=== PATIENT | male | born 1960 | race Caucasian/White ===

== ENCOUNTER 2017-10-22 09:22 | Day surgery (SDC) | payer OTHER ==
[2017-10-19 16:17] VITALS: BMI 24.4
[~2017-10-22 09:22] MED LIST: LACTATED RINGERS 1,000 ML IV SCH; LIDOCAINE 1% 20 ML VIAL (10MG/ML) FOR IV START INTRADERMA PRN; MIDAZOLAM 2 MG/2 ML VIAL IV PRN
[2017-10-22 09:42] VITALS: TEMP 98.3
[2017-10-22] MEDS ORDERED: PROPOFOL 10 MG/ML 20 ML VIAL IV ONE (10:30)
[2017-10-22] MEDS ORDERED: LIDOCAINE 1% INJ 10MG/ML (20 ML MDV) ONE (10:30)
--- NOTE | 2017-10-22 10:45 | P.GSHP ---
History of Present Illness H&P Date: 10/22/17 Chief Complaint: History of colon polyps 's is a 56-year-old male with extensive colonoscopy. Patient has had. Colonoscopy is found have colon polyps. He presents today for colonoscopy. Past Medical History Additional Past Medical History / Comment(s): colon polyps History of Any Multi-Drug Resistant Organisms: MRSA Date of last positivie culture/infection: 2015 MDRO Source:: rt leg Past Surgical History: Tonsillectomy Additional Past Surgical History / Comment(s): surgery to finger Past Anesthesia/Blood Transfusion Reactions: Motion Sickness Smoking Status: Never smoker - Past Family History Brother(s) Family Medical History: Cancer Additional Family Medical History / Comment(s): melanoma on face Medications and Allergies Home Medications Medication Instructions Recorded Confirmed Type Calcium Carb/Magnesium Ox,Carb 1 tab PO DAILY 10/19/17 10/22/17 History [Yohan-Mag 500-250 MG Chewable] Calcium Chew 1 tab PO DAILY 10/19/17 10/22/17 History Allergies Allergy/AdvReac Type Severity Reaction Status Date / Time Penicillins Allergy Rash/Hives Verified 10/22/17 09:39 Surgical - Exam Vital Signs Temp Pulse Resp BP Pulse Ox 98.3 F 87 16 148/87 96 10/22/17 09:39 10/22/17 09:39 10/22/17 09:39 10/22/17 09:39 10/22/17 09:39 - General well developed, no distress - Eyes PERRL - ENT normal pinna - Neck no masses - Respiratory normal expansion - Cardiovascular Rhythm: regular - Abdomen Abdomen: soft, non tender Assessment and Plan Assessment: History: Polyps. We'll perform colonoscopy.
--- NOTE | 2017-10-22 10:53 | P.OP ---
Date of Procedure: 10/22/17 Preoperative Diagnosis: History colonic Polyps Postoperative Diagnosis: Rectal polyp Procedure(s) Performed: Colonoscopy Anesthesia: MAC Surgeon: Ebenezer Singer Pathology: other (Rectal polyp) Condition: stable Disposition: PACU Description of Procedure: The patient's placed on the endoscopy table in the lateral position. He received IV sedation. Digital rectal exam was performed which revealed no abnormalities. The flexible colonoscope was then placed patient anus and passed throughout the entire colon. The ileocecal valve was visualized. The cecum appeared normal. The ascending and transverse colon appeared normal. The descending and sigmoid colon appeared normal. The scope was then brought back the rectum and there was a small polyp seen this removed the forcep. Scope was withdrawn for patient.
[2017-10-22 11:22] VITALS: BP 117/76; PULSE 69; RESP 18
--- NOTE | 2017-10-26 14:40 | CDI ---
OP PHYSICIAN DOCUMENTATION CLARIFICATION REQUEST Date: 10/26/17 CDS/Car Icer Name: Judith Rodriguez Phone: If any questions, call Dimple Tony Client Resolution Specialist at [phone] Patient Name: Aly Olivera Admit Date: 10/22/17 Discharge Date: 10/22/17 ATTENTION: [facility] Coding Staff appreciate your assistance in clarifying documentation. Please respond to the clarification below the line at the bottom and electronically sign. [facility] Coding staff will review the response and follow-up if needed. Please note: Queries are made part of the Legal Health Record. If you have any questions, please contact the Client Resolution Specialist. Dear Dr. Singer, Please provide clarification as to the method that the rectal polyp was removed. Please clarify if it was hot or cold biopsy. The polyp was removed with the cold forcep MTDD
== END 2017-10-22 11:45 | disposition home or self-care (01) ==
LOC: ORWHC2ENDO 09:22
PROVIDERS: ATTEND Surgery
DX: Z12.11 Encounter for screening for malignant neoplasm of colon (principal); Z86.010 Personal history of colon polyps; D12.8 Benign neoplasm of rectum; Z86.14 Personal history of Methicillin resistant Staphylococcus aureus infection; Z88.0 Allergy status to penicillin
CPT/HCPCS: 88305; 45380; J2001; J2704

== ENCOUNTER 2021-01-23 09:20 | Day surgery (SDC) | payer OTHER ==
[2021-01-21 16:24] VITALS: BMI 25.7
[~2021-01-23 09:20] MED LIST changes: +LIDOCAINE 1% (10MG/ML) FOR IV START INTRADERMA PRN; -LIDOCAINE 1% 20 ML VIAL (10MG/ML) FOR IV START INTRADERMA PRN; -MIDAZOLAM 2 MG/2 ML VIAL IV PRN
[2021-01-23 09:54] VITALS: TEMP 97.3
[2021-01-23] MEDS ORDERED: LACTATED RINGERS 1,000 ML IV ONE (09:54)
[2021-01-23] MEDS ORDERED: PROPOFOL 10 MG/ML 20 ML VIAL IV ONE (10:24)
--- NOTE | 2021-01-23 10:31 | P.GSHP ---
History of Present Illness H&P Date: 01/23/21 Chief Complaint: History of colon polyps This a 6-year-old male with previous history of colon polyps. Patient rents today for colonoscopy Past Medical History Past Medical History: GERD/Reflux Additional Past Medical History / Comment(s): colon polyps History of Any Multi-Drug Resistant Organisms: MRSA Date of last positivie culture/infection: 2015 MDRO Source:: rt leg Past Surgical History: Tonsillectomy Additional Past Surgical History / Comment(s): surgery to finger, COLONOSCOPY X2 Past Anesthesia/Blood Transfusion Reactions: Motion Sickness Smoking Status: Never smoker - Past Family History Brother(s) Family Medical History: Cancer Additional Family Medical History / Comment(s): melanoma on face Medications and Allergies Home Medications Medication Instructions Recorded Confirmed Type Omeprazole [PriLOSEC] 20 mg PO AC-BRKFST 01/21/21 01/21/21 History Allergies Allergy/AdvReac Type Severity Reaction Status Date / Time Penicillins Allergy Rash/Hives Verified 01/21/21 15:54 Surgical - Exam Vital Signs Temp Pulse Resp BP Pulse Ox 97.3 F L 94 18 140/88 99 01/23/21 09:52 01/23/21 09:52 01/23/21 09:52 01/23/21 09:52 01/23/21 09:52 - General well developed, well nourished, no distress - Eyes PERRL - ENT normal pinna - Neck no masses - Respiratory normal expansion - Cardiovascular Rhythm: regular - Abdomen Abdomen: soft, non tender Assessment and Plan Assessment: We'll perform colonoscopy.
--- NOTE | 2021-01-23 10:46 | P.OP ---
Date of Procedure: 01/23/21 Preoperative Diagnosis: History of colon polyps Postoperative Diagnosis: Transverse colon polyp Procedure(s) Performed: Colonoscopy Anesthesia: MAC Surgeon: Ebenezer Singer Pathology: other (Transverse colon polyp) Condition: stable Disposition: PACU Description of Procedure: The patient's placed on the endoscopy table in the lateral position. He received IV sedation. Digital rectal exam was performed which revealed a few external hemorrhoids. The possible colonoscope was then placed patient anus p assed throughout the entire colon. The ileocecal valve was visualized. Cecum, ascending colon appeared normal. In the transverse colon there was a small polyp seen was removed with the cold forcep. The remainder of the transverse colon appeared normal. The descending and sigmoid colon. Scope was brought back the rectum this appeared normal. Scope withdrawn for patient.
[2021-01-23 11:00] VITALS: RESP 16
[2021-01-23 11:07] VITALS: BP 121/71; PULSE 89
== END 2021-01-23 11:38 | disposition home or self-care (01) ==
LOC: ORWHC2ENDO 09:20
PROVIDERS: ATTEND Surgery
DX: Z12.11 Encounter for screening for malignant neoplasm of colon (principal); D12.3 Benign neoplasm of transverse colon; K21.9 Gastro-esophageal reflux disease without esophagitis; K64.4 Residual hemorrhoidal skin tags; Z86.010 Personal history of colon polyps; Z86.14 Personal history of Methicillin resistant Staphylococcus aureus infection; Z90.89 Acquired absence of other organs; Z98.890 Other specified postprocedural states; Z80.8 Family history of malignant neoplasm of other organs or systems; Z79.899 Other long term (current) drug therapy; Z88.0 Allergy status to penicillin
CPT/HCPCS: 88305; 45380; J2704

== ENCOUNTER 2022-11-02 10:11 | Emergency (ER) | payer OTHER ==
[2022-11-02 11:05] VITALS: RESP 18
--- NOTE | 2022-11-02 11:05 | ED ---
GI Bleed HPI - General Chief complaint: GI Bleed Stated complaint: blood in stool Time Seen by Provider: 11/02/22 10:35 Source: patient, RN notes reviewed Mode of arrival: ambulatory Limitations: no limitations - History of Present Illness Initial comments: Patient is a pleasant 61-year-old male presenting to the emergency room with complaints of gastrointestinal bleeding. He reports that he noticed some darker stool approximately 3 days ago and then yesterday his stool changed to a dark tarry sticky-like consistency which it continues to be. He also reports some blood coloring/tinging to the dark black stool. He had some indigestion previously when symptoms first began but his heartburn symptoms resolved with the use of his as needed prescription of Prevacid. He does have a history of bleeding gastric ulcer when he was a teenager but had did not have any bloody stools from this event. He also has a history of colonoscopies with multiple polyps removed and she is due for repeat colonoscopy at this time. He states that he is not on any blood thinners. He reports that his heartburn symptoms are rare and he is not having any at this time. He denies any other complaints or concerns including any chest pain, abdominal pain, shortness of breath, nausea, vomiting, headache, dizziness, fevers or chills. He has no other significant medical history except as stated above. - Related Data Home Medications Medication Instructions Recorded Confirmed Omeprazole [PriLOSEC] 20 mg PO DAILY PRN 01/21/21 11/02/22 Allergies Allergy/AdvReac Type Severity Reaction Status Date / Time Penicillins Allergy Rash/Hives Verified 11/02/22 11:39 Review of Systems ROS Statement: Those systems with pertinent positive or pertinent negative responses have been documented in the HPI. ROS Other: All systems not noted in ROS Statement are negative. Past Medical History Past Medical History: GERD/Reflux Additional Past Medical History / Comment(s): colon polyps History of Any Multi-Drug Resistant Organisms: MRSA Date of last positivie culture/infection: 2015 MDRO Source:: rt leg Past Surgical History: Tonsillectomy Additional Past Surgical History / Comment(s): surgery to finger, COLONOSCOPY X2 Past Anesthesia/Blood Transfusion Reactions: Motion Sickness Past Psychological History: No Psychological Hx Reported Smoking Status: Never smoker Past Alcohol Use History: Occasional Past Drug Use History: None Reported - Past Family History Brother(s) Family Medical History: Cancer Additional Family Medical History / Comment(s): melanoma on face General Exam Limitations: no limitations General appearance: alert, in no apparent distress Head exam: Present: atraumatic, normocephalic, normal inspection Eye exam: Present: normal appearance, PERRL, EOMI. Absent: scleral icterus, conjunctival injection, periorbital swelling ENT exam: Present: normal exam, mucous membranes moist Neck exam: Present: normal inspection, full ROM Respiratory exam: Present: normal lung sounds bilaterally. Absent: respiratory distress, wheezes, rales, rhonchi, stridor Cardiovascular Exam: Present: regular rate, normal rhythm, normal heart sounds. Absent: systolic murmur, diastolic murmur, rubs, gallop, clicks GI/Abdominal exam: Present: soft, normal bowel sounds. Absent: distended, tenderness, guarding, rebound, rigid, mass Rectal exam: Present: normal rectal tone, heme (+) stool. Absent: fecal impaction, hemorrhoids, mass, tenderness Extremities exam: Present: normal inspection. Absent: pedal edema, joint swelling Back exam: Present: normal inspection Neurological exam: Present: alert, oriented X3, CN II-XII intact Psychiatric exam: Present: normal affect, normal mood Skin exam: Present: warm, dry, intact, normal color. Absent: rash Course Vital Signs 11/02/22 11/02/22 11/02/22 10:23 11:05 12:41 Temperature 98.2 F 97.7 F Pulse Rate 100 89 80 Respiratory 20 18 18 Rate Blood Pressure 132/84 126/90 131/86 O2 Sat by Pulse 99 98 95 Oximetry Medical Decision Making - Medical Decision Making Was pt. sent in by a medical professional or institution (, PA, [employer], urgent care, hospital, or intermediate...) When possible be specific @ -No Did you speak to anyone other than the patient for history (EMS, parent, family, police, friend...)? What history was obtained from this source @ -No Did you review nursing and triage notes (agree or disagree)? Why? @ -I reviewed and agree with nursing and triage notes Were old charts reviewed (outside hosp., previous admission, EMS record, old EKG, old radiological studies, urgent care reports/EKG's, intermediate records)? Report findings @ -No old charts were reviewed Differential Diagnosis (chest pain, altered mental status, abdominal pain women, abdominal pain men, vaginal bleeding, weakness, fever, dyspnea, syncope, headache, dizziness, GI bleed, back pain, seizure, CVA, palpatations, mental health, musculoskeletal)? @ -Differential GI Bleed: Esophageal varices, aortoenteric fistula, Fadia-Chavez, gastritis, peptic ulcer disease, diverticulosis, inflammatory bowel disease, hemorrhoids, fissure, colitis, malignancy, Meckels diverticulum, this is not meant to be an all- inclusive list. EKG interpreted by me (3pts min.). @ -Sinus rhythm, ventricular rate 79 bpm, WA interval 146 ms, QRS duration 90 ms, QT/QTC 333/365 ms, PRT axes 52, 40, 47. X-rays interpreted by me (1pt min.). @ -None done CT interpreted by me (1pt min.). @ -CT of the abdomen and pelvis with contrast no evidence of underlying etiology of gastrointestinal bleeding. No obstruction or free fluid or free air. Per radiologist report intraluminal lipoma within the distal loop of the ileum quadrant small bowel appears to be surrounding mesentery just proximal to the intraluminal lipoma without intussusception. U/S interpreted by me (1pt. min.). @ -None done What testing was considered but not performed or refused? (CT, X-rays, U/S, labs)? Why? @ -None What meds were considered but not given or refused? Why? @ -Analgesics and antiemetics offered and declined. Did you discuss the management of the patient with other professionals (prof haddad i.e. , PA, [employer], lab, RT, psych nurse, oncology social work, reducing machine operator, teacher, staff mine warfare officer, case management rn)? Give summary @ -Yes, spoke with GI specialist on-call x[facility]ray [place] who is accepting of patient to their service but for patient to be presented to the emergency room under Dr. Rhonda easton for ERT ER transfer for further evaluation of GI bleed due to GI services not being available at our facility and requesting transfer to [facility]. Was smoking cessation discussed for >3mins.? @ -No Was critical care preformed (if so, how long)? @ -No Were there social determinants of health that impacted care today? How? (Homelessness, low income, unemployed, alcoholism, drug addiction, transportation, low edu. Level, literacy, decrease access to med. care, fdc, rehab)? @ -No Was there de-escalation of care discussed even if they declined (Discuss DNR or withdrawal of care, Hospice)? DNR status @ -No What co-morbidities impacted this encounter? (DM, HTN, Smoking, COPD, CAD, Cancer, CVA, ARF, Chemo, Hep., AIDS, mental health diagnosis, sleep apnea, morbid obesity)? @ -None Was patient admitted / discharged? Hospital course, mention meds given and route, prescriptions, significant lab abnormalities, going to OR and other pertinent info. @ -61-year-old male presenting to the emergency room with complaints of bloody tarry stool ongoing for 2-3 days with worsening of stool presentation in the last 24 hours. We've episode of heartburn now resolved after home Pepcid dosing. Digital rectal exam completed showing no anal fissures no significant rectal tenderness normal rectal tone and stool occult blood obtained. Will start workup for GI bleed with further laboratory studies of CBC, CMP, lactic acid, magnesium, troponin, coags, CBC and type and screen. Will obtain CT of the abdomen and pelvis with contrast along with EKG. Analgesics and antiemetics offered and declined. Asymptomatic of anemia will hold IV fluids at this time as well. CBC normal, coags normal, CMP shows low sodium at 136 otherwise no abnormalities normal renal function, normal liver function, normal alkaline phosphate, normal remaining electrolytes including magnesium. Lactic acid 0.9. Stool focal blood positive. Advised patient to to know GI coverage availability patient will need transfer to another facility. Patient is requesting to be transferred to [facility]. After computed tomography scan is completed will begin transfer arrangements. Computed tomography scan with incidental finding of lipoma not likely affecting current GI bleed. No intussusception secondary to lipoma. No underlying etiology of GI bleed identified on computed tomography scan. Spoke with Dr. Helm at [facility] where patient wishes to be transferred for GI services along with GI specialist on-call who accepted the patient to be transferred from our ER to their ER. Will transfer patient in stable condition to [facility] emergency room for further evaluation and treatment of GI bleed. Undiagnosed new problem with uncertain prognosis? @ -No Drug Therapy requiring intensive monitoring for toxicity (Heparin, Nitro, Insulin, Cardizem)? @ -No Were any procedures done? @ -No Diagnosis/symptom? @ -GI bleed Acute, or Chronic, or Acute on Chronic? @ -Acute Uncomplicated (without systemic symptoms) or Complicated (systemic symptoms)? @ -Complicated Side effects of treatment? @ -No Exacerbation, Progression, or Severe Exacerbation? @ -No Poses a threat to life or bodily function? How? (Chest pain, USA, AL, pneumonia, PE, COPD, DKA, ARF, appy, cholecystitis, CVA, Diverticulitis, Homicidal, Suicidal, threat to staff... and all critical care pts) @ -Yes, GI bleed at risk for anemia and associated symptoms related to anemia. Case discussed with Dr. Meyer - Lab Data Result diagrams: 11/02/22 10:55 11/02/22 10:55 Lab Results 11/02/22 11/02/22 11/02/22 Range/Units 10:55 10:55 10:55 WBC 7.0 (3.8-10.6) k/uL RBC 4.92 (4.30-5.90) m/uL Hgb 14.5 (13.0-17.5) gm/dL Hct 43.6 (39.0-53.0) % MCV 88.6 (80.0-100.0) fL MCH 29.5 (25.0-35.0) pg MCHC 33.3 (31.0-37.0) g/dL RDW 12.9 (11.5-15.5) % Plt Count 262 (150-450) k/uL MPV 7.2 Neutrophils % 56 % Lymphocytes % 33 % Monocytes % 5 % Eosinophils % 3 % Basophils % 1 % Neutrophils # 3.9 (1.3-7.7) k/uL Lymphocytes # 2.3 (1.0-4.8) k/uL Monocytes # 0.3 (0-1.0) k/uL Eosinophils # 0.2 (0-0.7) k/uL Basophils # 0.1 (0-0.2) k/uL PT 9.7 (9.0-12.0) sec INR 0.9 (<1.2) APTT 23.4 (22.0-30.0) sec Sodium (137-145) mmol/L Potassium (3.5-5.1) mmol/L Chloride (98-107) mmol/L Carbon Dioxide (22-30) mmol/L Anion Gap mmol/L BUN (9-20) mg/dL Creatinine (0.66-1.25) mg/dL Est GFR (CKD-EPI)AfAm (>60 ml/min/1.73 sqM) Est GFR (CKD-EPI)NonAf (>60 ml/min/1.73 sqM) Glucose (74-99) mg/dL Plasma Lactic Acid Tad (0.7-2.0) mmol/L Calcium (8.4-10.2) mg/dL Magnesium (1.6-2.3) mg/dL Total Bilirubin (0.2-1.3) mg/dL AST (17-59) U/L ALT (4-49) U/L Alkaline Phosphatase (38-126) U/L Troponin I (0.000-0.034) ng/mL Total Protein (6.3-8.2) g/dL Albumin (3.5-5.0) g/dL Stool Occult Blood Positive (Negative) Blood Type Blood Type Confirm Blood Type Recheck Bld Type Recheck Status Antibody Screen Spec Expiration Date 11/02/22 11/02/22 11/02/22 Range/Units 10:55 10:55 10:55 WBC (3.8-10.6) k/uL RBC (4.30-5.90) m/uL Hgb (13.0-17.5) gm/dL Hct (39.0-53.0) % MCV (80.0-100.0) fL MCH (25.0-35.0) pg MCHC (31.0-37.0) g/dL RDW (11.5-15.5) % Plt Count (150-450) k/uL MPV Neutrophils % % Lymphocytes % % Monocytes % % Eosinophils % % Basophils % % Neutrophils # (1.3-7.7) k/uL Lymphocytes # (1.0-4.8) k/uL Monocytes # (0-1.0) k/uL Eosinophils # (0-0.7) k/uL Basophils # (0-0.2) k/uL PT (9.0-12.0) sec INR (<1.2) APTT (22.0-30.0) sec Sodium 136 L (137-145) mmol/L Potassium 4.4 (3.5-5.1) mmol/L Chloride 103 (98-107) mmol/L Carbon Dioxide 26 (22-30) mmol/L Anion Gap 7 mmol/L BUN 18 (9-20) mg/dL Creatinine 1.05 (0.66-1.25) mg/dL Est GFR (CKD-EPI)AfAm 89 (>60 ml/min/1.73 sqM) Est GFR (CKD-EPI)NonAf 77 (>60 ml/min/1.73 sqM) Glucose 95 (74-99) mg/dL Plasma Lactic Acid Tad 0.9 (0.7-2.0) mmol/L Calcium 9.0 (8.4-10.2) mg/dL Magnesium 2.0 (1.6-2.3) mg/dL Total Bilirubin 0.6 (0.2-1.3) mg/dL AST 20 (17-59) U/L ALT 22 (4-49) U/L Alkaline Phosphatase 57 (38-126) U/L Troponin I <0.012 (0.000-0.034) ng/mL Total Protein 6.9 (6.3-8.2) g/dL Albumin 4.0 (3.5-5.0) g/dL Stool Occult Blood (Negative) Blood Type Blood Type Confirm Blood Type Recheck Bld Type Recheck Status Antibody Screen Spec Expiration Date 11/02/22 11/02/22 Range/Units 10:55 11:00 WBC (3.8-10.6) k/uL RBC (4.30-5.90) m/uL Hgb (13.0-17.5) gm/dL Hct (39.0-53.0) % MCV (80.0-100.0) fL MCH (25.0-35.0) pg MCHC (31.0-37.0) g/dL RDW (11.5-15.5) % Plt Count (150-450) k/uL MPV Neutrophils % % Lymphocytes % % Monocytes % % Eosinophils % % Basophils % % Neutrophils # (1.3-7.7) k/uL Lymphocytes # (1.0-4.8) k/uL Monocytes # (0-1.0) k/uL Eosinophils # (0-0.7) k/uL Basophils # (0-0.2) k/uL PT (9.0-12.0) sec INR (<1.2) APTT (22.0-30.0) sec Sodium (137-145) mmol/L Potassium (3.5-5.1) mmol/L Chloride (98-107) mmol/L Carbon Dioxide (22-30) mmol/L Anion Gap mmol/L BUN (9-20) mg/dL Creatinine (0.66-1.25) mg/dL Est GFR (CKD-EPI)AfAm (>60 ml/min/1.73 sqM) Est GFR (CKD-EPI)NonAf (>60 ml/min/1.73 sqM) Glucose (74-99) mg/dL Plasma Lactic Acid Tad (0.7-2.0) mmol/L Calcium (8.4-10.2) mg/dL Magnesium (1.6-2.3) mg/dL Total Bilirubin (0.2-1.3) mg/dL AST (17-59) U/L ALT (4-49) U/L Alkaline Phosphatase (38-126) U/L Troponin I (0.000-0.034) ng/mL Total Protein (6.3-8.2) g/dL Albumin (3.5-5.0) g/dL Stool Occult Blood (Negative) Blood Type O Positive Blood Type Confirm O Positive Blood Type Recheck No Previous Record Bld Type Recheck Status CABO Indicated Antibody Screen NEGATIVE Spec Expiration Date 11/05/2022 4432 - Radiology Data Radiology results: report reviewed, image reviewed Disposition Clinical Impression: GI (gastrointestinal bleed) Disposition: OTHER INSTITUTION NOT DEFINED Condition: Stable Referrals: Arvind Santamaria DO [Primary Care Provider] - 1-2 days Time of Disposition: 13:19 - Out of Hospital Transfer - Req. Specs Out of Hospital Transfer - Requested Specifics: Other Emergency Center (ER to [facility] accepting provider Dr. Helm)
[2022-11-02 11:13] LABS: Basophils # (A) 0.1 k/uL (0-0.2); Basophils % (A) 1 %; Eosinophils # (A) 0.2 k/uL (0-0.7); Eosinophils % (A) 3 %; HCT 43.6 % (39.0-53.0); HGB 14.5 gm/dL (13.0-17.5); Lymphocytes # (A) 2.3 k/uL (1.0-4.8); Lymphocytes % (A) 33 %; MCH 29.5 pg (25.0-35.0); MCHC 33.3 g/dL (31.0-37.0); MCV 88.6 fL (80.0-100.0); Mean Platelet Volume 7.2; Monocytes # (A) 0.3 k/uL (0-1.0); Monocytes % (A) 5 %; Neutrophils # (A) 3.9 k/uL (1.3-7.7); Neutrophils % (A) 56 %; Platelet Count 262 k/uL (150-450); RBC 4.92 m/uL (4.30-5.90); RDW 12.9 % (11.5-15.5)
[2022-11-02 11:21] LABS: INR 0.9 (<1.2); Partial Thromboplastin Time 23.4 sec (22.0-30.0); Prothrombin Time 9.7 sec (9.0-12.0)
[2022-11-02 11:32] LABS: ALT 22 U/L (4-49); AST 20 U/L (17-59); African American GFR (CKD) 89 (>60 ml/min/1.73 sqM); Alkaline Phosphatase 57 U/L (38-126); Anion Gap 7 mmol/L; Blood Urea Nitrogen 18 mg/dL (9-20); Carbon Dioxide 26 mmol/L (22-30); Chloride 103 mmol/L (98-107); Glucose 95 mg/dL (74-99); Non-African American GFR(CKD) 77 (>60 ml/min/1.73 sqM); Potassium 4.4 mmol/L (3.5-5.1); Sodium 136 mmol/L (137-145); Total Bilirubin 0.6 mg/dL (0.2-1.3); Total Protein 6.9 g/dL (6.3-8.2)
[2022-11-02 12:43] VITALS: TEMP 97.7
--- NOTE | 2022-11-02 13:00 | CT ---
EXAMINATION TYPE: CT abdomen pelvis w con DATE OF EXAM: 11/02/2022 COMPARISON: None INDICATION: Dark stool DLP: 976.6 mGycm, Automated exposure control for dose reduction was used. CONTRAST: 100 mL of Isovue 300. Study performed without Oral Contrast TECHNIQUE: Axial images were obtained from above the diaphragm to the pubic rami in the axial plane a t 5 mm thick sections. Reconstructed images are reviewed on the computer in the coronal plane. FINDINGS: Limited CT sections are obtained the lung bases. The lung bases are clear. CT ABDOMEN: Liver: Normal Spleen: Normal Pancreas: Normal Adrenal glands: The adrenal glands are normal. Gallbladder: Normal Kidneys: No masses are evident. No hydronephrosis is present. No cysts are present. Delayed images were obtained through the kidneys, which remain unremarkable. Aorta: Vascular calcification is within the aorta. Inferior vena cava: Normal. CT PELVIS: Study is without oral contrast which limits bowel evaluation. There is a loop of bowel surrounding a fatty area within the right lower quadrant. This appears to be small bowel loop and mesenteric fat. N o obvious volvulus is evident. Additionally, within the proximal distal ileum there is a 2.5 cm low d ensity structure compatible with the intraluminal fat lipoma measuring -79 Hounsfield units. No intus susception is evident this time. Appendix: Normal as visualized. Not identified. No dilated tubular structure or inflammatory changes are evident. Urinary bladder: Normal. Genitourinary structures: Osseous structures: No suspicious lytic or sclerotic lesions. IMPRESSIONS: 1. Appears to be an intraluminal lipoma within the distal loop of ileum quadrant. 2. Small bowel appears to be surrounding mesentery just proximal to the intraluminal lipoma. 3. No intussusception at this time.
[2022-11-02 14:16] VITALS: BP 110/58; PULSE 79
== END 2022-11-02 14:16 | disposition other institution (70) ==
LOC: EC 10:11
DX: K92.2 Gastrointestinal hemorrhage, unspecified (principal); K21.9 Gastro-esophageal reflux disease without esophagitis; Z88.0 Allergy status to penicillin; Z79.899 Other long term (current) drug therapy
CPT/HCPCS: 36415; 93005; 86900; 86901; 80053; 83605; 83735; 84484; 85025; 85610; 85730; 86850; 82272; 74177; 99285; Q9967

== ENCOUNTER → 2022-12-30 | Outpatient (CLI) | payer OTHER ==
--- NOTE | 2022-12-30 13:52 | FL ---
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 All patient questions were ans wered prior to start of procedure. A linen room attendant radiograph of the abdomen was also reviewed. Multiple flu oroscopic spot images of the esophagus, stomach and duodenum were obtained following ingestion of liq uid barium. After the completion of the upper gastrointestinal examination, a detailed small bowel e xamination was performed. The patient was asked to ingest additional liquid barium and incremental f rontal abdominal radiographs were then taken until contrast was visualized in the cecum. Fluoroscopic time: 1 minute 18 seconds Fluoroscopic images: 0 Radiographs taken: 77 DAP: Not reported due to age of machine [id number] FINDINGS: Upper GI examination: The linen room attendant abdominal radiograph demonstrates a normal bowel gas pattern without dilated loops of small or large bowel. There is no evidence for organomegaly or pneumoperitoneum. No abnormal calcificati ons. The visualized osseous structures are intact. The esophagus appears unremarkable without evidence of focal stricture, ulceration or abnormal outpou fifi. No hiatal hernia was visualized. No evidence of gastroesophageal reflux was seen when the p atient was instructed to bear down. The stomach and duodenum demonstrate a normal course and contou r. There is no evidence of focal gastric or duodenal ulceration, stricture, or abnormal outpouching. Small bowel mucosal folds are felt to be within normal limits. Detailed small bowel examination: Contrast is seen extending from the duodenojejunal junction into the cecum after two hours, which is within the expected time period. The small bowel follows normal distribution and contour without any evidence of extraluminal or intraluminal irregularity. There is no displacement of bowel loops or e xtraluminal extravasation of contrast material. IMPRESSION: 1. Normal upper gastrointestinal examination. 2. Normal detailed small bowel examination.
== END | disposition home or self-care (01) ==
LOC: RADFLMAIN 08:52
PROVIDERS: ATTEND Surgery
DX: D17.5 Benign lipomatous neoplasm of intra-abdominal organs (principal)
CPT/HCPCS: 74240; 74248

== ENCOUNTER 2023-02-18 18:47 | Inpatient (IN) | payer OTHER ==
[2023-02-18] MEDS ORDERED: SODIUM CHLORIDE 0.9% 1,000 ML IV STA (20:41)
[2023-02-18] MEDS ORDERED: ONDANSETRON 4 MG/2 ML VIAL IVP STA (20:41)
[2023-02-18] MEDS ORDERED: MORPHINE SULFATE 4 MG/ML SYRINGE IVP STA (20:42)
[2023-02-18 21:34] LABS: Basophils % (A) 0 %; Eosinophils # (A) 0.1 k/uL (0-0.7); Eosinophils % (A) 0 %; HGB 13.1 gm/dL (13.0-17.5); Lymphocytes # (A) 1.6 k/uL (1.0-4.8); Lymphocytes % (A) 12 %; MCH 27.9 pg (25.0-35.0); MCHC 32.7 g/dL (31.0-37.0); MCV 85.1 fL (80.0-100.0); Mean Platelet Volume 6.9; Monocytes # (A) 0.6 k/uL (0-1.0); Monocytes % (A) 4 %; Neutrophils # (A) 10.6 k/uL (1.3-7.7); Neutrophils % (A) 82 %; Platelet Count 385 k/uL (150-450); RDW 13.1 % (11.5-15.5)
[2023-02-18 21:35] LABS: Appearance,Urine Clear (Clear); Bilirubin,Urine Negative (Negative); Blood,Urine Negative (Negative); Color,Urine Yellow; Glucose,Urine (UA) Negative (Negative); Ketones,Urine 1+ (Negative); Leukocyte Esterase,Urine Negative (Negative); Nitrite,Urine Negative (Negative); Protein,Urine Trace (Negative); Specific Gravity,Urine 1.026 (1.001-1.035)
[2023-02-18 21:44] LABS: ALT 20 U/L (4-49); AST 18 U/L (17-59); African American GFR (CKD) >90 (>60 ml/min/1.73 sqM); Albumin 4.2 g/dL (3.5-5.0); Alkaline Phosphatase 80 U/L (38-126); Amylase 51 U/L (30-110); Anion Gap 12 mmol/L; Blood Urea Nitrogen 13 mg/dL (9-20); Calcium 9.5 mg/dL (8.4-10.2); Carbon Dioxide 25 mmol/L (22-30); Chloride 99 mmol/L (98-107); Glucose 118 mg/dL (74-99); Lipase 103 U/L (23-300); Non-African American GFR(CKD) >90 (>60 ml/min/1.73 sqM); Sodium 136 mmol/L (137-145); Total Bilirubin 0.5 mg/dL (0.2-1.3); Total Protein 7.2 g/dL (6.3-8.2)
[2023-02-18] MEDS ORDERED: FAMOTIDINE 20 MG/2 ML VIAL IV STA (23:04)
[2023-02-18] MEDS ORDERED: HYDROmorphone 1 MG/ML 1 ML SYRINGE IVP STA (23:19)
--- NOTE | 2023-02-18 23:26 | CT ---
EXAM: CT Abdomen and Pelvis With Intravenous Contrast CLINICAL HISTORY: CT Reason: abdominal pain TECHNIQUE: Axial computed tomography images of the abdomen and pelvis with intravenous contrast. CTDI is 19.0 mGy and DLP is 1060.3 mGy-cm. This CT exam was performed using one or more of the following dose reduction techniques: automated exposure control, adjustment of the mA and/or kV according to patient size, and/or use of iterative reconstruction technique. COMPARISON: November 02, 2022 FINDINGS: Lung bases: Trace amount of bibasilar subsegmental atelectasis in the lungs. ABDOMEN: Liver: Fatty infiltration of the liver. No focal liver lesion is seen. Gallbladder and bile ducts: Unremarkable. No calcified stones. No ductal dilation. Pancreas: Unremarkable. No mass. No ductal dilation. Spleen: Unremarkable. No splenomegaly. Adrenals: Unremarkable. No mass. Kidneys and ureters: Unremarkable. No solid mass. No hydronephrosis. Stomach and bowel: There is an approximately 7-8 cm long segment of small bowel to right colon intussusception. There appears to be a 2 cm fat density mass at the lead point. Scattered gas fluid levels throughout mildly distended but nondilated proximal to mid small bowel loops suggesting mild ileus or low-grade bowel obstruction. No pneumoperitoneum or abscess is seen. PELVIS: Appendix: No findings to suggest acute appendicitis. Bladder: Unremarkable. No mass. Reproductive: Unremarkable as visualized. ABDOMEN and PELVIS: Intraperitoneal space: There is a trace amount of free fluid in the pelvis. Bones/joints: Mild degenerative changes in the spine. No acute fracture or subluxation is seen. Soft tissues: Unremarkable. Vasculature: Unremarkable. No abdominal aortic aneurysm. Lymph nodes: Unremarkable. No enlarged lymph nodes. IMPRESSION: 1. There is an approximately 7-8 cm long segment of small bowel to right colon intussusception. There appears to be a 2 cm fat density mass at the lead point. 2. Scattered gas fluid levels throughout mildly distended but nondilated proximal to mid small bowel loops suggesting mild ileus or low-grade bowel obstruction. No pneumoperitoneum or abscess is seen. <MYCVCSECTION> Communications: 02/18/23 23:27 Call Doctor Regarding Above results, called Dr. Mcnally on 02/18 23:26 (-05:00)
[2023-02-18] MEDS ORDERED: NALOXONE 0.4 MG/ML 1 ML VIAL IV PRN (23:39)
[2023-02-18] MEDS ORDERED: PIPERACILLIN-TAZOBACTAM 3.375 GM in SODIUM CHLORIDE 0.9% 100 ML IVPB STA (23:43)
--- NOTE | 2023-02-18 23:45 | ED ---
Abdominal Pain HPI - General Chief Complaint: Abdominal Pain Stated Complaint: Abd Pain, Vomiting Time Seen by Provider: 02/18/23 20:32 Source: patient Mode of arrival: ambulatory Limitations: no limitations - History of Present Illness Initial Comments: 62-year-old male presenting with chief complaint of vomiting and abdominal pain. Symptoms started this morning. Patient states that symptoms initially started with severe pain in the epigastric region, now he has severe cramping pain to the lower abdomen. Admits to persistent nausea and vomiting. No fevers or chills. No dysuria or hematuria. No hematochezia, melena, or hematemesis. - Related Data Home Medications Medication Instructions Recorded Confirmed Omeprazole [PriLOSEC] 20 mg PO DAILY PRN 01/21/21 11/02/22 Allergies Allergy/AdvReac Type Severity Reaction Status Date / Time Penicillins Allergy Rash/Hives Verified 02/18/23 19:06 Review of Systems ROS Statement: Those systems with pertinent positive or pertinent negative responses have been documented in the HPI. ROS Other: All systems not noted in ROS Statement are negative. Past Medical History Past Medical History: GERD/Reflux Additional Past Medical History / Comment(s): colon polyps History of Any Multi-Drug Resistant Organisms: MRSA Date of last positivie culture/infection: 2015 MDRO Source:: rt leg Past Surgical History: Tonsillectomy Additional Past Surgical History / Comment(s): surgery to finger, COLONOSCOPY X2 Past Anesthesia/Blood Transfusion Reactions: Motion Sickness Past Psychological History: No Psychological Hx Reported Smoking Status: Never smoker Past Alcohol Use History: Occasional Past Drug Use History: None Reported - Past Family History Brother(s) Family Medical History: Cancer Additional Family Medical History / Comment(s): melanoma on face General Exam Limitations: no limitations General appearance: alert, in no apparent distress Head exam: Present: atraumatic, normocephalic, normal inspection Eye exam: Present: normal appearance, EOMI Neck exam: Present: normal inspection, full ROM Respiratory exam: Present: normal lung sounds bilaterally. Absent: respiratory distress, wheezes, rales, rhonchi, stridor Cardiovascular Exam: Present: regular rate, normal rhythm, normal heart sounds. Absent: systolic murmur, diastolic murmur, rubs, gallop, clicks GI/Abdominal exam: Present: soft, tenderness. Absent: distended, guarding, rebound, rigid Neurological exam: Present: alert, oriented X3 Psychiatric exam: Present: normal affect, normal mood Skin exam: Present: warm, dry, intact, normal color. Absent: rash Course Vital Signs 02/18/23 02/18/23 02/18/23 19:04 20:26 21:00 Temperature 98.4 F Pulse Rate 102 H 88 Respiratory 20 18 Rate Blood Pressure 149/87 152/86 O2 Sat by Pulse 99 99 98 Oximetry 02/18/23 22:00 Temperature Pulse Rate 79 Respiratory 18 Rate Blood Pressure 140/85 O2 Sat by Pulse 99 Oximetry Medical Decision Making - Medical Decision Making Was pt. sent in by a medical professional or institution (, PA, PATIENT REGISTRATION SUPERVISOR, urgent care, hospital, or snf...) When possible be specific @ -[No] Did you speak to anyone other than the patient for history (EMS, parent, family, police, friend...)? What history was obtained from this source @ -[No] Did you review nursing and triage notes (agree or disagree)? Why? @ -[I reviewed and agree with nursing and triage notes] Were old charts reviewed (outside hosp., previous admission, EMS record, old EKG, old radiological studies, urgent care reports/EKG's, snf records)? Report findings @ -[No old charts were reviewed] Differential Diagnosis (chest pain, altered mental status, abdominal pain women, abdominal pain men, vaginal bleeding, weakness, fever, dyspnea, syncope, headache, dizziness, GI bleed, back pain, seizure, CVA, palpatations, mental health, musculoskeletal)? @ -[facility] Differential Abdominal Pain Men: Appendicitis, cholecystitis, diverticulosis, ischemic bowel, pancreatitis, hepatitis, UTI, gastroenteritis, AAA, incarcerated hernia, bowel obstruction, constipation, inflammatory bowel, hepatitis, peptic ulcer disease, splenic infarction, perforated viscus, testicular torsion... This is not meant to be an all-inclusive list EKG interpreted by me (3pts min.). @ -[As above] X-rays interpreted by me (1pt min.). @ -[None done] CT interpreted by me (1pt min.). @ -There is an approximately 7-8 cm long segment of small bowel to the right colon intussusception. There appears to be 2 cm fat density mass at the lead point. Scattered gas fluid levels throughout mildly distended but nondilated proximal to mid small bowel loops suggesting mild ileus or low-grade bowel obstruction. No pneumoperitoneum or abscess is seen U/S interpreted by me (1pt. min.). @ -[None done] What testing was considered but not performed or refused? (CT, X-rays, U/S, l abs)? Why? @ -[None] What meds were considered but not given or refused? Why? @ -[None] Did you discuss the management of the patient with other professionals (professionals i.e. , PA, PATIENT REGISTRATION SUPERVISOR, lab, RT, psych nurse, social work assistant, big data developer, teacher, police officer booking, manager case)? Give summary @ -I spoke with Dr. Singer who accepted admission Was smoking cessation discussed for >3mins.? @ -[No] Was critical care preformed (if so, how long)? @ -[No] Were there social determinants of health that impacted care today? How? (Homelessness, low income, unemployed, alcoholism, drug addiction, transportation, low edu. Level, literacy, decrease access to med. care, mcc, rehab)? @ -[No] Was there de-escalation of care discussed even if they declined (Discuss DNR or withdrawal of care, Hospice)? DNR status @ -[No] What co-morbidities impacted this encounter? (DM, HTN, Smoking, COPD, CAD, Cancer, CVA, ARF, Chemo, Hep., AIDS, mental health diagnosis, sleep apnea, morbid obesity)? @ -[None] Was patient admitted / discharged? Hospital course, mention meds given and route, prescriptions, significant lab abnormalities, going to OR and other pertinent info. @ -62-year-old male presented chief complaint of abdominal pain nausea and vomiting that started today. History and physical exam were conducted. WBC 13.0. CT shows evidence of intussusception as well as ileus versus small bowel obstruction. I spoke with general surgeon on-call Dr. Singer. He advised starting the patient on antibiotics and he will evaluate the patient in the morning. Patient is placed nothing by mouth. Attempted to place an NG tube, was unsuccessful. Patient is started on Zosyn. He is educated on today's findings and treatment plan. He is in agreement with the plan. I discussed this case with my attending Dr. Dickens Undiagnosed new problem with uncertain prognosis? @ -[No] Drug Therapy requiring intensive monitoring for toxicity (Heparin, Nitro, Insulin, Cardizem)? @ -[No] Were any procedures done? @ -[No] Diagnosis/symptom? @ -Intussusception, small bowel obstruction Acute, or Chronic, or Acute on Chronic? @ -Acute Uncomplicated (without systemic symptoms) or Complicated (systemic symptoms)? @ -complicated Side effects of treatment? @ -[No] Exacerbation, Progression, or Severe Exacerbation? @ -[No] Poses a threat to life or bodily function? How? (Chest pain, USA, SD, pneumonia, PE, COPD, DKA, ARF, appy, cholecystitis, CVA, Diverticulitis, Homicidal, Suicidal, threat to staff... and all critical care pts) @ -Yes - Lab Data Result diagrams: 02/18/23 21:15 02/18/23 21:15 Lab Results 02/18/23 02/18/23 02/18/23 Range/Units 21:15 21:15 21:15 WBC 13.0 H (3.8-10.6) k/uL RBC 4.70 (4.30-5.90) m/uL Hgb 13.1 (13.0-17.5) gm/dL Hct 40.0 (39.0-53.0) % MCV 85.1 (80.0-100.0) fL MCH 27.9 (25.0-35.0) pg MCHC 32.7 (31.0-37.0) g/dL RDW 13.1 (11.5-15.5) % Plt Count 385 (150-450) k/uL MPV 6.9 Neutrophils % 82 % Lymphocytes % 12 % Monocytes % 4 % Eosinophils % 0 % Basophils % 0 % Neutrophils # 10.6 H (1.3-7.7) k/uL Lymphocytes # 1.6 (1.0-4.8) k/uL Monocytes # 0.6 (0-1.0) k/uL Eosinophils # 0.1 (0-0.7) k/uL Basophils # 0.0 (0-0.2) k/uL Sodium 136 L (137-145) mmol/L Potassium 4.0 (3.5-5.1) mmol/L Chloride 99 (98-107) mmol/L Carbon Dioxide 25 (22-30) mmol/L Anion Gap 12 mmol/L BUN 13 (9-20) mg/dL Creatinine 0.91 (0.66-1.25) mg/dL Est GFR (CKD-EPI)AfAm >90 (>60 ml/min/1.73 sqM) Est GFR (CKD-EPI)NonAf >90 (>60 ml/min/1.73 sqM) Glucose 118 H (74-99) mg/dL Plasma Lactic Acid Tad (0.7-2.0) mmol/L Calcium 9.5 (8.4-10.2) mg/dL Total Bilirubin 0.5 (0.2-1.3) mg/dL AST 18 (17-59) U/L ALT 20 (4-49) U/L Alkaline Phosphatase 80 (38-126) U/L Troponin I (0.000-0.034) ng/mL Total Protein 7.2 (6.3-8.2) g/dL Albumin 4.2 (3.5-5.0) g/dL Amylase 51 (30-110) U/L Lipase 103 (23-300) U/L Urine Color Yellow Urine Appearance Clear (Clear) Urine pH 6.0 (5.0-8.0) Ur Specific [place] 1.026 (1.001-1.035) Urine Protein Trace H (Negative) Urine Glucose (UA) Negative (Negative) Urine Ketones 1+ H (Negative) Urine Blood Negative (Negative) Urine Nitrite Negative (Negative) Urine Bilirubin Negative (Negative) Urine Urobilinogen 2.0 (<2.0) mg/dL Ur Leukocyte Esterase Negative (Negative) 02/18/23 02/18/23 Range/Units 21:15 21:15 WBC (3.8-10.6) k/uL RBC (4.30-5.90) m/uL Hgb (13.0-17.5) gm/dL Hct (39.0-53.0) % MCV (80.0-100.0) fL MCH (25.0-35.0) pg MCHC (31.0-37.0) g/dL RDW (11.5-15.5) % Plt Count (150-450) k/uL MPV Neutrophils % % Lymphocytes % % Monocytes % % Eosinophils % % Basophils % % Neutrophils # (1.3-7.7) k/uL Lymphocytes # (1.0-4.8) k/uL Monocytes # (0-1.0) k/uL Eosinophils # (0-0.7) k/uL Basophils # (0-0.2) k/uL Sodium (137-145) mmol/L Potassium (3.5-5.1) mmol/L Chloride (98-107) mmol/L Carbon Dioxide (22-30) mmol/L Anion Gap mmol/L BUN (9-20) mg/dL Creatinine (0.66-1.25) mg/dL Est GFR (CKD-EPI)AfAm (>60 ml/min/1.73 sqM) Est GFR (CKD-EPI)NonAf (>60 ml/min/1.73 sqM) Glucose (74-99) mg/dL Plasma Lactic Acid Tad 1.6 (0.7-2.0) mmol/L Calcium (8.4-10.2) mg/dL Total Bilirubin (0.2-1.3) mg/dL AST (17-59) U/L ALT (4-49) U/L Alkaline Phosphatase (38-126) U/L Troponin I <0.012 (0.000-0.034) ng/mL Total Protein (6.3-8.2) g/dL Albumin (3.5-5.0) g/dL Amylase (30-110) U/L Lipase (23-300) U/L Urine Color Urine Appearance (Clear) Urine pH (5.0-8.0) Ur Specific [place] (1.001-1.035) Urine Protein (Negative) Urine Glucose (UA) (Negative) Urine Ketones (Negative) Urine Blood (Negative) Urine Nitrite (Negative) Urine Bilirubin (Negative) Urine Urobilinogen (<2.0) mg/dL Ur Leukocyte Esterase (Negative) Disposition Clinical Impression: Intussusception, Small bowel obstruction Disposition: ADMITTED IP TO THIS HOSP Condition: Poor Time of Disposition: 23:45
[2023-02-18] MEDS ORDERED: PIPERACILLIN-TAZOBACTAM 3.375 GM in SODIUM CHLORIDE 0.9% 100 ML IVPB ONE (23:49)
[2023-02-19] MEDS: METOCLOPRAMIDE 5 MG/ML 2 ML VIAL IVP PRN ×2 (00:28→10:26)
[2023-02-19] MEDS: SODIUM CHLORIDE 0.9% 1,000 ML IV SCH ×3 (01:00→23:36)
[2023-02-19] MEDS: HYDROmorphone 1 MG/ML 1 ML SYRINGE IVP PRN ×5 (04:04→21:10)
[2023-02-19] MEDS: ONDANSETRON 4 MG/2 ML VIAL IVP PRN ×2 (07:35→21:09)
--- NOTE | 2023-02-19 09:52 | P.GSHP ---
History of Present Illness H&P Date: 02/19/23 Chief Complaint: Small bowel obstruction This a 60-year-old male who was admitted to the hospital complaints of abdominal pain nausea. Patient's CAT scan is suggestive of a small bowel dissection through the ileocecal valve. This may be related to a lipoma or polyp. Patient states she's had crampy abdominal pain for several days. He states she's had several of these attacks over the last year. Past Medical History Past Medical History: GERD/Reflux Additional Past Medical History / Comment(s): colon polyps History of Any Multi-Drug Resistant Organisms: MRSA Date of last positivie culture/infection: 2016 MDRO Source:: rt leg Past Surgical History: Tonsillectomy Additional Past Surgical History / Comment(s): surgery to finger, COLONOSCOPY X2 Past Anesthesia/Blood Transfusion Reactions: Motion Sickness Past Psychological History: No Psychological Hx Reported Smoking Status: Never smoker Past Alcohol Use History: Occasional Past Drug Use History: None Reported - Past Family History Brother(s) Family Medical History: Cancer Additional Family Medical History / Comment(s): melanoma on face Medications and Allergies Home Medications Medication Instructions Recorded Confirmed Type Omeprazole [PriLOSEC] 20 mg PO DAILY 01/21/21 02/19/23 History Cetirizine HCl [Zyrtec] 10 mg PO DAILY 02/19/23 02/19/23 History Magnesium 500 mg PO HS 02/19/23 02/19/23 History Allergies Allergy/AdvReac Type Severity Reaction Status Date / Time Penicillins Allergy Rash/Hives Verified 02/19/23 08:03 Surgical - Exam Vital Signs Temp Pulse Resp BP Pulse Ox 98.4 F 102 H 20 149/87 99 02/18/23 19:04 02/18/23 19:04 02/18/23 19:04 02/18/23 19:04 02/18/23 19:04 - General well developed, well nourished, no distress - Eyes PERRL - ENT normal pinna - Neck no masses - Respiratory normal expansion - Cardiovascular Rhythm: regular - Abdomen Abdomen: soft, non tender Results - Labs 02/18/23 21:15 02/18/23 21:15 Abnormal Lab Results - Last 24 Hours (Table) 02/18/23 02/18/23 02/18/23 Range/Units 21:15 21:15 21:15 WBC 13.0 H (3.8-10.6) k/uL Neutrophils # 10.6 H (1.3-7.7) k/uL Sodium 136 L (137-145) mmol/L Glucose 118 H (74-99) mg/dL Urine Protein Trace H (Negative) Urine Ketones 1+ H (Negative) Diabetes panel 02/18/23 Range/Units 21:15 Sodium 136 L (137-145) mmol/L Potassium 4.0 (3.5-5.1) mmol/L Chloride 99 (98-107) mmol/L Carbon Dioxide 25 (22-30) mmol/L BUN 13 (9-20) mg/dL Creatinine 0.91 (0.66-1.25) mg/dL Glucose 118 H (74-99) mg/dL Calcium 9.5 (8.4-10.2) mg/dL AST 18 (17-59) U/L ALT 20 (4-49) U/L Alkaline Phosphatase 80 (38-126) U/L Total Protein 7.2 (6.3-8.2) g/dL Albumin 4.2 (3.5-5.0) g/dL Calcium panel 02/18/23 Range/Units 21:15 Calcium 9.5 (8.4-10.2) mg/dL Albumin 4.2 (3.5-5.0) g/dL Pituitary panel 02/18/23 Range/Units 21:15 Sodium 136 L (137-145) mmol/L Potassium 4.0 (3.5-5.1) mmol/L Chloride 99 (98-107) mmol/L Carbon Dioxide 25 (22-30) mmol/L BUN 13 (9-20) mg/dL Creatinine 0.91 (0.66-1.25) mg/dL Glucose 118 H (74-99) mg/dL Calcium 9.5 (8.4-10.2) mg/dL Adrenal panel 02/18/23 Range/Units 21:15 Sodium 136 L (137-145) mmol/L Potassium 4.0 (3.5-5.1) mmol/L Chloride 99 (98-107) mmol/L Carbon Dioxide 25 (22-30) mmol/L BUN 13 (9-20) mg/dL Creatinine 0.91 (0.66-1.25) mg/dL Glucose 118 H (74-99) mg/dL Calcium 9.5 (8.4-10.2) mg/dL Total Bilirubin 0.5 (0.2-1.3) mg/dL AST 18 (17-59) U/L ALT 20 (4-49) U/L Alkaline Phosphatase 80 (38-126) U/L Total Protein 7.2 (6.3-8.2) g/dL Albumin 4.2 (3.5-5.0) g/dL Assessment and Plan Assessment: History a small obstruction related to small bowel: Intussusception. Patient will be observed. He may require another repeat computed tomography scan.
--- NOTE | 2023-02-19 10:07 | P.CONS ---
History of Present Illness - Reason for Consult Consult date: 02/19/23 Medical management - History of Present Illness History of present illness; patient is 62-year-old gentleman with past medical history significant for GERD who presented to the ER because of abdominal pain for 2 days. Patient states that he was all right yesterday morning when he started developing abdominal pain which was located in epigastric region, sharp in nature, associated with nausea and vomiting. Initially pain was mild but gradually increased in intensity and became cramping in nature. Denied any altered bowel movements. No complaint of blood in stools. No complaint of prior constipation. There was no complain of any fever or chills. Patient denied any recent eating out in restaurants. No sick contacts in the family. There was no complain of any urinary complaints. Because of these symptoms, patient came to the ER Initial lab work done in the ER showed WBC 13, hemoglobin 13.1, platelet count 385, sodium 1:30, potassium 4, BUN 13, creatinine 0.91, glucose 118, lactate 1.6, AST 18, ALT 20, UA negative for infection CT abdominal pelvis done showed approximately 7-8 cm long segment of small bowel and right colon intussusception there appears to be a 2 cm fat density at the lead point. Patient admitted to general surgery. Medicine team was consulted for medical management REVIEW OF SYSTEMS: CONSTITUTIONAL: No fever, no malaise, no fatigue. HEENT: No recent visual problems or hearing problems. Denied any sore throat. CARDIOVASCULAR: No chest pain, orthopnea, PND, no palpitations, no syncope. PULMONARY: No shortness of breath, no cough, no hemoptysis. GASTROINTESTINAL: As mentioned in HPI NEUROLOGICAL: No headaches, no weakness, no numbness. HEMATOLOGICAL: Denies any bleeding or petechiae. GENITOURINARY: Denies any burning micturition, frequency, or urgency. MUSCULOSKELETAL/RHEUMATOLOGICAL: Denies any joint pain, swelling, or any muscle pain. ENDOCRINE: Denies any polyuria or polydipsia. The rest of the 14-point review of systems is negative. PHYSICAL EXAMINATION: GENERAL: The patient is alert and oriented x3, not in any acute distress. Well developed, well nourished. HEENT: Pupils are round and equally reacting to light. EOMI. No scleral icterus. No conjunctival pallor. Normocephalic, atraumatic. No pharyngeal erythema. No thyromegaly. CARDIOVASCULAR: S1 and S2 present. No murmurs, rubs, or gallops. PULMONARY: Chest is clear to auscultation, no wheezing or crackles. ABDOMEN: Distended, nontender, bowel sounds not audible.. No palpable organomegaly. MUSCULOSKELETAL: No joint swelling or deformity. EXTREMITIES: No cyanosis, clubbing, or pedal edema. NEUROLOGICAL: Gross neurological examination did not reveal any focal deficits. SKIN: No rashes. Assessment and plan Intussusception of SMALL bowel Leukocytosis Abdominal pain Monitor vital signs Monitor CBC Monitor CMP Keep patient nothing by mouth NG tube ordered by surgery Monitor electrolytes Continue bowel rest Continue IV fluids Continue antiemetics Serial abdominal exams Resume home meds Gen. surgery consulted Labs and medication were reviewed.. Continue same treatment. Continue with symptomatic treatment. Resume home medication. Monitor labs and vitals. DVT and GI prophylaxis. Further recommendations as per clinical course of the patient Dictation was produced using [employer] dictation software. please excuse any grammatical, word or spelling errors. Past Medical History Past Medical History: GERD/Reflux Additional Past Medical History / Comment(s): colon polyps History of Any Multi-Drug Resistant Organisms: MRSA Year Discovered:: 2015 MDRO Source:: rt leg Past Surgical History: Tonsillectomy Additional Past Surgical History / Comment(s): surgery to finger, COLONOSCOPY X2 Past Anesthesia/Blood Transfusion Reactions: Motion Sickness Past Psychological History: No Psychological Hx Reported Smoking Status: Never smoker Past Alcohol Use History: Occasional Past Drug Use History: None Reported - Past Family History Brother(s) Family Medical History: Cancer Additional Family Medical History / Comment(s): melanoma on face Medications and Allergies Home Medications Medication Instructions Recorded Confirmed Type Omeprazole [PriLOSEC] 20 mg PO DAILY 01/21/21 02/19/23 History Cetirizine HCl [Zyrtec] 10 mg PO DAILY 02/19/23 02/19/23 History Magnesium 500 mg PO HS 02/19/23 02/19/23 History Allergies Allergy/AdvReac Type Severity Reaction Status Date / Time Penicillins Allergy Rash/Hives Verified 02/19/23 08:03 Physical Exam Vitals: Vital Signs Temp Pulse Resp BP Pulse Ox 02/19/23 07:26 98.5 F 90 18 142/81 94 L 02/19/23 06:19 97.4 F L 74 18 131/74 100 02/19/23 02:00 134/78 02/19/23 01:00 147/90 02/19/23 00:00 151/87 02/18/23 22:26 96 02/18/23 22:00 79 18 140/85 99 02/18/23 21:00 88 18 152/86 98 02/18/23 20:26 99 02/18/23 19:04 98.4 F 102 H 20 149/87 99 Intake and Output 02/18/23 02/19/23 02/19/23 22:59 06:59 14:59 Other: Weight 83.915 kg Results CBC & Chem 7: 02/18/23 21:15 02/18/23 21:15 Labs: Abnormal Lab Results - Last 24 Hours (Table) 02/18/23 02/18/23 02/18/23 Range/Units 21:15 21:15 21:15 WBC 13.0 H (3.8-10.6) k/uL Neutrophils # 10.6 H (1.3-7.7) k/uL Sodium 136 L (137-145) mmol/L Glucose 118 H (74-99) mg/dL Urine Protein Trace H (Negative) Urine Ketones 1+ H (Negative)
[2023-02-19 11:39] LABS: Basophils % (A) 0 %; Eosinophils % (A) 0 %; HCT 38.5 % (39.0-53.0); HGB 12.6 gm/dL (13.0-17.5); Hypochromasia Slight; Lymphocytes # (A) 1.2 k/uL (1.0-4.8); Lymphocytes % (A) 12 %; MCH 28.6 pg (25.0-35.0); MCHC 32.7 g/dL (31.0-37.0); MCV 87.4 fL (80.0-100.0); Mean Platelet Volume 6.8; Monocytes # (A) 0.7 k/uL (0-1.0); Monocytes % (A) 7 %; Neutrophils # (A) 8.1 k/uL (1.3-7.7); Neutrophils % (A) 79 %; Platelet Count 378 k/uL (150-450); RBC 4.41 m/uL (4.30-5.90); RDW 13.3 % (11.5-15.5); WBC 10.2 k/uL (3.8-10.6)
[2023-02-19 11:54] LABS: ALT 16 U/L (4-49); AST 17 U/L (17-59); African American GFR (CKD) >90 (>60 ml/min/1.73 sqM); Albumin 3.6 g/dL (3.5-5.0); Albumin/Globulin Ratio 1.2; Alkaline Phosphatase 74 U/L (38-126); Anion Gap 9 mmol/L; Blood Urea Nitrogen 17 mg/dL (9-20); Calcium 8.8 mg/dL (8.4-10.2); Carbon Dioxide 27 mmol/L (22-30); Chloride 101 mmol/L (98-107); Globulin 2.9 g/dL; Glucose 114 mg/dL (74-99); Non-African American GFR(CKD) 80 (>60 ml/min/1.73 sqM); Potassium 4.3 mmol/L (3.5-5.1); Sodium 137 mmol/L (137-145); Total Bilirubin 0.6 mg/dL (0.2-1.3); Total Protein 6.5 g/dL (6.3-8.2)
[2023-02-20] MEDS: HYDROmorphone 1 MG/ML 1 ML SYRINGE IVP PRN ×6 (01:31→21:35)
[2023-02-20] MEDS: METOCLOPRAMIDE 5 MG/ML 2 ML VIAL IVP PRN ×2 (01:32→20:17)
[2023-02-20] MEDS: SODIUM CHLORIDE 0.9% 1,000 ML IV SCH ×3 (05:58→21:38)
--- NOTE | 2023-02-20 07:37 | P.PN ---
Progress Note - Text Progress Note Date: 02/20/23 Patient feels better today. He has had some flatus. His abdominal pain is decreased. On exam vital signs are stable. Abdomen soft. Status post small bowel obstruction with intussusception. Patient will have a repeat computed tomography scan to see if this is reduced spontaneously. The patient will start full liquid diet.
[2023-02-20] MEDS: LORATADINE 10 MG TAB PO SCH (08:33)
[2023-02-20] MEDS: IOPAMIDOL CONTRAST (ORAL USE) VIAL PO PRN ×2 (08:33→09:37)
[2023-02-20 09:37] LABS: Basophils # (A) 0.02 X 10*3/uL (0.00-0.10); Basophils % (A) 0.3 %; Eosinophils # (A) 0.01 X 10*3/uL (0.04-0.35); Eosinophils % (A) 0.1 %; HCT 36.3 % (39.6-50.0); HGB 11.6 g/dL (13.0-17.0); Lymphocytes # (A) 1.09 X 10*3/uL (0.90-5.00); Lymphocytes % (A) 14.6 %; MCH 27.2 pg (27.0-32.0); MCV 85.2 FL (80.0-97.0); Mean Platelet Volume 9.3 FL (9.5-12.2); NRBC Per 100 WBC 0 X 10*3/uL (0.00-0.01); Neutrophils # (A) 5.15 X 10*3/uL (1.80-7.70); Neutrophils % (A) 68.9 %; Platelet Count 368 X 10*3/uL (140-440); RBC 4.26 X 10*6/uL (4.40-5.60); WBC 7.48 X 10*3/uL (4.50-10.00)
[2023-02-20 09:53] LABS: BUN/Creat Ratio 22.38 Ratio (12.00-20.00); Blood Urea Nitrogen 17.9 mg/dL (9.0-27.0); Glucose 118 mg/dL (70-110)
[2023-02-20 09:54] LABS: ALT 12 U/L (10-49); AST 10 U/L (14-35); Albumin 3.3 g/dL (3.8-4.9); Albumin/Globulin Ratio 1.43 Ratio (1.60-3.17); Alkaline Phosphatase 64 U/L (41-126); Calcium 8.6 mg/dL (8.7-10.3); Carbon Dioxide 25.4 mmol/L (21.6-31.8); Chloride 103 mmol/L (96-109); Globulin 2.3 g/dL (1.6-3.3); Potassium 4.1 mmol/L (3.5-5.5); Sodium 137 mmol/L (135-145); Total Bilirubin 0.3 mg/dL (0.3-1.2); Total Protein 5.6 g/dL (6.2-8.2)
--- NOTE | 2023-02-20 10:34 | CT ---
EXAMINATION TYPE: CT abdomen pelvis w con DATE OF EXAM: 02/20/2023 COMPARISON: 02/18/2023 HISTORY: Small bowel obstruction with intussusception CT DLP: 1067.1 mGycm CONTRAST: CT scan of the abdomen and pelvis is performed with Oral Contrast and with IV Contrast, patient injec capo with 100 mL of Isovue 300. FINDINGS: LUNG BASES-: No visible nodule. No infiltrate. LIVER/GB: No calcified gallstones. No space occupying hepatic lesion. Biliary tree is of normal ca liber. PANCREAS: No inflammation. No distinct mass. SPLEEN: No splenic enlargement. No lesion seen. ADRENALS: No nodule. No thickening. KIDNEYS/BLADDER: No hydronephrosis. No nephrolithiasis. No distinct renal mass. Urinary bladder g rossly unremarkable. BOWEL: Persistent enterocolonic intussusception with dilated proximal small bowel measuring up to 3.4 cm essentially unchanged from prior study. No evidence of perforation or free air. No abscess apprec iated. Intracolonic lipoma is noted measuring 2.1 cm which may reflect lead point. GENITAL ORGANS: No gross abnormality. LYMPH NODES: No greater than 1cm abdominal or pelvic lymph nodes are appreciated. AORTA: No significant abnormality. OSSEOUS STRUCTURES: No significant abnormality is seen. OTHER: Small amount of ascites is noted. IMPRESSION: 1. Stable enterocolonic intussusception with probable lipoma lead point. Proximal small bowel dilatat ion felt to reflect stable obstruction measuring up to 3.4 cm. Mild edema of the small bowel mesenter y.
[2023-02-20 11:10] VITALS: BMI 25.0
[2023-02-20] MEDS: KETOROLAC 15 MG/ML 1 ML VIAL IVP PRN ×2 (11:40→20:25)
--- NOTE | 2023-02-20 13:24 | P.PN ---
Subjective Progress Note Date: 02/20/23 patient is 62-year-old gentleman with past medical history significant for GERD who presented to the ER because of abdominal pain for 2 days. Patient states that he was all right yesterday morning when he started developing abdominal pain which was located in epigastric region, sharp in nature, associated with nausea and vomiting. Initially pain was mild but gradually increased in i ntensity and became cramping in nature. Denied any altered bowel movements. No complaint of blood in stools. No complaint of prior constipation. There was no complain of any fever or chills. Patient denied any recent eating out in restaurants. No sick contacts in the family. There was no complain of any urinary complaints. Because of these symptoms, patient came to the ER Initial lab work done in the ER showed WBC 13, hemoglobin 13.1, platelet count 385, sodium 1:30, potassium 4, BUN 13, creatinine 0.91, glucose 118, lactate 1.6, AST 18, ALT 20, UA negative for infection CT abdominal pelvis done showed approximately 7-8 cm long segment of small bowel and right colon intussusception there appears to be a 2 cm fat density at the lead point. Patient admitted to general surgery. Medicine team was consulted for medical management 02/20. Patient seen and examined. Still not passing any gas. States he is burping. Still abdominal is distended. Stated the pain has improved. Denies any nausea vomiting REVIEW OF SYSTEMS: CONSTITUTIONAL: No fever, no malaise,. CARDIOVASCULAR: No chest pain, no palpitations, no syncope. PULMONARY: No shortness of breath, no cough, GASTROINTESTINAL: As mentioned above NEUROLOGICAL: No headaches, no weakness, PHYSICAL EXAMINATION: GENERAL: The patient is alert and oriented x3, looks in acute distress HEENT: Pupils are round and equally reacting to light. EOMI. No scleral icterus. No conjunctival pallor. Normocephalic, atraumatic. No pharyngeal erythema. No thyromegaly. CARDIOVASCULAR: S1 and S2 present. No murmurs, rubs, or gallops. PULMONARY: Chest is clear to auscultation, no wheezing or crackles. ABDOMEN: Distended, no tenderness, bowel sounds are not audible. No palpable organomegaly. MUSCULOSKELETAL: No joint swelling or deformity. EXTREMITIES: No cyanosis, clubbing, or pedal edema. NEUROLOGICAL: Gross neurological examination did not reveal any focal deficits. SKIN: No rashes. Assessment and plan Intussusception of SMALL bowel Leukocytosis Abdominal pain Monitor vital signs Monitor CBC Monitor CMP Monitor electrolytes Continue IV fluids Continue antiemetics Serial abdominal exams CT abdominal pelvis ordered Surgery following, started on clear liquid diet, advance diet per surgery Labs and medication were reviewed.. Continue same treatment. Continue with symptomatic treatment. Resume home medication. Monitor labs and vitals. DVT and GI prophylaxis. Further recommendations as per clinical course of the patient Dictation was produced using [employer] dictation software. please excuse any grammatical, word or spelling errors. Objective - Vital Signs Vital signs: Vital Signs Temp 97.6 F 02/20/23 07:29 Pulse 81 02/20/23 07:29 Resp 17 02/20/23 07:29 BP 150/76 02/20/23 07:29 Pulse Ox 94 L 02/20/23 07:29 FiO2 Intake & Output 02/19/23 02/20/23 02/20/23 18:59 06:59 18:59 Intake Total 1200 Balance 1200 Weight 83.915 kg Intake: Intake, IV Titration 1200 Amount Sodium Chloride 0.9% 1, 1200 000 ml @ 100 mls/hr IV . Q10H SAMUEL Rx#:[id number] Other: # Voids 1 3 - Labs CBC & Chem 7: 02/20/23 07:07 02/20/23 07:07 Labs: Abnormal Lab Results - Last 24 Hours (Table) 02/19/23 02/19/23 Range/Units 10:48 10:48 Hgb 12.6 L (13.0-17.5) gm/dL Hct 38.5 L (39.0-53.0) % Neutrophils # 8.1 H (1.3-7.7) k/uL Glucose 114 H (74-99) mg/dL
[2023-02-20] MEDS: ONDANSETRON 4 MG/2 ML VIAL IVP PRN (13:45)
[2023-02-21] MEDS: HYDROmorphone 1 MG/ML 1 ML SYRINGE IVP PRN ×7 (00:28→20:48)
[2023-02-21] MEDS: ONDANSETRON 4 MG/2 ML VIAL IVP PRN ×3 (02:34→20:47)
[2023-02-21] MEDS: KETOROLAC 15 MG/ML 1 ML VIAL IVP PRN ×4 (06:01→23:41)
[2023-02-21] MEDS: METOCLOPRAMIDE 5 MG/ML 2 ML VIAL IVP PRN ×3 (06:02→23:41)
[2023-02-21] MEDS: SODIUM CHLORIDE 0.9% 1,000 ML IV SCH ×2 (06:06→20:48)
[2023-02-21] MEDS: LORATADINE 10 MG TAB PO SCH (10:10)
--- NOTE | 2023-02-21 11:38 | P.PN ---
Progress Note - Text Progress Note Date: 02/21/23 patient still has complaints of some crampy abdominal pain. He denies any nausea or vomiting. His computed tomography scan was reviewed. Patient appears to have intussusception with a possible polyp or lipomas a lead point. On exam vital signs appear stable. Abdomen soft. There is minimal distention. There is no significant tenderness on deep palpation. Small obstruction related to intussusception. Patient be scheduled for ileocolectomy in the a.m. Patient is refusing a nasogastric tube at this time.
[2023-02-21 11:50] LABS: Basophils % (A) 0 %; Eosinophils % (A) 0 %; HCT 38.3 % (39.0-53.0); HGB 12.4 gm/dL (13.0-17.5); Hypochromasia Slight; Lymphocytes # (A) 0.9 k/uL (1.0-4.8); Lymphocytes % (A) 13 %; MCH 27.8 pg (25.0-35.0); MCHC 32.4 g/dL (31.0-37.0); MCV 85.7 fL (80.0-100.0); Mean Platelet Volume 7.3; Monocytes # (A) 0.8 k/uL (0-1.0); Monocytes % (A) 11 %; Neutrophils # (A) 4.8 k/uL (1.3-7.7); Neutrophils % (A) 72 %; Platelet Count 349 k/uL (150-450); RBC 4.47 m/uL (4.30-5.90); RDW 13.2 % (11.5-15.5); WBC 6.6 k/uL (3.8-10.6)
[2023-02-21 12:20] LABS: ALT 15 U/L (4-49); AST 17 U/L (17-59); African American GFR (CKD) >90 (>60 ml/min/1.73 sqM); Albumin 3.4 g/dL (3.5-5.0); Albumin/Globulin Ratio 1.3; Alkaline Phosphatase 62 U/L (38-126); Anion Gap 10 mmol/L; Blood Urea Nitrogen 26 mg/dL (9-20); Calcium 8.5 mg/dL (8.4-10.2); Carbon Dioxide 26 mmol/L (22-30); Chloride 100 mmol/L (98-107); Globulin 2.7 g/dL; Glucose 113 mg/dL (74-99); Non-African American GFR(CKD) >90 (>60 ml/min/1.73 sqM); Sodium 136 mmol/L (137-145); Total Bilirubin 0.5 mg/dL (0.2-1.3); Total Protein 6.1 g/dL (6.3-8.2)
--- NOTE | 2023-02-21 12:56 | P.PN ---
Subjective Progress Note Date: 02/21/23 patient is 62-year-old gentleman with past medical history significant for GERD who presented to the ER because of abdominal pain for 2 days. Patient states that he was all right yesterday morning when he started developing abdominal pain which was located in epigastric region, sharp in nature, associated with nausea and vomiting. Initially pain was mild but gradually increased in i ntensity and became cramping in nature. Denied any altered bowel movements. No complaint of blood in stools. No complaint of prior constipation. There was no complain of any fever or chills. Patient denied any recent eating out in restaurants. No sick contacts in the family. There was no complain of any urinary complaints. Because of these symptoms, patient came to the ER Initial lab work done in the ER showed WBC 13, hemoglobin 13.1, platelet count 385, sodium 1:30, potassium 4, BUN 13, creatinine 0.91, glucose 118, lactate 1.6, AST 18, ALT 20, UA negative for infection CT abdominal pelvis done showed approximately 7-8 cm long segment of small bowel and right colon intussusception there appears to be a 2 cm fat density at the lead point. Patient admitted to general surgery. Medicine team was consulted for medical management 02/20. Patient seen and examined. Still not passing any gas. States he is burping. Still abdominal is distended. Stated the pain has improved. Denies any nausea vomiting 02/21. Patient seen and examined. Still complaining of abdominal distention, is not passing any gas. Repeat computed tomography scan was reviewed by surgery, planning ileoColectomy in the morning REVIEW OF SYSTEMS: CONSTITUTIONAL: No fever, no malaise,. CARDIOVASCULAR: No chest pain, no palpitations, no syncope. PULMONARY: No shortness of breath, no cough, GASTROINTESTINAL: As mentioned above NEUROLOGICAL: No headaches, no weakness, PHYSICAL EXAMINATION: GENERAL: The patient is alert and oriented x3, looks in acute distress HEENT: Pupils are round and equally reacting to light. EOMI. No scleral icterus. No conjunctival pallor. Normocephalic, atraumatic. No pharyngeal erythema. No thyromegaly. CARDIOVASCULAR: S1 and S2 present. No murmurs, rubs, or gallops. PULMONARY: Chest is clear to auscultation, no wheezing or crackles. ABDOMEN: Distended, no tenderness, bowel sounds are not audible. No palpable organomegaly. MUSCULOSKELETAL: No joint swelling or deformity. EXTREMITIES: No cyanosis, clubbing, or pedal edema. NEUROLOGICAL: Gross neurological examination did not reveal any focal deficits. SKIN: No rashes. Assessment and plan Intussusception of SMALL bowel Leukocytosis Abdominal pain Monitor vital signs Monitor CBC Monitor CMP Monitor electrolytes Continue IV fluids Continue antiemetics Serial abdominal exams CT abdominal pelvis showed stable intussusception Keep nothing by mouth Surgery following, Patient be scheduled for ileocolectomy in the a.m Labs and medication were reviewed.. Continue same treatment. Continue with symptomatic treatment. Resume home medication. Monitor labs and vitals. DVT and GI prophylaxis. Further recommendations as per clinical course of the patient Dictation was produced using [employer] dictation software. please excuse any g rammatical, word or spelling errors. Objective - Vital Signs Vital signs: Vital Signs Temp 99.4 F 02/21/23 07:00 Pulse 96 02/21/23 07:00 Resp 17 02/21/23 07:00 BP 132/80 02/21/23 07:00 Pulse Ox 95 02/21/23 07:00 FiO2 Intake & Output 02/20/23 02/21/23 02/21/23 18:59 06:59 18:59 Weight 83.915 kg Other: # Voids 2 3 - Labs CBC & Chem 7: 02/21/23 11:27 02/21/23 11:27
[2023-02-22] MEDS: HYDROmorphone 1 MG/ML 1 ML SYRINGE IVP PRN ×3 (02:09→08:48)
[2023-02-22 08:42] LABS: HCT 37.1 % (39.6-50.0); HGB 11.5 g/dL (13.0-17.0); MCV 87.1 FL (80.0-97.0); Mean Platelet Volume 9.5 FL (9.5-12.2); NRBC Per 100 WBC 0 X 10*3/uL (0.00-0.01); Platelet Count 379 X 10*3/uL (140-440); RBC 4.26 X 10*6/uL (4.40-5.60); WBC 6.28 X 10*3/uL (4.50-10.00)
[2023-02-22 08:52] LABS: ALT 11 U/L (10-49); AST 9 U/L (14-35); Albumin 3.3 g/dL (3.8-4.9); Albumin/Globulin Ratio 1.43 Ratio (1.60-3.17); Alkaline Phosphatase 60 U/L (41-126); BUN/Creat Ratio 26.89 Ratio (12.00-20.00); Blood Urea Nitrogen 24.2 mg/dL (9.0-27.0); Calcium 8.5 mg/dL (8.7-10.3); Carbon Dioxide 26.7 mmol/L (21.6-31.8); Chloride 106 mmol/L (96-109); Globulin 2.3 g/dL (1.6-3.3); Glucose 87 mg/dL (70-110); Potassium 3.8 mmol/L (3.5-5.5); Sodium 142 mmol/L (135-145); Total Bilirubin 0.3 mg/dL (0.3-1.2); Total Protein 5.6 g/dL (6.2-8.2)
[2023-02-22] MEDS ORDERED: LACTATED RINGERS 1,000 ML IV ONE (11:39)
[2023-02-22] MEDS ORDERED: MIDAZOLAM 2 MG/2 ML VIAL IVP ONE (11:47)
[2023-02-22] MEDS ORDERED: NALOXONE 0.4 MG/ML 1 ML VIAL IV PRN (12:10)
--- NOTE | 2023-02-22 12:10 | P.ANPRN ---
Procedure Note - Anesthesia - Epidural/Spinal Epidural Continuous Time Out Performed: Yes Date of Procedure: 02/22/23 Procedure Start Time: 11:46 Procedure Stop Time: 11:50 Location of Patient: PreOp Indication: Acute Post-Operative Pain, Requested by Surgeon Sedation Type: Sedate with meaningful contact maintained Preparation: Sterile Prep Number of Attempts: 1 Position: Sitting Catheter Depth at Skin (cm): 11 Catheter: Indwelling Needle Guage: 18 Injectate: Test dose -3ml of 1.5% Lidocaine +epi--No S/S. Blood Aspirated: No Pain Paresthesia on Injection Noted: No Events: Uneventful and Well Tolerated
[2023-02-22] MEDS: SODIUM CHLORIDE 0.9% 1,000 ML IV SCH ×2 (12:11→18:28)
[2023-02-22] MEDS: LORATADINE 10 MG TAB PO SCH (12:11)
--- NOTE | 2023-02-22 12:15 | P.PN ---
Subjective Progress Note Date: 02/22/23 CHIEF COMPLAINT: Small bowel obstruction HISTORY OF PRESENT ILLNESS: Patient continues to have crampy abdominal pain and abdominal distention. He refused NG tube placement. Denies any nausea or vomiting. No bowel activity. Afebrile. Vital stable. WBC 6.28 Hgb 11.5 platelets 379 sodium 142 potassium 3.8 creatinine 0.9 PHYSICAL EXAM: VITAL SIGNS: Reviewed. GENERAL: Well-developed in no acute distress. ABDOMEN: Distended. Diffuse tenderness. NEUROLOGIC: Alert and oriented. Cranial nerves II through XII grossly intact. ASSESSMENT: 1. Small bowel obstruction related to intussusception PLAN: -Patient scheduled for ileocolectomy today with Dr. Singer Physician Dispatcher [employer] note has been reviewed by physician. Signing provider agrees with the documented findings, assessment, and plan of care. Objective - Vital Signs Vital signs: Vital Signs Temp 98.7 F 02/22/23 07:13 Pulse 78 02/22/23 07:13 Resp 17 02/22/23 07:13 BP 148/81 02/22/23 07:13 Pulse Ox 93 L 02/22/23 07:13 FiO2 Intake & Output 02/21/23 02/22/23 02/22/23 18:59 06:59 18:59 Other: # Voids 2 - Labs CBC & Chem 7: 02/22/23 05:23 02/22/23 05:23 Labs: Abnormal Lab Results - Last 24 Hours (Table) 02/21/23 02/21/23 02/22/23 Range/Units 11: 11: 05:23 RBC 4.26 L (4.40-5.60) X 10*6/uL Hgb 12.4 L 11.5 L (13.0-17.5) gm/dL Hct 38.3 L 37.1 L (39.0-53.0) % MCHC 31.0 L (32.0-37.0) g/dL Lymphocytes # 0.9 L (1.0-4.8) k/uL Sodium 136 L (137-145) mmol/L BUN 26 H (9-20) mg/dL BUN/Creatinine Ratio (12.00-20.00) Ratio Glucose 113 H (74-99) mg/dL Calcium (8.7-10.3) mg/dL AST (14-35) U/L Total Protein 6.1 L (6.3-8.2) g/dL Albumin 3.4 L (3.5-5.0) g/dL Albumin/Globulin Ratio (1.60-3.17) Ratio 02/22/ Range/Units 05:23 RBC (4.40-5.60) X 10*6/uL Hgb (13.0-17.5) gm/dL Hct (39.0-53.0) % MCHC (32.0-37.0) g/dL Lymphocytes # (1.0-4.8) k/uL Sodium (137-145) mmol/L BUN (9-20) mg/dL BUN/Creatinine Ratio 26.89 H (12.00-20.00) Ratio Glucose (74-99) mg/dL Calcium 8.5 L (8.7-10.3) mg/dL AST 9 L (14-35) U/L Total Protein 5.6 L (6.3-8.2) g/dL Albumin 3.3 L (3.5-5.0) g/dL Albumin/Globulin Ratio 1.43 L (1.60-3.17) Ratio
[2023-02-22] MEDS ORDERED: diphenhydrAMINE 50 MG/ML 1 ML VIAL ONE (12:32)
[2023-02-22] MEDS ORDERED: ONDANSETRON 4 MG/2 ML VIAL IVP ONE (12:35)
[2023-02-22] MEDS ORDERED: diphenhydrAMINE 50 MG/ML 1 ML VIAL IVP ONE (12:36)
[2023-02-22] MEDS ORDERED: FAMOTIDINE 20 MG/2 ML VIAL IVP ONE (12:36)
[2023-02-22] MEDS ORDERED: DEXAMETHASONE SOD PHOSPHATE 4 MG/ML 1 ML VIAL IVP ONE (12:36)
[2023-02-22] MEDS ORDERED: PROPOFOL 10 MG/ML 20 ML VIAL IV ONE (13:41)
[2023-02-22] MEDS ORDERED: ROCURONIUM 10 MG/ML (5 ML VIAL) IV ONE (13:41)
[2023-02-22] MEDS ORDERED: LIDOCAINE 1% INJ 10MG/ML (20 ML MDV) ONE (13:41)
[2023-02-22] MEDS ORDERED: fentaNYL (PF) 50 MCG/ML 2 ML AMP ONE (13:41)
[2023-02-22] MEDS ORDERED: SUCCINYLCHOLINE CHLORIDE 200 MG/10 ML VIAL IV ONE (13:41)
[2023-02-22] MEDS ORDERED: MIDAZOLAM 2 MG/2 ML VIAL ONE (13:41)
[2023-02-22] MEDS ORDERED: GLYCOPYRROLATE 0.2 MG/ML 2 ML VIAL ONE (13:41)
[2023-02-22] MEDS ORDERED: NEOSTIGMINE 1 MG/ML 10 ML VIAL ONE (13:41)
--- NOTE | 2023-02-22 13:51 | P.PN ---
Subjective Progress Note Date: 02/22/23 patient is 62-year-old gentleman with past medical history significant for GERD who presented to the ER because of abdominal pain for 2 days. Patient states that he was all right yesterday morning when he started developing abdominal pain which was located in epigastric region, sharp in nature, associated with nausea and vomiting. Initially pain was mild but gradually increased in i ntensity and became cramping in nature. Denied any altered bowel movements. No complaint of blood in stools. No complaint of prior constipation. There was no complain of any fever or chills. Patient denied any recent eating out in restaurants. No sick contacts in the family. There was no complain of any urinary complaints. Because of these symptoms, patient came to the ER Initial lab work done in the ER showed WBC 13, hemoglobin 13.1, platelet count 385, sodium 1:30, potassium 4, BUN 13, creatinine 0.91, glucose 118, lactate 1.6, AST 18, ALT 20, UA negative for infection CT abdominal pelvis done showed approximately 7-8 cm long segment of small bowel and right colon intussusception there appears to be a 2 cm fat density at the lead point. Patient admitted to general surgery. Medicine team was consulted for medical management 02/20. Patient seen and examined. Still not passing any gas. States he is burping. Still abdominal is distended. Stated the pain has improved. Denies any nausea vomiting 02/21. Patient seen and examined. Still complaining of abdominal distention, is not passing any gas. Repeat computed tomography scan was reviewed by surgery, planning ileoColectomy in the morning 02/22. Patient seen and examined. Currently nothing by mouth, scheduled for surgery today. Still not passing gas and abdominal is distended. Vital signs to REVIEW OF SYSTEMS: CONSTITUTIONAL: No fever, no malaise,. CARDIOVASCULAR: No chest pain, no palpitations, no syncope. PULMONARY: No shortness of breath, no cough, GASTROINTESTINAL: As mentioned above NEUROLOGICAL: No headaches, no weakness, PHYSICAL EXAMINATION: GENERAL: The patient is alert and oriented x3, looks in acute distress HEENT: Pupils are round and equally reacting to light. EOMI. No scleral icterus. No conjunctival pallor. Normocephalic, atraumatic. No pharyngeal erythema. No thyromegaly. CARDIOVASCULAR: S1 and S2 present. No murmurs, rubs, or gallops. PULMONARY: Chest is clear to auscultation, no wheezing or crackles. ABDOMEN: Distended, no tenderness, bowel sounds are not audible. No palpable organomegaly. MUSCULOSKELETAL: No joint swelling or deformity. EXTREMITIES: No cyanosis, clubbing, or pedal edema. NEUROLOGICAL: Gross neurological examination did not reveal any focal deficits. SKIN: No rashes. Assessment and plan Intussusception of SMALL bowel Leukocytosis Abdominal pain Monitor vital signs Monitor CBC Monitor CMP Monitor electrolytes Continue IV fluids Continue antiemetics Serial abdominal exams CT abdominal pelvis showed stable intussusception Keep nothing by mouth Surgery following, scheduled for ileocolectomy today Labs and medication were reviewed.. Continue same treatment. Continue with symptomatic treatment. Resume home medication. Monitor labs and vitals. DVT and GI prophylaxis. Further recommendations as per clinical course of the patient Dictation was produced using [employer] dictation software. please excuse any grammatical, word or spelling errors. Objective - Vital Signs Vital signs: Vital Signs Temp 98.9 F 02/22/23 11:40 Pulse 94 02/22/23 12:08 Resp 20 02/22/23 12:08 BP 142/77 02/22/23 12:08 Pulse Ox 96 02/22/23 12:08 FiO2 Intake & Output 02/21/23 02/22/23 02/22/23 18:59 06:59 18:59 Intake Total 500 Balance 500 Intake: IV 500 Other: # Voids 2 - Labs CBC & Chem 7: 02/22/23 05:23 02/22/23 05:23 Labs: Abnormal Lab Results - Last 24 Hours (Table) 02/22/23 02/22/23 Range/Units 05:23 05:23 RBC 4.26 L (4.40-5.60) X 10*6/uL Hgb 11.5 L (13.0-17.0) g/dL Hct 37.1 L (39.6-50.0) % MCHC 31.0 L (32.0-37.0) g/dL BUN/Creatinine Ratio 26.89 H (12.00-20.00) Ratio Calcium 8.5 L (8.7-10.3) mg/dL AST 9 L (14-35) U/L Total Protein 5.6 L (6.2-8.2) g/dL Albumin 3.3 L (3.8-4.9) g/dL Albumin/Globulin Ratio 1.43 L (1.60-3.17) Ratio
[2023-02-22] MEDS ORDERED: ONDANSETRON 4 MG/2 ML VIAL IVP PRN (14:41)
[2023-02-22] MEDS ORDERED: METOCLOPRAMIDE 5 MG/ML 2 ML VIAL IVP PRN (14:41)
[2023-02-22] MEDS ORDERED: BENZOCAINE/MENTHOL LOZENG 1 EACH LOZENGE MUCOUS MEM PRN (14:41)
--- NOTE | 2023-02-22 14:41 | P.OP ---
Date of Procedure: 02/22/23 Preoperative Diagnosis: Small bowel obstruction Postoperative Diagnosis: Small bowel obstruction secondary to intussusception Procedure(s) Performed: Ileocolectomy Anesthesia: CASSANDRA Surgeon: Ebenezer Singer Estimated Blood Loss (ml): 25 Pathology: other (Ileocolectomy) Condition: stable Disposition: PACU Description of Procedure: The patient's placed on the operative table in the supine position. He received general endotracheal tube anesthesia. His abdomen was prepped and draped usual fashion. The abdomen was entered through a midline incision. Upon entering the abdomen there was noted to be dilated small bowel. Small bowel was run from the ligament of Treitz to our the right lower quadrant at the terminal ileum there was a dissection of the small bowel into the cecum. Several times made to reduce the intussusception. However this was not possible to the edema of the bowel. This point decided to perform a limited bowel resection. The bowel was transected proximally distally with the PAULETTE stapler. The terminal ileum was transected just before the intussusception. And then the cecum was transected with the linear stapler. A [id number] functional end-to-end stapled vessels and created using the PAULETTE and TA stapler. 3-0 GI silk sutures using a crotch s titch. The window in the mesentery was closed with 3-0 GI silk suture. The abdomen was irrigated there is no bleeding seen. The fascia was then closed in looped #1 PDS suture. Skin was closed kitty. Patient top she will he was sent to recovery room in stable condition.
[2023-02-22] MEDS ORDERED: BENZOCAINE SPRAY 1 CAN MUCOUS MEM PRN (15:47)
[2023-02-22] MEDS: ROPIVACAINE 250 MG, HYDROMORPHONE (PF) 5 MG in SODIUM CHLORIDE 0.9% 200 ML EPIDURAL PRN (16:05)
[2023-02-22] MEDS: MORPHINE SULFATE 4 MG/ML SYRINGE IVP PRN ×2 (16:32→20:46)
[2023-02-22] MEDS: HEPARIN SODIUM,PORCINE 5,000 UNIT/ML 1 ML VIAL SQ SCH ×2 (18:00→23:53)
[2023-02-22] MEDS: FAMOTIDINE 20 MG/2 ML VIAL IV SCH (20:46)
[2023-02-22] MEDS ORDERED: SODIUM CHLORIDE 0.9% 1,000 ML IV ONE (22:53)
[2023-02-23 02:16] LABS: Basophils # (A) 0.01 X 10*3/uL (0.00-0.10); Basophils % (A) 0.4 %; Eosinophils # (A) 0 X 10*3/uL (0.04-0.35); Eosinophils % (A) 0 %; HCT 37.8 % (39.6-50.0); HGB 11.9 g/dL (13.0-17.0); Lymphocytes % (A) 15.9 %; MCH 27.1 pg (27.0-32.0); MCHC 31.5 g/dL (32.0-37.0); MCV 86.1 FL (80.0-97.0); Monocytes # (A) 0.26 X 10*3/uL (0.20-1.00); Monocytes % (A) 10.3 %; NRBC Per 100 WBC 0 X 10*3/uL (0.00-0.01); Neutrophils # (A) 1.84 X 10*3/uL (1.80-7.70); Platelet Count 360 X 10*3/uL (140-440); RBC 4.39 X 10*6/uL (4.40-5.60); RDW 12.9 % (11.5-14.5); WBC 2.52 X 10*3/uL (4.50-10.00)
[2023-02-23 02:30] LABS: BUN/Creat Ratio 26.12 Ratio (12.00-20.00); Blood Urea Nitrogen 20.9 mg/dL (9.0-27.0); Calcium 8.1 mg/dL (8.7-10.3); Carbon Dioxide 22.7 mmol/L (21.6-31.8); Chloride 104 mmol/L (96-109); Glucose 115 mg/dL (70-110); Potassium 3.8 mmol/L (3.5-5.5); Sodium 138 mmol/L (135-145)
[2023-02-23] MEDS: SODIUM CHLORIDE 0.9% 1,000 ML IV SCH ×3 (04:01→23:24)
[2023-02-23] MEDS: ROPIVACAINE 250 MG, HYDROMORPHONE (PF) 5 MG in SODIUM CHLORIDE 0.9% 200 ML EPIDURAL PRN (06:13)
[2023-02-23] MEDS: LORATADINE 10 MG TAB PO SCH (08:43)
[2023-02-23] MEDS: FAMOTIDINE 20 MG/2 ML VIAL IV SCH ×2 (08:59→21:35)
[2023-02-23] MEDS: HEPARIN SODIUM,PORCINE 5,000 UNIT/ML 1 ML VIAL SQ SCH ×3 (08:59→23:35)
[2023-02-23] MEDS: ALVIMOPAN 12 MG CAPSULE PO SCH ×2 (08:59→21:35)
[2023-02-23 09:58] LABS: Basophils % (A) 0 %; Eosinophils # (A) 0.1 k/uL (0-0.7); Eosinophils % (A) 0 %; HCT 36.3 % (39.0-53.0); Hypochromasia Slight; Lymphocytes % (A) 8 %; MCH 28.3 pg (25.0-35.0); MCV 85.9 fL (80.0-100.0); Mean Platelet Volume 7.1; Monocytes # (A) 0.9 k/uL (0-1.0); Monocytes % (A) 7 %; Neutrophils # (A) 11.1 k/uL (1.3-7.7); Neutrophils % (A) 83 %; Platelet Count 382 k/uL (150-450); RBC 4.23 m/uL (4.30-5.90); RDW 13.3 % (11.5-15.5); WBC 13.3 k/uL (3.8-10.6)
[2023-02-23 10:15] LABS: African American GFR (CKD) >90 (>60 ml/min/1.73 sqM); Anion Gap 8 mmol/L; Blood Urea Nitrogen 25 mg/dL (9-20); Calcium 7.9 mg/dL (8.4-10.2); Carbon Dioxide 24 mmol/L (22-30); Chloride 105 mmol/L (98-107); Glucose 101 mg/dL (74-99); Non-African American GFR(CKD) 84 (>60 ml/min/1.73 sqM); Potassium 3.8 mmol/L (3.5-5.1); Sodium 137 mmol/L (137-145)
[2023-02-23] MEDS: HYDROmorphone 1 MG/ML 1 ML SYRINGE IVP PRN ×2 (10:30→17:26)
--- NOTE | 2023-02-23 10:40 | XR ---
EXAMINATION TYPE: XR chest 1V portable DATE OF EXAM: 02/23/2023 COMPARISON: NONE HISTORY: Shortness of breath TECHNIQUE: Single frontal view of the chest is obtained. FINDINGS: NG tube appears in good position. Surgical kitty in the abdomen dilated bowel loops. The lateral subsegment areas of consolidation. Limited inspiration with no pneumothorax or pleural effus ion. No overt failure. Heart size normal. IMPRESSION: 1. Basilar atelectasis favored over pneumonia correlate clinically. 2. Dilated small bowel loops correlate for obstruction.
--- NOTE | 2023-02-23 11:08 | P.PN ---
Subjective Progress Note Date: 02/23/23 CHIEF COMPLAINT: Small bowel obstruction HISTORY OF PRESENT ILLNESS: Patient postop day #1 status post ileocolectomy for small bowel obstruction secondary to intussusception. Patient has epidural in place. He reports that his pain is not controlled with the epidural. Last night patient refused to have the epidural hold for different pain medication. At this time he is agreeable to have the epidural pulled. Patient complaining of sore throat from the NG tube. Denies any flatus. Afebrile. Tachycardic. WBC elevated at 13.3 hgb 12 platelets 382 creatinine 0.97 chest x-ray basilar atelectasis favored over pneumonia. Dilated small bowel loops correlate for obstruction. Patient did get IV fluid bolus last night PHYSICAL EXAM: VITAL SIGNS: Reviewed. GENERAL: Well-developed in no acute distress. ABDOMEN: Softer. Less distended. Prevana wound VAC intact. NEUROLOGIC: Alert and oriented. Cranial nerves II through XII grossly intact. ASSESSMENT: 1. Small bowel obstruction secondary to intussusception status post ileocolectomy PLAN: -Discontinue the epidural since patient's pain is uncontrolled -Start IV Dilaudid 1 mg IV every 3 hours -Increase IV fluids 125 mL per hour -Continue NG tube for decompression -Keep patient nothing by mouth -Encouraged patient to increase activity level -Encouraged patient to use incentive spirometer -Encouraged patient to use ice packs as needed -Continue Entereg -GI prophylaxis Pepcid and DVT prophylaxis subcu heparin Physician Repairer Controller Tester note has been reviewed by physician. Signing provider agrees with the documented findings, assessment, and plan of care. Objective - Vital Signs Vital signs: Vital Signs Temp 98.5 F 02/23/23 07:08 Pulse 110 H 02/23/23 07:08 Resp 17 02/23/23 07:08 BP 122/72 02/23/23 07:08 Pulse Ox 93 L 02/23/23 07:08 FiO2 Intake & Output 02/22/23 02/23/23 02/23/23 18:59 06:59 18:59 Intake Total 800 197.867 Output Total 250 725 Balance 550 -527.133 Intake: IV 800 Intake, IV Titration 197.867 Amount Ropivacaine 250 mg 197.867 Hydromorphone (Pf) 5 mg In Sodium Chloride 0.9% 200 ml @ Per Protocol EPIDURAL .Q0M PRN Rx#: [id number] Output: Urine 200 725 Estimated Blood Loss 50 Other: Voiding Method Indwelling Catheter - Labs CBC & Chem 7: 02/23/23 09:40 02/23/23 09:40 Labs: Abnormal Lab Results - Last 24 Hours (Table) 02/22/23 02/22/23 Range/Units 16:58 16:58 WBC 2.52 L (4.50-10.00) X 10*3/uL RBC 4.39 L (4.40-5.60) X 10*6/uL Hgb 11.9 L (13.0-17.0) g/dL Hct 37.8 L (39.6-50.0) % MCHC 31.5 L (32.0-37.0) g/dL MPV 9.0 L (9.5-12.2) FL Lymphocytes # 0.40 L (0.90-5.00) X 10*3/uL Eosinophils # 0 L (0.04-0.35) X 10*3/uL BUN/Creatinine Ratio 26.12 H (12.00-20.00) Ratio Glucose 115 H (70-110) mg/dL Calcium 8.1 L (8.7-10.3) mg/dL
[2023-02-23] MEDS: LEVOFLOXACIN 500MG-D5W PMX 500 MG in DEXTROSE/WATER 1 100ML.BAG IVPB SCH (12:37)
--- NOTE | 2023-02-23 15:59 | P.PN ---
Subjective Progress Note Date: 02/23/23 patient is 62-year-old gentleman with past medical history significant for GERD who presented to the ER because of abdominal pain for 2 days. Patient states that he was all right yesterday morning when he started developing abdominal pain which was located in epigastric region, sharp in nature, associated with nausea and vomiting. Initially pain was mild but gradually increased in intensity and became cramping in nature. Denied any altered bowel movements. No complaint of blood in stools. No complaint of prior constipation. There was no complain of any fever or chills. Patient denied any recent eating out in restaurants. No sick contacts in the family. There was no complain of any urinary complaints. Because of these symptoms, patient came to the ER Initial lab work done in the ER showed WBC 13, hemoglobin 13.1, platelet count 385, sodium 1:30, potassium 4, BUN 13, creatinine 0.91, glucose 118, lactate 1.6, AST 18, ALT 20, UA negative for infection CT abdominal pelvis done showed approximately 7-8 cm long segment of small bowel and right colon intussusception there appears to be a 2 cm fat density at the lead point. Patient admitted to general surgery. Medicine team was consulted for medical management 02/20. Patient seen and examined. Still not passing any gas. States he is burping. Still abdominal is distended. Stated the pain has improved. Denies any nausea vomiting 02/21. Patient seen and examined. Still complaining of abdominal distention, is not passing any gas. Repeat computed tomography scan was reviewed by surgery, planning ileoColectomy in the morning 02/22. Patient seen and examined. Currently nothing by mouth, scheduled for surgery today. Still not passing gas and abdominal is distended. 02/23/2023 Patient is seen and evaluated in follow-up this morning status post ileocolectomy secondary to bowel obstruction with intussusception. Patient is continued on antibiotics in the form of Levaquin per surgery and appears to be slightly dry being maintained on normal saline at 125 an hour. Epidural pain pump scheduled to be discontinued and patient will be on IV push Dilaudid as needed. Currently nothing by mouth and reports to having small flat is with no bowel activity as of yet. Recommend small sips of water and ice chips sparingly per surgery recommendations. Patient is tachycardic on exam and reports has been an EKG obtained showing sinus tachycardia with a heart rate of 1 19 bpm. Patient also showing some lowered pulse ox readings with 90% on 2 L and does not normally wear oxygen and obtain chest x-ray which showed basilar atelectasis and strongly encouraged the patient to use incentive spirometer at least 10 times every hour while awake. Recommend PT/OT therapy and getting up out of the bed. White count slightly elevated, possibly reactive at 13.3 and repeat CBC is ordered for a.m. Patient is currently afebrile with no reports of chest pain or shortness of breath. Patient asking if he can have something to eat. Per surgery nothing by mouth except ice chips and sips of water. REVIEW OF SYSTEMS: CONSTITUTIONAL: No fever, no malaise,. CARDIOVASCULAR: No chest pain, no palpitations, no syncope. PULMONARY: No shortness of breath, no cough, GASTROINTESTINAL: As mentioned above NEUROLOGICAL: No headaches, reports of generalized weakness, PHYSICAL EXAMINATION: GENERAL: The patient is alert and oriented x3, thin built, appears older than stated age, well-developed HEENT: Pupils are round and equally reacting to light. EOMI. No scleral icterus. No conjunctival pallor. Normocephalic, atraumatic. No pharyngeal erythema. No thyromegaly. CARDIOVASCULAR: S1 and S2 present. No murmurs, rubs, or gallops. Tachycardic PULMONARY: Chest is clear to auscultation, no wheezing or crackles. ABDOMEN: Distended, no tenderness, bowel sounds are not audible. No palpable organomegaly. MUSCULOSKELETAL: No joint swelling or deformity. EXTREMITIES: No cyanosis, clubbing, or pedal edema. NEUROLOGICAL: Gross neurological examination did not reveal any focal deficits. Diffusely weak SKIN: No rashes. Assessment: Intussusception of small bowel status post ileocolectomy Leukocytosis, secondary to above, possibly reactive Abdominal pain secondary to intussusception History of GERD History of hiatal hernia Plan: Patient is status post ileocolectomy postop day 1 and was noted to have some sean vated white count continued on antibiotics Patient continues with epidural pain pump which is being discontinued Chest x-ray obtained showing some atelectasis and strongly encouraged the patient continue with incentive spirometer use at least 10 times every hour Patient reports having some flat is with no bowel activity as of yet and has been approved to have sparing sips of water and ice chips with popsicles per surgery. Diet to be advanced per surgery recommendations Recommend repeat CBC to monitor white count and continue antibiotics for now Encouraged increased activity as tolerated We will continue to follow with general surgery during hospitalization. Thank you kindly for this consultation. The impression and plan of care has been dictated by Grace Hardin Nurse Pra ctitioner as directed. Dr. Katie MD I have performed a history and examination and MDM of this patient, discussed the same with the dictator, and agree with the dictator's assessment and plan as written ,documented as a scribe. Based on total visit time, I have performed more than 50% of the visit. Objective - Vital Signs Vital signs: Vital Signs Temp 98.5 F 02/23/23 07:08 Pulse 110 H 02/23/23 07:08 Resp 17 02/23/23 07:08 BP 122/72 02/23/23 07:08 Pulse Ox 93 L 02/23/23 07:08 FiO2 Intake & Output 02/22/23 02/23/23 02/23/23 18:59 06:59 18:59 Intake Total 800 197.867 Output Total 250 725 Balance 550 -527.133 Intake: IV 800 Intake, IV Titration 197.867 Amount Ropivacaine 250 mg 197.867 Hydromorphone (Pf) 5 mg In Sodium Chloride 0.9% 200 ml @ Per Protocol EPIDURAL .Q0M PRN Rx#: [id number] Output: Urine 200 725 Estimated Blood Loss 50 Other: Voiding Method Indwelling Catheter - Labs CBC & Chem 7: 02/23/23 09:40 02/23/23 09:40 Labs: Abnormal Lab Results - Last 24 Hours (Table) 02/22/23 02/22/23 Range/Units 16:58 16:58 WBC 2.52 L (4.50-10.00) X 10*3/uL RBC 4.39 L (4.40-5.60) X 10*6/uL Hgb 11.9 L (13.0-17.0) g/dL Hct 37.8 L (39.6-50.0) % MCHC 31.5 L (32.0-37.0) g/dL MPV 9.0 L (9.5-12.2) FL Lymphocytes # 0.40 L (0.90-5.00) X 10*3/uL Eosinophils # 0 L (0.04-0.35) X 10*3/uL BUN/Creatinine Ratio 26.12 H (12.00-20.00) Ratio Glucose 115 H (70-110) mg/dL Calcium 8.1 L (8.7-10.3) mg/dL
[2023-02-23] MEDS: MELATONIN 5 MG TABLET PO SCH (21:35)
[2023-02-23] MEDS: HYDROcodone/APAP 7.5-325MG 1 EACH TAB PO PRN (21:36)
[2023-02-24] MEDS: ONDANSETRON 4 MG/2 ML VIAL IVP PRN ×2 (04:27→23:17)
[2023-02-24] MEDS: SODIUM CHLORIDE 0.9% 1,000 ML IV SCH ×3 (04:27→23:20)
[2023-02-24] MEDS ORDERED: ACETAMINOPHEN TAB 325 MG TAB PO PRN (08:26)
[2023-02-24] MEDS: HEPARIN SODIUM,PORCINE 5,000 UNIT/ML 1 ML VIAL SQ SCH ×3 (09:55→23:30)
[2023-02-24] MEDS: FAMOTIDINE 20 MG/2 ML VIAL IV SCH ×2 (09:55→20:56)
[2023-02-24] MEDS: ALVIMOPAN 12 MG CAPSULE PO SCH ×2 (09:55→20:55)
[2023-02-24] MEDS: LORATADINE 10 MG TAB PO SCH (09:56)
[2023-02-24 11:07] LABS: HCT 34.6 % (39.6-50.0); HGB 10.8 g/dL (13.0-17.0); MCH 26.8 pg (27.0-32.0); MCHC 31.2 g/dL (32.0-37.0); MCV 85.9 FL (80.0-97.0); Mean Platelet Volume 9.6 FL (9.5-12.2); NRBC Per 100 WBC 0 X 10*3/uL (0.00-0.01); Platelet Count 379 X 10*3/uL (140-440); RBC 4.03 X 10*6/uL (4.40-5.60); RDW 13.2 % (11.5-14.5); WBC 15.86 X 10*3/uL (4.50-10.00)
[2023-02-24] MEDS: LEVOFLOXACIN 500MG-D5W PMX 500 MG in DEXTROSE/WATER 1 100ML.BAG IVPB SCH (11:13)
[2023-02-24 11:45] LABS: Basophils # (A) 0.07 X 10*3/uL (0.00-0.10); Basophils % (A) 0.4 %; Eosinophils # (A) 0.05 X 10*3/uL (0.04-0.35); Eosinophils % (A) 0.3 %; Lymphocytes % (A) 9.5 %; Monocytes # (A) 1.65 X 10*3/uL (0.20-1.00); Monocytes % (A) 10.4 %; Neutrophils % (A) 78.8 %; RBC Morphology Normal (Normal)
--- NOTE | 2023-02-24 13:07 | P.PN ---
Subjective Progress Note Date: 02/24/23 CHIEF COMPLAINT: Small bowel obstruction HISTORY OF PRESENT ILLNESS: Patient postop day #2 status post ileocolectomy for small bowel obstruction secondary to intussusception. Epidural was discontinued yesterday due to not eating patient adequate pain control. Patient reports his pain is doing better today. Still no flatus. NG tube did come out yesterday. He denies any nausea or vomiting. Afebrile. WBC is up from 13-15.86 Hgb 10.8 platelets 379 PHYSICAL EXAM: VITAL SIGNS: Reviewed. GENERAL: Well-developed in no acute distress. ABDOMEN: Softer. Less distended. Prevana wound VAC intact. NEUROLOGIC: Alert and oriented. Cranial nerves II through XII grossly intact. ASSESSMENT: 1. Small bowel obstruction secondary to intussusception status post ileocolectomy 2. Leukocytosis PLAN: -Start clear liquids -Continue IV fluids -Add Flagyl for leukocytosis -Encourage patient to ambulate -Encourage patient to use incentive spirometer -Abdominal binder ordered -Continue Entereg -GI prophylaxis Pepcid and DVT prophylaxis subcu heparin Physician Surface Grinder note has been reviewed by physician. Signing provider agrees with the documented findings, assessment, and plan of care. Objective - Vital Signs Vital signs: Vital Signs Temp 99.1 F 02/24/23 07:11 Pulse 101 H 02/24/23 07:11 Resp 19 02/24/23 07:11 BP 124/76 02/24/23 07:11 Pulse Ox 96 02/24/23 07:11 FiO2 Intake & Output 02/23/23 02/24/23 02/24/23 18:59 06:59 18:59 Output Total 650 525 Balance -650 -525 Weight 83.915 kg Output: Urine 650 525 Other: Voiding Method Indwelling Catheter Indwelling Catheter - Labs CBC & Chem 7: 02/24/23 07:52 02/23/23 09:40
--- NOTE | 2023-02-24 15:17 | XR ---
Upright abdomen. DATE: 02/24/2023. COMPARISON: None available. CLINICAL HISTORY: Abdominal distention. IMPRESSION: There are midline surgical kitty seen within the abdominal wall. There are some dilated loops of small bowel air-fluid levels seen within the central abdomen which wo uld raise the possibility of obstruction. However, there are also air-filled loops of large bowel as ileus would be a consideration as well. CT may help further assess.
[2023-02-24] MEDS: HYDROcodone/APAP 7.5-325MG 1 EACH TAB PO PRN ×2 (15:32→23:19)
[2023-02-24] MEDS: metroNIDAZOLE-NS PMX 500 MG in SALINE 1 100ML.BAG IVPB SCH ×2 (15:33→23:21)
[2023-02-24] MEDS: CEFEPIME 2 GM in SODIUM CHLORIDE 0.9% 100 ML IVPB SCH (17:29)
[2023-02-24] MEDS: MELATONIN 5 MG TABLET PO SCH (20:55)
[2023-02-25] MEDS: CEFEPIME 2 GM in SODIUM CHLORIDE 0.9% 100 ML IVPB SCH ×3 (00:36→17:14)
--- NOTE | 2023-02-25 05:45 | P.PN ---
Subjective Progress Note Date: 02/24/23 patient is 62-year-old gentleman with past medical history significant for GERD who presented to the ER because of abdominal pain for 2 days. Patient states that he was all right yesterday morning when he started developing abdominal pain which was located in epigastric region, sharp in nature, associated with nausea and vomiting. Initially pain was mild but gradually increased in intensity and became cramping in nature. Denied any altered bowel movements. No complaint of blood in stools. No complaint of prior constipation. There was no complain of any fever or chills. Patient denied any recent eating out in restaurants. No sick contacts in the family. There was no complain of any urinary complaints. Because of these symptoms, patient came to the ER Initial lab work done in the ER showed WBC 13, hemoglobin 13.1, platelet count 385, sodium 1:30, potassium 4, BUN 13, creatinine 0.91, glucose 118, lactate 1.6, AST 18, ALT 20, UA negative for infection CT abdominal pelvis done showed approximately 7-8 cm long segment of small bowel and right colon intussusception there appears to be a 2 cm fat density at the lead point. Patient admitted to general surgery. Medicine team was consulted for medical management 02/20. Patient seen and examined. Still not passing any gas. States he is burping. Still abdominal is distended. Stated the pain has improved. Denies any nausea vomiting 02/21. Patient seen and examined. Still complaining of abdominal distention, is not passing any gas. Repeat computed tomography scan was reviewed by surgery, planning ileoColectomy in the morning 02/22. Patient seen and examined. Currently nothing by mouth, scheduled for surgery today. Still not passing gas and abdominal is distended. 02/23/2023 Patient is seen and evaluated in follow-up this morning status post ileocolectomy secondary to bowel obstruction with intussusception. Patient is continued on antibiotics in the form of Levaquin per surgery and appears to be slightly dry being maintained on normal saline at 125 an hour. Epidural pain pump scheduled to be discontinued and patient will be on IV push Dilaudid as needed. Currently nothing by mouth and reports to having small flat is with no bowel activity as of yet. Recommend small sips of water and ice chips sparingly per surgery recommendations. Patient is tachycardic on exam and reports has been an EKG obtained showing sinus tachycardia with a heart rate of 1 19 bpm. Patient also showing some lowered pulse ox readings with 90% on 2 L and does not normally wear oxygen and obtain chest x-ray which showed basilar atelectasis and strongly encouraged the patient to use incentive spirometer at least 10 times every hour while awake. Recommend PT/OT therapy and getting up out of the bed. White count slightly elevated, possibly reactive at 13.3 and repeat CBC is ordered for a.m. Patient is currently afebrile with no reports of chest pain or shortness of breath. Patient asking if he can have something to eat. Per surgery nothing by mouth except ice chips and sips of water. 02/24/2023 Patient is seen and evaluated in follow-up currently sitting up on a 45 angle in the bed and having increasing abdominal distention. Patient is having no bowel activity and has not passed any gas being started on clear liquids with general surgery as attending. Patient does have abdominal binder noted with severe tenderness on palpation. Chest x-ray obtained yesterday currently at room air at reporting any shortness of breath with no acute process noted. Patient is also having low-grade temps and mildly elevated white count we'll consult infectious disease and appreciate input recommendations. Patient reports was up and walking and encouraged increased activity as tolerated as well as continued incentive spirometer use at least 10 times every hour while awake. Patient reports does not want an NG tube placed again will discuss further with general surgery as he may possibly benefit from it for decompression. We'll follow-up on a.m. labs and replace electrolytes per protocol REVIEW OF SYSTEMS: CONSTITUTIONAL: No fever, no malaise,. CARDIOVASCULAR: No chest pain, no palpitations, no syncope. PULMONARY: No shortness of breath, no cough, GASTROINTESTINAL: Reports no bowel activity with an no bowel movement as of yet, continued abdominal discomfort NEUROLOGICAL: No headaches, reports of generalized weakness PHYSICAL EXAMINATION: GENERAL: The patient is alert and oriented x3, thin built, appears older than stated age, well-developed HEENT: Pupils are round and equally reacting to light. EOMI. No scleral icterus. No conjunctival pallor. Normocephalic, atraumatic. No pharyngeal erythema. No thyromegaly. CARDIOVASCULAR: S1 and S2 present. No murmurs, rubs, or gallops. Tachycardic PULMONARY: Chest is clear to auscultation, no wheezing or crackles. ABDOMEN: More distended today with tenderness on palpation, bowel sounds are not audible. No palpable organomegaly. MUSCULOSKELETAL: No joint swelling or deformity. EXTREMITIES: No cyanosis, clubbing, or pedal edema. NEUROLOGICAL: Gross neurological examination did not reveal any focal deficits. Diffusely weak SKIN: No rashes. Assessment: Intussusception of small bowel status post ileocolectomy Leukocytosis, secondary to above, worsening with low-grade temps will consult infectious disease Abdominal distention with concerns of possible obstruction or ileus Abdominal pain secondary to intussusception History of GERD History of hiatal hernia Moderate protein calorie malnutrition with BMI 25.1 GI prophylaxis DVT prophylaxis Full code Plan: Patient is status post ileocolectomy postop day 2 and continues to have some elevated white count continued on antibiotics. Patient having low-grade temps and will consult infectious disease and appreciate input recommendations Patient continues with abdominal distention and appears more distended today will obtain abdominal x-ray. Patient reports does not want an NG tube although may benefit from decompression. Will await report and discuss further with general surgery Continue with incentive spirometer use at least 10 times every hour Encouraged increased activity as tolerated and patient reports was up and walking in the hallway today. Patient reports and continued no bowel activity as of yet. Diet was advanced per surgery recommendations to clear liquids Repeat labs ordered, replace electrolytes per protocol We will continue to follow with general surgery during hospitalization. Thank you kindly for this consultation. The impression and plan of care has been dictated by Grace Hardin, Nurse Practitioner as directed. Dr. Katie MD I have performed a history and examination and MDM of this patient, discussed the same with the dictator, and agree with the dictator's assessment and plan as written ,documented as a scribe. Based on total visit time, I have performed more than 50% of the visit. Objective - Vital Signs Vital signs: Vital Signs Temp 98.6 F 02/25/23 00:50 Pulse 96 02/25/23 00:50 Resp 18 02/25/23 00:50 BP 150/72 02/25/23 00:50 Pulse Ox 92 L 02/25/23 00:50 FiO2 Intake & Output 02/24/23 02/24/23 02/25/23 06:59 18:59 06:59 Output Total 525 300 Balance -525 -300 Output: Urine 525 300 Other: Voiding Method Indwelling Catheter Indwelling Catheter - Labs CBC & Chem 7: 02/24/23 07:52 02/23/23 09:40 Labs: Abnormal Lab Results - Last 24 Hours (Table) 02/24/23 Range/Units 07:52 WBC 15.86 H (4.50-10.00) X 10*3/uL RBC 4.03 L (4.40-5.60) X 10*6/uL Hgb 10.8 L (13.0-17.0) g/dL Hct 34.6 L (39.6-50.0) % MCH 26.8 L (27.0-32.0) pg MCHC 31.2 L (32.0-37.0) g/dL Neutrophils # 12.50 H (1.80-7.70) X 10*3/uL Monocytes # 1.65 H (0.20-1.00) X 10*3/uL
[2023-02-25] MEDS: SODIUM CHLORIDE 0.9% 1,000 ML IV SCH ×2 (06:11→21:01)
--- NOTE | 2023-02-25 09:01 | P.CONS ---
History of Present Illness - Reason for Consult Consult date: 02/24/23 Elevated WBC low-grade temperature Requesting physician: Grace Hardin - Chief Complaint Abdominal pain x few days - History of Present Illness Patient is a 62-year-old male with a past medical history significant for reflux psoriasis history of bowel obstruction presenting to the hospital on 02/18/2023 for evaluation of abdominal pain and vomiting patient symptoms started the day of presentation to the hospital patient on admission presented to the hospital was afebrile has been running a low-grade fever the last day and 2 patient did have a normal white count however the white count is trending up over the last 2 days it is up to 15.86 today patient did have a normal creatinine level exams are normal urine has been negative patient did have a CT of abdominal pelvis on admission there was 7 to 8 cm long segment of the small bowel months to the right colon intussusception scheduled gas/fluid levels patient taken to the OR on 02/22/2023 status post laparotomy with evidence of small bowel obstruction secondary to intussusception status post ileocolectomy with the patient running low-grade fever and white count up to 15,000 today infectious disease was consulted for further management of antibiotic therapy patient was started on Levaquin and Flagyl as of yesterday because of his penicillin allergy, patient mention his abdominal pain different pattern still moderate in intensity with associated abdominal distention no radiation did have some nausea no vomiting not passing any gas denies any chest pain shortness of breath or cough Review of Systems Positive point and negatives has been mentioned in the HPI, complete review of systems was performed and all other systems are negative Past Medical History Past Medical History: GERD/Reflux Additional Past Medical History / Comment(s): colon polyps, hiatal hernia, small bowel obstruction/intusseception, psoriasis History of Any Multi-Drug Resistant Organisms: MRSA Year Discovered:: 2016 MDRO Source:: rt leg Past Surgical History: Tonsillectomy Additional Past Surgical History / Comment(s): surgery to finger, colonscopies, Past Anesthesia/Blood Transfusion Reactions: Motion Sickness Past Psychological History: No Psychological Hx Reported Smoking Status: Never smoker Past Alcohol Use History: Occasional Past Drug Use History: None Reported - Past Family History Brother(s) Family Medical History: Cancer Additional Family Medical History / Comment(s): melanoma on face Medications and Allergies Home Medications Medication Instructions Recorded Confirmed Type Omeprazole [PriLOSEC] 20 mg PO DAILY 01/21/21 02/19/23 History Cetirizine HCl [Zyrtec] 10 mg PO DAILY 02/19/23 02/19/23 History Magnesium 500 mg PO HS 02/19/23 02/19/23 History Acetaminophen Tab [Tylenol] 1,000 mg PO Q6HR PRN #30 tablet 03/02/23 Rx Bacitracin/Polymyx Oint 1 applic TOPICAL DAILY 7 Days each 03/02/23 Rx [Polysporin Oint] Ibuprofen [Motrin] 600 mg PO Q8HR PRN #30 tab 03/02/23 Rx Losartan [Cozaar] 25 mg PO DAILY #30 tab 03/02/23 Rx cefUROXime axetiL [Ceftin] 500 mg PO BID 10 Days #20 tab 03/02/23 Rx metroNIDAZOLE [Flagyl] 500 mg PO TID #30 tab 03/02/23 Rx oxyCODONE HCL [OxyIR] 5 mg PO Q6H PRN 2 Days #8 tab 03/02/23 Rx Allergies Allergy/AdvReac Type Severity Reaction Status Date / Time Penicillins Allergy Rash/Hives Verified 02/19/23 08:03 Physical Exam Vitals: Vital Signs Temp Pulse Resp BP Pulse Ox 02/24/23 14:00 97.9 F 110 H 19 142/80 97 02/24/23 07:11 99.1 F 101 H 19 124/76 96 02/24/23 01:22 98.1 F 109 H 18 132/83 95 02/23/23 20:41 99.4 F 116 H 18 157/88 96 02/23/23 20:00 116 H Intake and Output 02/24/23 02/24/23 02/24/23 06:59 14:59 22:59 Output Total 525 Balance -525 Output: Urine 525 Other: Voiding Method Indwelling Catheter GENERAL DESCRIPTION: Middle-aged male lying in bed, no distress. No tachypnea or accessory muscle of respiration use. HEENT: Shows Pallor , no scleral icterus. Oral mucous membrane is dry. No pharyngeal erythema or thrush NECK: Trachea central, no thyromegaly. LUNGS: Unlabored breathing. Clear to auscultation anteriorly. No wheeze or crackle. HEART: S1, S2, regular rate and rhythm. No loud murmur ABDOMEN: Soft, mild abdominal distention and tenderness EXTREMITIES: No edema of feet. SKIN: No rash, no masses palpable. NEUROLOGICAL: The patient is awake, alert, oriented x3, mood and affect normal. Results CBC & Chem 7: 03/02/23 06:33 03/02/23 06:33 Labs: Abnormal Lab Results - Last 24 Hours (Table) 02/24/23 Range/Units 07:52 WBC 15.86 H (4.50-10.00) X 10*3/uL RBC 4.03 L (4.40-5.60) X 10*6/uL Hgb 10.8 L (13.0-17.0) g/dL Hct 34.6 L (39.6-50.0) % MCH 26.8 L (27.0-32.0) pg MCHC 31.2 L (32.0-37.0) g/dL Neutrophils # 12.50 H (1.80-7.70) X 10*3/uL Monocytes # 1.65 H (0.20-1.00) X 10*3/uL Assessment and Plan (1) SIRS (systemic inflammatory response syndrome) Current Visit: Yes Status: Acute Code(s): R65.10 - SIRS OF NON-INFECTIOUS ORIGIN W/O ACUTE ORGAN DYSFUNCTION SNOMED Code(s): 512810464 Plan: 1patient with a low-grade fever elevated white count in this patient was in the hospital with abdominal pain diagnosed with small bowel obstruction secondary to intussusception s/p laparotomy on 02/22/2023 and did have ileocolectomy possible abdominal source. 2patient with a penicillin allergy 0 mm number of antibiotics safe to use. 3discontinue Levaquin we will add cefepime 2 g every 8 hours and continue with the Flagyl we will follow on clinical condition and cultures to further adjust medication if needed Thank you for this consultation we will follow the patient along with you Dictation was produced using [employer] dictation software. please excuse any grammatical, word or spelling errors. Time with Patient: Greater than 30
[2023-02-25] MEDS: HEPARIN SODIUM,PORCINE 5,000 UNIT/ML 1 ML VIAL SQ SCH ×3 (09:03→23:20)
[2023-02-25] MEDS: metroNIDAZOLE-NS PMX 500 MG in SALINE 1 100ML.BAG IVPB SCH ×3 (09:03→23:20)
[2023-02-25] MEDS: FAMOTIDINE 20 MG/2 ML VIAL IV SCH ×2 (09:03→21:37)
[2023-02-25] MEDS: LORATADINE 10 MG TAB PO SCH (09:04)
[2023-02-25] MEDS: ALVIMOPAN 12 MG CAPSULE PO SCH ×2 (09:04→21:36)
[2023-02-25] MEDS: HYDROcodone/APAP 7.5-325MG 1 EACH TAB PO PRN (10:34)
[2023-02-25 11:13] LABS: Basophils # (A) 0.02 X 10*3/uL (0.00-0.10); Basophils % (A) 0.2 %; Eosinophils # (A) 0.06 X 10*3/uL (0.04-0.35); Eosinophils % (A) 0.5 %; HCT 28.2 % (39.6-50.0); HGB 8.9 g/dL (13.0-17.0); Lymphocytes # (A) 1.65 X 10*3/uL (0.90-5.00); Lymphocytes % (A) 12.4 %; MCH 26.8 pg (27.0-32.0); MCHC 31.6 g/dL (32.0-37.0); MCV 84.9 FL (80.0-97.0); Mean Platelet Volume 9.4 FL (9.5-12.2); Monocytes # (A) 1.17 X 10*3/uL (0.20-1.00); Monocytes % (A) 8.8 %; NRBC Per 100 WBC 0 X 10*3/uL (0.00-0.01); Neutrophils % (A) 77.5 %; Platelet Count 327 X 10*3/uL (140-440); RBC 3.32 X 10*6/uL (4.40-5.60); RDW 13.2 % (11.5-14.5); WBC 13.28 X 10*3/uL (4.50-10.00)
[2023-02-25 11:32] LABS: Blood Urea Nitrogen 20.4 mg/dL (9.0-27.0); Carbon Dioxide 26.6 mmol/L (21.6-31.8); Chloride 104 mmol/L (96-109); Glucose 89 mg/dL (70-110); Magnesium 2.2 mg/dL (1.5-2.4); Potassium 3.5 mmol/L (3.5-5.5); Sodium 138 mmol/L (135-145)
[2023-02-25] MEDS: KETOROLAC 15 MG/ML 1 ML VIAL IVP PRN (12:46)
--- NOTE | 2023-02-25 15:43 | P.PN ---
Subjective Progress Note Date: 02/25/23 CHIEF COMPLAINT: Small bowel obstruction HISTORY OF PRESENT ILLNESS: Patient postop day #3 status post ileocolectomy for small bowel obstruction secondary to intussusception. Patient's pain is controlled. He does report some nausea and has been having abdominal bloating. Patient's abdomen is distended and firm. Patient had abdominal x-ray that reported some dilated loops of small bowel air-fluid levels seen within the central abdomen which could raise possibility of obstruction however there are also air-fluid loops of large bowel as ileus would be considered as well. Patient denies any flatus or bowel movement. Afebrile. WBC is down from 15.86- 13.2 8HB down to 8.9 platelets 327. Infectious disease has adjusted antibiotics and added cefepime. PHYSICAL EXAM: VITAL SIGNS: Reviewed. GENERAL: Well-developed in no acute distress. ABDOMEN: Distended. Tender incision site. Prevana wound VAC intact. No drainage. NEUROLOGIC: Alert and oriented. Cranial nerves II through XII grossly intact. ASSESSMENT: 1. Small bowel obstruction secondary to intussusception status post ileocolectomy 2. Leukocytosis 3. Ileus PLAN: -Downgraded diet nothing by mouth -Continue IV fluids -Antibiotics per infectious disease -Encourage patient to ambulate -Encourage patient to use incentive spirometer -Continue Entereg -Repeat CBC in a.m. -GI prophylaxis Pepcid and DVT prophylaxis subcu heparin Physician Per[employer] Toilet [employer] Maker note has been reviewed by physician. Signing provider agrees with the documented findings, assessment, and plan of care. Objective - Vital Signs Vital signs: Vital Signs Temp 98.0 F 02/25/23 07:15 Pulse 100 02/25/23 07:15 Resp 19 02/25/23 07:15 BP 150/78 02/25/23 07:15 Pulse Ox 91 L 02/25/23 07:15 FiO2 Intake & Output 02/24/23 02/25/23 02/25/23 18:59 06:59 18:59 Output Total 300 Balance -300 Output: Urine 300 Other: Voiding Method Indwelling Catheter # Voids 3 - Labs CBC & Chem 7: 02/25/23 06:35 02/25/23 06:35 Labs: Abnormal Lab Results - Last 24 Hours (Table) 02/24/23 02/25/23 Range/Units 07:52 06:35 WBC 13.28 H (4.50-10.00) X 10*3/uL RBC 3.32 L (4.40-5.60) X 10*6/uL Hgb 8.9 L (13.0-17.0) g/dL Hct 28.2 L (39.6-50.0) % MCH 26.8 L (27.0-32.0) pg MCHC 31.6 L (32.0-37.0) g/dL MPV 9.4 L (9.5-12.2) FL Neutrophils # 12.50 H 10.30 H (1.80-7.70) X 10*3/uL Monocytes # 1.65 H 1.17 H (0.20-1.00) X 10*3/uL
--- NOTE | 2023-02-25 16:52 | P.PN ---
Subjective Progress Note Date: 02/25/23 Principal diagnosis: Reason for follow-up is postop fever and leukocytosis Patient is a 62-year-old male with a past medical history significant for reflux psoriasis history of bowel obstruction presenting to the hospital on 02/18/2023 for evaluation of abdominal pain and vomiting patient had been diagnosed with a small bowel obstruction secondary to intussusception and this patient is status post laparotomy and ileocolectomy On today's evaluation that is 02/25/2023, the patient denies any fever or any chills, the patient is breathing comfortably on room air and denies any shortness of breath, the patient denies any chest pain, no cough or sputum production, patient denies nausea/vomiting abdominal discomfort has decreased in intensity and did not have any bowel movement Patient white count is slightly down to 13.28, creatinine 0.8 Objective - Vital Signs Vital signs: Vital Signs Temp 98.0 F 02/25/23 07:15 Pulse 100 02/25/23 07:15 Resp 19 02/25/23 07:15 BP 150/78 02/25/23 07:15 Pulse Ox 91 L 02/25/23 07:15 FiO2 Intake & Output 02/24/23 02/25/23 02/25/23 18:59 06:59 18:59 Output Total 300 Balance -300 Output: Urine 300 Other: Voiding Method Indwelling Catheter Toilet # Voids 3 - Exam GENERAL DESCRIPTION: Middle-age male lying in bed in no distress RESPIRATORY SYSTEM: Unlabored breathing , clear to auscultation anteriorly HEART: S1 S2 regular rate and rhythm , ABDOMEN: Soft , mild distention and tenderness EXTREMITIES: No edema feet - Labs CBC & Chem 7: 02/25/23 06:35 02/25/23 06:35 Labs: Abnormal Lab Results - Last 24 Hours (Table) 02/25/23 02/25/23 Range/Units 06:35 06:35 WBC 13.28 H (4.50-10.00) X 10*3/uL RBC 3.32 L (4.40-5.60) X 10*6/uL Hgb 8.9 L (13.0-17.0) g/dL Hct 28.2 L (39.6-50.0) % MCH 26.8 L (27.0-32.0) pg MCHC 31.6 L (32.0-37.0) g/dL MPV 9.4 L (9.5-12.2) FL Neutrophils # 10.30 H (1.80-7.70) X 10*3/uL Monocytes # 1.17 H (0.20-1.00) X 10*3/uL BUN/Creatinine Ratio 25.50 H (12.00-20.00) Ratio Calcium 8.0 L (8.7-10.3) mg/dL Assessment and Plan (1) SIRS (systemic inflammatory response syndrome) Current Visit: Yes Status: Acute Code(s): R65.10 - SIRS OF NON-INFECTIOUS ORIGIN W/O ACUTE ORGAN DYSFUNCTION SNOMED Code(s): 450052713 Plan: 1patient with a low-grade fever elevated white count in this patient was in the hospital with abdominal pain diagnosed with small bowel obstruction secondary to intussusception s/p laparotomy on 02/22/2023 and did have ileocolectomy possible abdominal source. 2patient with a penicillin allergy that will limit number of antibiotics safe to use. 3patient to continue with cefepime 2 g every 8 hours and Flagyl , monitor clinical course closely Dictation was produced using [employer] dictation software. please excuse any grammatical, word or spelling errors. Time with Patient: Less than 30
[2023-02-25] MEDS: MELATONIN 5 MG TABLET PO SCH (21:37)
[2023-02-26] MEDS: CEFEPIME 2 GM in SODIUM CHLORIDE 0.9% 100 ML IVPB SCH ×4 (00:30→23:50)
[2023-02-26] MEDS: KETOROLAC 15 MG/ML 1 ML VIAL IVP PRN ×3 (02:20→20:17)
[2023-02-26] MEDS: SODIUM CHLORIDE 0.9% 1,000 ML IV SCH ×3 (03:32→19:52)
--- NOTE | 2023-02-26 04:52 | P.PN ---
Subjective Progress Note Date: 02/25/23 patient is 62-year-old gentleman with past medical history significant for GERD who presented to the ER because of abdominal pain for 2 days. Patient states that he was all right yesterday morning when he started developing abdominal pain which was located in epigastric region, sharp in nature, associated with nausea and vomiting. Initially pain was mild but gradually increased in intensity and became cramping in nature. Denied any altered bowel movements. No complaint of blood in stools. No complaint of prior constipation. There was no complain of any fever or chills. Patient denied any recent eating out in restaurants. No sick contacts in the family. There was no complain of any urinary complaints. Because of these symptoms, patient came to the ER Initial lab work done in the ER showed WBC 13, hemoglobin 13.1, platelet count 385, sodium 1:30, potassium 4, BUN 13, creatinine 0.91, glucose 118, lactate 1.6, AST 18, ALT 20, UA negative for infection CT abdominal pelvis done showed approximately 7-8 cm long segment of small bowel and right colon intussusception there appears to be a 2 cm fat density at the lead point. Patient admitted to general surgery. Medicine team was consulted for medical management 02/20. Patient seen and examined. Still not passing any gas. States he is burping. Still abdominal is distended. Stated the pain has improved. Denies any nausea vomiting 02/21. Patient seen and examined. Still complaining of abdominal distention, is not passing any gas. Repeat computed tomography scan was reviewed by surgery, planning ileoColectomy in the morning 02/22. Patient seen and examined. Currently nothing by mouth, scheduled for surgery today. Still not passing gas and abdominal is distended. 02/23/2023 Patient is seen and evaluated in follow-up this morning status post ileocolectomy secondary to bowel obstruction with intussusception. Patient is continued on antibiotics in the form of Levaquin per surgery and appears to be slightly dry being maintained on normal saline at 125 an hour. Epidural pain pump scheduled to be discontinued and patient will be on IV push Dilaudid as needed. Currently nothing by mouth and reports to having small flat is with no bowel activity as of yet. Recommend small sips of water and ice chips sparingly per surgery recommendations. Patient is tachycardic on exam and reports has been an EKG obtained showing sinus tachycardia with a heart rate of 1 19 bpm. Patient also showing some lowered pulse ox readings with 90% on 2 L and does not normally wear oxygen and obtain chest x-ray which showed basilar atelectasis and strongly encouraged the patient to use incentive spirometer at least 10 times every hour while awake. Recommend PT/OT therapy and getting up out of the bed. White count slightly elevated, possibly reactive at 13.3 and repeat CBC is ordered for a.m. Patient is currently afebrile with no reports of chest pain or shortness of breath. Patient asking if he can have something to eat. Per surgery nothing by mouth except ice chips and sips of water. 02/24/2023 Patient is seen and evaluated in follow-up currently sitting up on a 45 angle in the bed and having increasing abdominal distention. Patient is having no bowel activity and has not passed any gas being started on clear liquids with general surgery as attending. Patient does have abdominal binder noted with severe tenderness on palpation. Chest x-ray obtained yesterday currently at room air at reporting any shortness of breath with no acute process noted. Patient is also having low-grade temps and mildly elevated white count we'll consult infectious disease and appreciate input recommendations. Patient reports was up and walking and encouraged increased activity as tolerated as well as continued incentive spirometer use at least 10 times every hour while awake. Patient reports does not want an NG tube placed again will discuss further with general surgery as he may possibly benefit from it for decompression. We'll follow-up on a.m. labs and replace electrolytes per protocol 02/25/2023 Patient is seen and evaluated in follow-up today with antibiotics transition to cefepime and continued on Flagyl with infectious disease following along with general surgery. Patient's abdomen continues to be distended and firm and underwent abdominal x-ray with concerns of obstruction versus ileus. Discussed further with general surgery and most likely ileus and will make the patient nothing by mouth and close monitoring. Patient has been instructed to encourage increased activity as tolerated more frequent walking and continued incentive spirometer use. White count is trending down and will follow-up with repeat labs. Patient is currently afebrile with no reported chest pain or shortness of breath. Patient continues to report bloating and has not had any gas or bowel movement activity. Occasional nausea with no vomiting. Encouraged avoiding IV pain medications as much as possible. REVIEW OF SYSTEMS: CONSTITUTIONAL: No fever, no malaise,. CARDIOVASCULAR: No chest pain, no palpitations, no syncope. PULMONARY: No shortness of breath, no cough, GASTROINTESTINAL: Reports no bowel activity with an no bowel movement as of yet, continued abdominal distention and bloating NEUROLOGICAL: No headaches, reports of generalized weakness PHYSICAL EXAMINATION: GENERAL: The patient is alert and oriented x3, thin built, appears older than stated age, well-developed HEENT: Pupils are round and equally reacting to light. EOMI. No scleral icterus. No conjunctival pallor. Normocephalic, atraumatic. No pharyngeal erythema. No thyromegaly. CARDIOVASCULAR: S1 and S2 present. No murmurs, rubs, or gallops. Tachycardic PULMONARY: Chest is clear to auscultation, no wheezing or crackles. ABDOMEN: Continues to be distended today with mild tenderness on palpation, bowel sounds are not audible. No palpable organomegaly. MUSCULOSKELETAL: No joint swelling or deformity. EXTREMITIES: No cyanosis, clubbing, or pedal edema. NEUROLOGICAL: Gross neurological examination did not reveal any focal deficits. Diffusely weak SKIN: No rashes. Assessment: Abdominal pain secondary to bowel obstruction with Intussusception of small bowel status post ileocolectomy Leukocytosis, secondary to above, trending down Abdominal distention with concerns of possible ileus History of GERD History of hiatal hernia Moderate protein calorie malnutrition with BMI 25.1 GI prophylaxis DVT prophylaxis Full code Plan: Patient is status post ileocolectomy postop day 3 and continues to have some el evated white count although trending down and infectious disease following and has added cefepime and will continue with Flagyl Patient continues with abdominal distention and abdominal x-ray with concerns of ileus. Will make patient nothing by mouth. Patient does not want NG tube Continue with incentive spirometer use at least 10 times every hour Encouraged increased activity as tolerated and walking frequently is much as tolerated Patient reports and continued no bowel activity as of yet. Repeat labs ordered, replace electrolytes per protocol We will continue to follow with general surgery during hospitalization. Thank you kindly for this consultation. The impression and plan of care has been dictated by Grace Hardin, Nurse Practitioner as directed. Dr. Katie MD I have performed a history and examination and MDM of this patient, discussed the same with the dictator, and agree with the dictator's assessment and plan as written ,documented as a scribe. Based on total visit time, I have performed more than 50% of the visit. Objective - Vital Signs Vital signs: Vital Signs Temp 98.0 F 02/25/23 07:15 Pulse 100 02/25/23 07:15 Resp 19 02/25/23 07:15 BP 150/78 02/25/23 07:15 Pulse Ox 91 L 02/25/23 07:15 FiO2 Intake & Output 02/24/23 02/25/23 02/25/23 18:59 06:59 18:59 Output Total 300 Balance -300 Output: Urine 300 Other: Voiding Method Indwelling Catheter # Voids 3 - Labs CBC & Chem 7: 02/25/23 06:35 02/25/23 06:35 Labs: Abnormal Lab Results - Last 24 Hours (Table) 02/24/23 Range/Units 07:52 WBC 15.86 H (4.50-10.00) X 10*3/uL RBC 4.03 L (4.40-5.60) X 10*6/uL Hgb 10.8 L (13.0-17.0) g/dL Hct 34.6 L (39.6-50.0) % MCH 26.8 L (27.0-32.0) pg MCHC 31.2 L (32.0-37.0) g/dL Neutrophils # 12.50 H (1.80-7.70) X 10*3/uL Monocytes # 1.65 H (0.20-1.00) X 10*3/uL
[2023-02-26] MEDS: metroNIDAZOLE-NS PMX 500 MG in SALINE 1 100ML.BAG IVPB SCH ×3 (09:14→23:13)
[2023-02-26] MEDS: FAMOTIDINE 20 MG/2 ML VIAL IV SCH ×2 (09:17→20:16)
[2023-02-26] MEDS: HEPARIN SODIUM,PORCINE 5,000 UNIT/ML 1 ML VIAL SQ SCH ×3 (09:17→23:14)
[2023-02-26] MEDS: ALVIMOPAN 12 MG CAPSULE PO SCH ×2 (09:17→22:59)
[2023-02-26] MEDS: LORATADINE 10 MG TAB PO SCH (09:17)
[2023-02-26 10:53] LABS: Basophils # (A) 0.03 X 10*3/uL (0.00-0.10); Basophils % (A) 0.2 %; Eosinophils # (A) 0.08 X 10*3/uL (0.04-0.35); Eosinophils % (A) 0.6 %; HCT 29.2 % (39.6-50.0); HGB 9.4 g/dL (13.0-17.0); Lymphocytes % (A) 9.3 %; MCH 26.9 pg (27.0-32.0); MCHC 32.2 g/dL (32.0-37.0); MCV 83.7 FL (80.0-97.0); Mean Platelet Volume 9.4 FL (9.5-12.2); Monocytes # (A) 1.04 X 10*3/uL (0.20-1.00); Monocytes % (A) 8.1 %; NRBC Per 100 WBC 0 X 10*3/uL (0.00-0.01); Neutrophils # (A) 10.48 X 10*3/uL (1.80-7.70); Neutrophils % (A) 81.3 %; Platelet Count 371 X 10*3/uL (140-440); RBC 3.49 X 10*6/uL (4.40-5.60); RDW 13.3 % (11.5-14.5)
[2023-02-26 11:02] LABS: BUN/Creat Ratio 29.29 Ratio (12.00-20.00); Blood Urea Nitrogen 20.5 mg/dL (9.0-27.0); Calcium 7.7 mg/dL (8.7-10.3); Carbon Dioxide 22.5 mmol/L (21.6-31.8); Chloride 107 mmol/L (96-109); Glucose 75 mg/dL (70-110); Potassium 3.1 mmol/L (3.5-5.5); Sodium 141 mmol/L (135-145)
[2023-02-26 13:23] LABS: Magnesium 2.1 mg/dL (1.5-2.4); Phosphorus 2.7 mg/dL (2.4-5.1)
[2023-02-26 14:15] LABS: ALT 14 U/L (10-49); AST 17 U/L (14-35); Albumin 2.3 g/dL (3.8-4.9); Alkaline Phosphatase 52 U/L (41-126); Total Bilirubin <0.2 mg/dL (0.3-1.2); Total Protein 4.4 g/dL (6.2-8.2)
[2023-02-26] MEDS ORDERED: LIDOCAINE 1% INJ 10MG/ML (5 ML VIAL-PF) SQ ONE (14:50)
[2023-02-26] MEDS ORDERED: POTASSIUM CHLORIDE 10 MEQ in WATER FOR INJECTION 1 100ML.BAG IVPB SCH (15:00)
--- NOTE | 2023-02-26 15:19 | P.OP ---
Date of Procedure: 02/26/23 Description of Procedure: Preoperative Diagnosis: Need for peripheral nutrition. Postoperative Diagnosis: Same. Procedure(s) Performed: Ultrasound-guided cannulation left cephalic vein. Insertion of peripherally inserted central catheter under fluoroscopic guidance. Anesthesia: local 1% lidocaine plain Surgeon: Jerry Estimated Blood Loss (ml): 5 IV fluids (ml): 0 Urine output (ml): 0 Pathology: none sent Condition: stable Disposition: no change Indications for Procedure: Patient requires peripheral attrition. patient is offered a PICC line to allow for intravenous administration. Description of Procedure: Patient was brought to the special procedure suite. The left upper extremity sterilely prepped and draped in usual manner. Ultrasound was utilized to identify the cephalic vein which was normally compressible free of visible thrombus. Permenant image was stored. 1% Xylocaine was utilized for local anesthesia tissues overlying the vein. Through this anesthetized area and with the aid of ultrasound a micropuncture needle was utilized to cannulate the vein. Once cannulated, Softip guidewire was advanced into the vein. The needle was withdrawn and a micropuncture sheath and dilator advanced over the guidewire. The guidewire was withdrawn and exchanged for the PICC guidewire and measured 45 cm to the cavoatrial junction. The catheter was cut to size and advanced into the cavoatrial junction without resistance. The sheath was peeled away. Blood was easily withdrawn through the catheter and the catheter was then flushed with heparinized saline solution and secured to the skin. Patient tolerated procedure well and was returned to their room in satisfactory and stable condition.
--- NOTE | 2023-02-26 15:39 | IR ---
EXAMINATION TYPE: IR cvc insert >=5 years DATE OF EXAM: 02/26/2023 COMPARISON: NONE HISTORY: Fluoroscopy time. Fluoroscopy was provided to the referring clinician.
--- NOTE | 2023-02-26 15:57 | P.PN ---
Subjective Progress Note Date: 02/26/23 patient is 62-year-old gentleman with past medical history significant for GERD who presented to the ER because of abdominal pain for 2 days. Patient states that he was all right yesterday morning when he started developing abdominal pain which was located in epigastric region, sharp in nature, associated with nausea and vomiting. Initially pain was mild but gradually increased in intensity and became cramping in nature. Denied any altered bowel movements. No complaint of blood in stools. No complaint of prior constipation. There was no complain of any fever or chills. Patient denied any recent eating out in restaurants. No sick contacts in the family. There was no complain of any urinary complaints. Because of these symptoms, patient came to the ER Initial lab work done in the ER showed WBC 13, hemoglobin 13.1, platelet count 385, sodium 1:30, potassium 4, BUN 13, creatinine 0.91, glucose 118, lactate 1.6, AST 18, ALT 20, UA negative for infection CT abdominal pelvis done showed approximately 7-8 cm long segment of small bowel and right colon intussusception there appears to be a 2 cm fat density at the lead point. Patient admitted to general surgery. Medicine team was consulted for medical management 02/20. Patient seen and examined. Still not passing any gas. States he is burping. Still abdominal is distended. Stated the pain has improved. Denies any nausea vomiting 02/21. Patient seen and examined. Still complaining of abdominal distention, is not passing any gas. Repeat computed tomography scan was reviewed by surgery, planning ileoColectomy in the morning 02/22. Patient seen and examined. Currently nothing by mouth, scheduled for surgery today. Still not passing gas and abdominal is distended. 02/23/2023 Patient is seen and evaluated in follow-up this morning status post ileocolectomy secondary to bowel obstruction with intussusception. Patient is continued on antibiotics in the form of Levaquin per surgery and appears to be slightly dry being maintained on normal saline at 125 an hour. Epidural pain pump scheduled to be discontinued and patient will be on IV push Dilaudid as needed. Currently nothing by mouth and reports to having small flat is with no bowel activity as of yet. Recommend small sips of water and ice chips sparingly per surgery recommendations. Patient is tachycardic on exam and reports has been an EKG obtained showing sinus tachycardia with a heart rate of 1 19 bpm. Patient also showing some lowered pulse ox readings with 90% on 2 L and does not normally wear oxygen and obtain chest x-ray which showed basilar atelectasis and strongly encouraged the patient to use incentive spirometer at least 10 times every hour while awake. Recommend PT/OT therapy and getting up out of the bed. White count slightly elevated, possibly reactive at 13.3 and repeat CBC is ordered for a.m. Patient is currently afebrile with no reports of chest pain or shortness of breath. Patient asking if he can have something to eat. Per surgery nothing by mouth except ice chips and sips of water. 02/24/2023 Patient is seen and evaluated in follow-up currently sitting up on a 45 angle in the bed and having increasing abdominal distention. Patient is having no bowel activity and has not passed any gas being started on clear liquids with general surgery as attending. Patient does have abdominal binder noted with severe tenderness on palpation. Chest x-ray obtained yesterday currently at room air at reporting any shortness of breath with no acute process noted. Patient is also having low-grade temps and mildly elevated white count we'll consult infectious disease and appreciate input recommendations. Patient reports was up and walking and encouraged increased activity as tolerated as well as continued incentive spirometer use at least 10 times every hour while awake. Patient reports does not want an NG tube placed again will discuss further with general surgery as he may possibly benefit from it for decompression. We'll follow-up on a.m. labs and replace electrolytes per protocol 02/25/2023 Patient is seen and evaluated in follow-up today with antibiotics transition to cefepime and continued on Flagyl with infectious disease following along with general surgery. Patient's abdomen continues to be distended and firm and underwent abdominal x-ray with concerns of obstruction versus ileus. Discussed further with general surgery and most likely ileus and will make the patient nothing by mouth and close monitoring. Patient has been instructed to encourage increased activity as tolerated more frequent walking and continued incentive spirometer use. White count is trending down and will follow-up with repeat labs. Patient is currently afebrile with no reported chest pain or shortness of breath. Patient continues to report bloating and has not had any gas or bowel movement activity. Occasional nausea with no vomiting. Encouraged avoiding IV pain medications as much as possible. 02/26/2023 Patient is seen in follow-up today admitted to general surgery services status post ileocolectomy. Patient is reporting to passing large amounts of gas and was able to have a bowel movement today. TPN is being initiated and PICC line ordered per surgery given patient's overall poor oral intake secondary to surgery. patient has been approved for water per surgery as there was concerns of ileus. Patient is currently afebrile and white count is trending down and is maintained on antibiotics with infectious disease following. Patient has been encouraged to get up and walk frequently and reports has been doing so. Encouraged incentive spirometer use at least 10 times every hour while awake. Continue with abdominal binder while out of bed. REVIEW OF SYSTEMS: CONSTITUTIONAL: No fever, no malaise,. CARDIOVASCULAR: No chest pain, no palpitations, no syncope. PULMONARY: No shortness of breath, no cough, GASTROINTESTINAL: Reports passing gas and having bowel movements. Reports abdominal distention is improving and less bloated NEUROLOGICAL: No headaches, reports of generalized weakness PHYSICAL EXAMINATION: GENERAL: The patient is alert and oriented x3, thin built, appears older than stated age, well-developed HEENT: Pupils are round and equally reacting to light. EOMI. No scleral icterus. No conjunctival pallor. Normocephalic, atraumatic. No pharyngeal erythema. No thyromegaly. CARDIOVASCULAR: S1 and S2 present. No murmurs, rubs, or gallops. Tachycardic PULMONARY: Chest is clear to auscultation, no wheezing or crackles. ABDOMEN: Continues to be distended although is improved and much more soft today, bowel sounds are noted. No palpable organomegaly. MUSCULOSKELETAL: No joint swelling or deformity. EXTREMITIES: No cyanosis, clubbing, or pedal edema. NEUROLOGICAL: Gross neurological examination did not reveal any focal deficits. Diffusely weak SKIN: No rashes. Assessment: Abdominal pain secondary to bowel obstruction with Intussusception of small bowel status post ileocolectomy Leukocytosis, secondary to above, trending down Abdominal distention with concerns of possible ileus History of GERD History of hiatal hernia Moderate protein calorie malnutrition with BMI 25.1 GI prophylaxis DVT prophylaxis Full code Plan: Patient is status post ileocolectomy postop day 4 and continues to have elevated white count although trending down and infectious disease following and continued on cefepime and will continue with Flagyl Patient continues with abdominal distention although much improved and soft with positive bowel sounds noted in his passing gas and was able to have a bowel movement today. There was concerns of ileus and patient is nothing by mouth except for a few sips of water and is being started on TPN per surgery. PICC line to be placed by Dr. Edwards today. Continue with incentive spirometer use at least 10 times every hour Encouraged increased activity as tolerated and walking frequently is much as tolerated Encouraged non-narcotic pain medications and will continue with as needed Tylenol or Toradol Repeat labs ordered for a.m. and monitor white count closely. Patient is afebrile We will continue to follow with general surgery during hospitalization. Thank you kindly for this consultation. The impression and plan of care has been dictated by Grace Hardin, Nurse Practitioner as directed. Dr. Katie MD I have performed a history and examination and MDM of this patient, discussed the same with the dictator, and agree with the dictator's assessment and plan as written ,documented as a scribe. Based on total visit time, I have performed more than 50% of the visit. Objective - Vital Signs Vital signs: Vital Signs Temp 98.1 F 02/26/23 13:40 Pulse 90 02/26/23 13:40 Resp 16 02/26/23 13:40 BP 148/77 02/26/23 13:40 Pulse Ox 93 L 02/26/23 13:40 FiO2 Intake & Output 02/25/23 02/26/23 02/26/23 18:59 06:59 18:59 Output Total 1000 Balance -1000 Weight 83.915 kg Output: Urine 1000 Other: Voiding Method Toilet Urinal - Labs CBC & Chem 7: 02/26/23 06:37 02/26/23 06:37 Labs: Abnormal Lab Results - Last 24 Hours (Table) 02/26/23 02/26/23 02/26/23 Range/Units 06:37 06:37 06:37 WBC 12.90 H (4.50-10.00) X 10*3/uL RBC 3.49 L (4.40-5.60) X 10*6/uL Hgb 9.4 L (13.0-17.0) g/dL Hct 29.2 L (39.6-50.0) % MCH 26.9 L (27.0-32.0) pg MPV 9.4 L (9.5-12.2) FL Neutrophils # 10.48 H (1.80-7.70) X 10*3/uL Monocytes # 1.04 H (0.20-1.00) X 10*3/uL Potassium 3.1 L (3.5-5.5) mmol/L BUN/Creatinine Ratio 29.29 H (12.00-20.00) Ratio Calcium 7.7 L (8.7-10.3) mg/dL Total Bilirubin <0.2 L (0.3-1.2) mg/dL Total Protein 4.4 L (6.2-8.2) g/dL Albumin 2.3 L (3.8-4.9) g/dL
[2023-02-26] MEDS ORDERED: FAT EMULSION 20% 250 ML IV SCH (16:00)
[2023-02-26] MEDS ORDERED: MVI, ADULT NO.4 WITH VIT K 10 ML, TRACE (CONC-1ML/DOSE) 1 ML in AMINO ACID 5%-D20W+LYTE... IV SCH ×3 (16:00)
--- NOTE | 2023-02-26 16:02 | P.PN ---
Subjective Progress Note Date: 02/26/23 CHIEF COMPLAINT: Small bowel obstruction HISTORY OF PRESENT ILLNESS: Patient postop day #4 status post ileocolectomy for small bowel obstruction secondary to intussusception. Patient is having a lot of flatus. He reports that the abdominal bloating is less. His pain is controlled. Denies any nausea or vomiting. Afebrile. WBC is down from 13-12.9 Hgb 9.4 potassium 3.1 PHYSICAL EXAM: VITAL SIGNS: Reviewed. GENERAL: Well-developed in no acute distress. ABDOMEN: less Distended. minimal tenderness at incision site. Prevana wound VAC intact. No drainage. NEUROLOGIC: Alert and oriented. Cranial nerves II through XII grossly intact. ASSESSMENT: 1. Small bowel obstruction secondary to intussusception status post ileocolectomy 2. Leukocytosis 3. Postoperative Ileus, can be expected finding 4. Hypokalemia PLAN: -Patient scheduled for PICC line placement for TPN -Consult dietitian for TPN for nutrition support -Start sips of clears -Replace potassium -Continue IV fluids -Antibiotics per infectious disease -Encourage patient to ambulate -Encourage patient to use incentive spirometer -Continue Entereg -Repeat CBC and potassium in a.m. -GI prophylaxis Pepcid and DVT prophylaxis subcu heparin Physician Lead Blender note has been reviewed by physician. Signing provider agrees with the documented findings, assessment, and plan of care. Objective - Vital Signs Vital signs: Vital Signs Temp 97.8 F 02/26/23 08:53 Pulse 89 02/26/23 10:38 Resp 16 02/26/23 10:38 BP 136/72 02/26/23 08:53 Pulse Ox 90 L 02/26/23 08:53 FiO2 Intake & Output 02/25/23 02/26/23 02/26/23 18:59 06:59 18:59 Output Total 1000 Balance -1000 Output: Urine 1000 Other: Voiding Method Toilet Urinal - Labs CBC & Chem 7: 02/26/23 06:37 02/26/23 06:37 Labs: Abnormal Lab Results - Last 24 Hours (Table) 02/26/23 02/26/23 Range/Units 06:37 06:37 WBC 12.90 H (4.50-10.00) X 10*3/uL RBC 3.49 L (4.40-5.60) X 10*6/uL Hgb 9.4 L (13.0-17.0) g/dL Hct 29.2 L (39.6-50.0) % MCH 26.9 L (27.0-32.0) pg MPV 9.4 L (9.5-12.2) FL Neutrophils # 10.48 H (1.80-7.70) X 10*3/uL Monocytes # 1.04 H (0.20-1.00) X 10*3/uL Potassium 3.1 L (3.5-5.5) mmol/L BUN/Creatinine Ratio 29.29 H (12.00-20.00) Ratio Calcium 7.7 L (8.7-10.3) mg/dL
[2023-02-26] MEDS: HYDROcodone/APAP 7.5-325MG 1 EACH TAB PO PRN (16:49)
[2023-02-26] MEDS ORDERED: POTASSIUM CHLORIDE ER 20 MEQ TAB.ER PO ONE (17:00)
--- NOTE | 2023-02-26 17:36 | P.PN ---
Subjective Progress Note Date: 02/26/23 Principal diagnosis: Reason for follow-up is postop fever and leukocytosis Patient is a 62-year-old male with a past medical history significant for reflux psoriasis history of bowel obstruction presenting to the hospital on 02/18/2023 for evaluation of abdominal pain and vomiting patient had been diagnosed with a small bowel obstruction secondary to intussusception and this patient is status post laparotomy and ileocolectomy On today's evaluation that is 02/26/2023 the patient remains to be afebrile, the patient is breathing comfortably on room air and no need for oxygen. The patient denies shortness of breath denies any chest pain or cough, patient did have some nausea but no vomiting abdominal discomfort has decreased in intensity , patient did not have any bowel movement Patient white count is slightly down to 12.90, creatinine 0.7 Objective - Vital Signs Vital signs: Vital Signs Temp 97.8 F 02/26/23 08:53 Pulse 89 02/26/23 10:38 Resp 16 02/26/23 10:38 BP 136/72 02/26/23 08:53 Pulse Ox 90 L 02/26/23 08:53 FiO2 Intake & Output 02/25/23 02/26/23 02/26/23 18:59 06:59 18:59 Output Total 1000 Balance -1000 Weight 83.915 kg Output: Urine 1000 Other: Voiding Method Toilet Urinal - Exam GENERAL DESCRIPTION: Middle-age male lying in bed in no distress RESPIRATORY SYSTEM: Unlabored breathing , clear to auscultation anteriorly HEART: S1 S2 regular rate and rhythm , ABDOMEN: Soft , mild distention and tenderness EXTREMITIES: No edema feet - Labs CBC & Chem 7: 02/26/23 06:37 02/26/23 06:37 Labs: Abnormal Lab Results - Last 24 Hours (Table) 02/26/23 02/26/23 Range/Units 06:37 06:37 WBC 12.90 H (4.50-10.00) X 10*3/uL RBC 3.49 L (4.40-5.60) X 10*6/uL Hgb 9.4 L (13.0-17.0) g/dL Hct 29.2 L (39.6-50.0) % MCH 26.9 L (27.0-32.0) pg MPV 9.4 L (9.5-12.2) FL Neutrophils # 10.48 H (1.80-7.70) X 10*3/uL Monocytes # 1.04 H (0.20-1.00) X 10*3/uL Potassium 3.1 L (3.5-5.5) mmol/L BUN/Creatinine Ratio 29.29 H (12.00-20.00) Ratio Calcium 7.7 L (8.7-10.3) mg/dL Assessment and Plan (1) SIRS (systemic inflammatory response syndrome) Current Visit: Yes Status: Acute Code(s): R65.10 - SIRS OF NON-INFECTIOUS ORIGIN W/O ACUTE ORGAN DYSFUNCTION SNOMED Code(s): 078005221 Plan: 1patient with a low-grade fever elevated white count in this patient was in the hospital with abdominal pain diagnosed with small bowel obstruction secondary to intussusception s/p laparotomy on 02/22/2023 and did have ileocolectomy possible abdominal source. 2patient fever has resolved and the patient white count is trending down, patient to continue with cefepime 2 g every 8 hours and Flagyl , and monitor clinical course closely Dictation was produced using [employer] dictation software. please excuse any grammatical, word or spelling errors. Time with Patient: Less than 30
[2023-02-26] MEDS ORDERED: POTASSIUM CHLORIDE ER 10 MEQ TAB.ER.PRT PO ONE (18:00)
[2023-02-26] MEDS: MELATONIN 5 MG TABLET PO SCH (20:16)
[2023-02-26] MEDS: ONDANSETRON 4 MG/2 ML VIAL IVP PRN (20:17)
[2023-02-27] MEDS: CEFEPIME 2 GM in SODIUM CHLORIDE 0.9% 100 ML IVPB SCH ×2 (09:17→17:09)
[2023-02-27] MEDS: metroNIDAZOLE-NS PMX 500 MG in SALINE 1 100ML.BAG IVPB SCH ×2 (09:19→17:09)
[2023-02-27] MEDS: ALVIMOPAN 12 MG CAPSULE PO SCH ×2 (09:20→19:52)
[2023-02-27] MEDS: HYDROmorphone 1 MG/ML 1 ML SYRINGE IVP PRN ×2 (09:20→21:23)
[2023-02-27] MEDS: HEPARIN SODIUM,PORCINE 5,000 UNIT/ML 1 ML VIAL SQ SCH ×2 (09:20→17:08)
[2023-02-27] MEDS: FAMOTIDINE 20 MG/2 ML VIAL IV SCH ×2 (09:20→19:58)
[2023-02-27] MEDS: LORATADINE 10 MG TAB PO SCH (09:20)
[2023-02-27] MEDS: SODIUM CHLORIDE 0.9% 1,000 ML IV SCH ×2 (09:38→17:10)
[2023-02-27 11:06] LABS: African American GFR (CKD) >90 (>60 ml/min/1.73 sqM); Anion Gap 11 mmol/L; Blood Urea Nitrogen 20 mg/dL (9-20); Calcium 7.6 mg/dL (8.4-10.2); Carbon Dioxide 21 mmol/L (22-30); Chloride 104 mmol/L (98-107); Glucose 113 mg/dL (74-99); Magnesium 2.2 mg/dL (1.6-2.3); Non-African American GFR(CKD) >90 (>60 ml/min/1.73 sqM); Phosphorus 3.1 mg/dL (2.5-4.5); Sodium 136 mmol/L (137-145)
[2023-02-27 11:13] LABS: Potassium 3.3 mmol/L (3.5-5.1)
--- NOTE | 2023-02-27 11:41 | P.PN ---
Subjective Progress Note Date: 02/27/23 patient is 62-year-old gentleman with past medical history significant for GERD who presented to the ER because of abdominal pain for 2 days. Patient states that he was all right yesterday morning when he started developing abdominal pain which was located in epigastric region, sharp in nature, associated with nausea and vomiting. Initially pain was mild but gradually increased in intensity and became cramping in nature. Denied any altered bowel movements. No complaint of blood in stools. No complaint of prior constipation. There was no complain of any fever or chills. Patient denied any recent eating out in restaurants. No sick contacts in the family. There was no complain of any urinary complaints. Because of these symptoms, patient came to the ER Initial lab work done in the ER showed WBC 13, hemoglobin 13.1, platelet count 385, sodium 1:30, potassium 4, BUN 13, creatinine 0.91, glucose 118, lactate 1.6, AST 18, ALT 20, UA negative for infection CT abdominal pelvis done showed approximately 7-8 cm long segment of small bowel and right colon intussusception there appears to be a 2 cm fat density at the lead point. Patient admitted to general surgery. Medicine team was consulted for medical management 02/20. Patient seen and examined. Still not passing any gas. States he is burping. Still abdominal is distended. Stated the pain has improved. Denies any nausea vomiting 02/21. Patient seen and examined. Still complaining of abdominal distention, is not passing any gas. Repeat computed tomography scan was reviewed by surgery, planning ileoColectomy in the morning 02/22. Patient seen and examined. Currently nothing by mouth, scheduled for surgery today. Still not passing gas and abdominal is distended. 02/23/2023 Patient is seen and evaluated in follow-up this morning status post ileocolectomy secondary to bowel obstruction with intussusception. Patient is continued on antibiotics in the form of Levaquin per surgery and appears to be slightly dry being maintained on normal saline at 125 an hour. Epidural pain pump scheduled to be discontinued and patient will be on IV push Dilaudid as needed. Currently nothing by mouth and reports to having small flat is with no bowel activity as of yet. Recommend small sips of water and ice chips sparingly per surgery recommendations. Patient is tachycardic on exam and reports has been an EKG obtained showing sinus tachycardia with a heart rate of 1 19 bpm. Patient also showing some lowered pulse ox readings with 90% on 2 L and does not normally wear oxygen and obtain chest x-ray which showed basilar atelectasis and strongly encouraged the patient to use incentive spirometer at least 10 times every hour while awake. Recommend PT/OT therapy and getting up out of the bed. White count slightly elevated, possibly reactive at 13.3 and repeat CBC is ordered for a.m. Patient is currently afebrile with no reports of chest pain or shortness of breath. Patient asking if he can have something to eat. Per surgery nothing by mouth except ice chips and sips of water. 02/24/2023 Patient is seen and evaluated in follow-up currently sitting up on a 45 angle in the bed and having increasing abdominal distention. Patient is having no bowel activity and has not passed any gas being started on clear liquids with general surgery as attending. Patient does have abdominal binder noted with se meg tenderness on palpation. Chest x-ray obtained yesterday currently at room air at reporting any shortness of breath with no acute process noted. Patient is also having low-grade temps and mildly elevated white count we'll consult infectious disease and appreciate input recommendations. Patient reports was up and walking and encouraged increased activity as tolerated as well as continued incentive spirometer use at least 10 times every hour while awake. Patient reports does not want an NG tube placed again will discuss further with general surgery as he may possibly benefit from it for decompression. We'll follow-up on a.m. labs and replace electrolytes per protocol 02/25/2023 Patient is seen and evaluated in follow-up today with antibiotics transition to cefepime and continued on Flagyl with infectious disease following along with general surgery. Patient's abdomen continues to be distended and firm and underwent abdominal x-ray with concerns of obstruction versus ileus. Discussed further with general surgery and most likely ileus and will make the patient nothing by mouth and close monitoring. Patient has been instructed to encourage increased activity as tolerated more frequent walking and continued incentive spirometer use. White count is trending down and will follow-up with repeat labs. Patient is currently afebrile with no reported chest pain or shortness of breath. Patient continues to report bloating and has not had any gas or bowel movement activity. Occasional nausea with no vomiting. Encouraged avoiding IV pain medications as much as possible. 02/26/2023 Patient is seen in follow-up today admitted to general surgery services status post ileocolectomy. Patient is reporting to passing large amounts of gas and was able to have a bowel movement today. TPN is being initiated and PICC line ordered per surgery given patient's overall poor oral intake secondary to surgery. patient has been approved for water per surgery as there was concerns of ileus. Patient is currently afebrile and white count is trending down and is maintained on antibiotics with infectious disease following. Patient has been encouraged to get up and walk frequently and reports has been doing so. Encouraged incentive spirometer use at least 10 times every hour while awake. Continue with abdominal binder while out of bed. 02/27/2023 Patient evaluated today resting in bed. He is status post ileocolectomy he did have a small hard BM with loose stool yesterday x1. Today he feels his abdominal pain is in the upper abdomen and achy he states it is worse than yesterday and does feel more bloated although he is passing gas. PICC line is in place for TPN. Remains on IV cefepime and IV flagyl. Potassium 3.3. today. Patient is also on dose 8 of 14 of entereg. He does have positive bowel sounds. REVIEW OF SYSTEMS: CONSTITUTIONAL: No fever, no malaise,. CARDIOVASCULAR: No chest pain, no palpitations, no syncope. PULMONARY: No shortness of breath, no cough, GASTROINTESTINAL: Reports passing gas and having bowel movements. Worsening abdominal distention and bloating today. NEUROLOGICAL: No headaches, reports of generalized weakness PHYSICAL EXAMINATION: GENERAL: The patient is alert and oriented x3, thin built, appears older than stated age, well-developed HEENT: Pupils are round and equally reacting to light. EOMI. No scleral icterus. No conjunctival pallor. Normocephalic, atraumatic. No pharyngeal erythema. No thyromegaly. CARDIOVASCULAR: S1 and S2 present. No murmurs, rubs, or gallops. Tachycardic PULMONARY: Chest is clear to auscultation, no wheezing or crackles. ABDOMEN: Continues to be distended although is improved and much more soft today, bowel sounds are noted. No palpable organomegaly. MUSCULOSKELETAL: No joint swelling or deformity. EXTREMITIES: No cyanosis, clubbing, or pedal edema. NEUROLOGICAL: Gross neurological examination did not reveal any focal deficits. Diffusely weak SKIN: No rashes. Has area of erythema lower aspect of the abdominal incision which has been outlined. Assessment: Abdominal pain secondary to bowel obstruction with Intussusception of small bowel status post ileocolectomy Leukocytosis, secondary to above, trending down Abdominal distention with concerns of possible ileus History of GERD History of hiatal hernia Moderate protein calorie malnutrition with BMI 25.1 GI prophylaxis DVT prophylaxis Full code Plan: Patient is status post ileocolectomy postop day 5 and continues to have elevated white count although trending down and infectious disease following and continued on cefepime and will continue with Flagyl Patient continues with abdominal distention although much improved and soft with positive bowel sounds noted in his passing gas and was able to have a bowel movement today. There was concerns of ileus and patient is nothing by mouth except for a few sips of water and is being started on TPN per surgery. PICC line in place. Continue with incentive spirometer use at least 10 times every hour Encouraged increased activity as tolerated and walking frequently is much as tolerated Encouraged non-narcotic pain medications and will continue with as needed Tylenol or Toradol Repeat labs ordered for a.m. and monitor white count closely. Patient is afebrile We will continue to follow with general surgery during hospitalization. Thank you kindly for this consultation. The impression and plan of care has been dictated by Sunita Pizano, Nurse Practitioner as directed. Dr. Katie MD I have performed a history and physical examination and medical decision making of this patient, discussed the same with the dictator, and agree with the dictators assessment and plan as written, documented as a scribe. Based on total visit time, I have performed more than 50% of this visit. Objective - Vital Signs Vital signs: Vital Signs Temp 98.1 F 02/27/23 07:18 Pulse 80 02/27/23 07:18 Resp 20 02/27/23 07:18 BP 146/76 02/27/23 07:18 Pulse Ox 95 02/27/23 07:18 FiO2 Intake & Output 02/26/23 02/27/23 02/27/23 18:59 06:59 18:59 Output Total 1000 250 Balance -1000 -250 Weight 83.915 kg Output: Urine 1000 250 Other: Voiding Method Urinal - Labs CBC & Chem 7: 02/26/23 06:37 02/27/23 08:44 Labs: Abnormal Lab Results - Last 24 Hours (Table) 02/26/23 02/27/23 Range/Units 06:37 08:44 Sodium 136 L (137-145) mmol/L Potassium 3.3 L (3.5-5.1) mmol/L Carbon Dioxide 21 L (22-30) mmol/L Creatinine 0.62 L (0.66-1.25) mg/dL Glucose 113 H (74-99) mg/dL Calcium 7.6 L (8.4-10.2) mg/dL Total Bilirubin <0.2 L (0.3-1.2) mg/dL Total Protein 4.4 L (6.2-8.2) g/dL Albumin 2.3 L (3.8-4.9) g/dL Assessment and Plan Time with Patient: Less than 30
[2023-02-27 12:01] LABS: HCT 28.9 % (39.0-53.0); Hypochromasia Moderate; MCH 27.5 pg (25.0-35.0); MCHC 31.8 g/dL (31.0-37.0); MCV 86.6 fL (80.0-100.0); Mean Platelet Volume 8.6; Platelet Count 349 k/uL (150-450); RBC 3.34 m/uL (4.30-5.90); RDW 13.3 % (11.5-15.5); WBC 11.7 k/uL (3.8-10.6)
[2023-02-27] MEDS: POTASSIUM CHLORIDE ER 10 MEQ TAB.ER.PRT PO SCH ×2 (12:12→19:59)
[2023-02-27 12:27] LABS: HGB 9.2 gm/dL (13.0-17.5)
[2023-02-27] MEDS: HYDROcodone/APAP 7.5-325MG 1 EACH TAB PO PRN ×2 (13:04→20:01)
[2023-02-27] MEDS: 1: MVI, ADULT NO.4 WITH VIT K 10 ML, TRACE (CONC-1ML/DOSE) 1 ML in AMINO ACID 5%-D20W+LY IV SCH ×3 (13:09)
[2023-02-27 13:56] LABS: Band Neutrophils % 1 %; Eosinophils # (M) 0.23 k/uL (0-0.7); Monocytes # (M) 0.94 k/uL (0-1.0); Myelocytes # (M) 0.12 k/uL (0); Myelocytes % 1 %; Neutrophils % (M) 78 %; Nucleated Red Blood Cells 0 /100 WBC (0-0); Total Cells Counted 200
[2023-02-27] MEDS ORDERED: BACITRACIN OINT 1 EACH PACKET TOPICAL ONE (14:29)
--- NOTE | 2023-02-27 14:48 | P.PN ---
Subjective Progress Note Date: 02/27/23 Principal diagnosis: Small bowel obstruction secondary to intussusception Patient is postop day 5 status post open ileal colectomy for intussusception causing obstruction. Patient notes feelings of abdominal distention and nausea, no emesis, reports he is passing some flatus. Denies fever or chills, has noted some blistering redness around his Prevena wound VAC. Objective - Vital Signs Vital signs: Vital Signs Temp 97.9 F 02/27/23 12:56 Pulse 84 02/27/23 12:56 Resp 20 02/27/23 12:56 BP 175/77 02/27/23 12:56 Pulse Ox 94 L 02/27/23 12:56 FiO2 Intake & Output 02/26/23 02/27/23 02/27/23 18:59 06:59 18:59 Output Total 1000 250 Balance -1000 -250 Weight 83.915 kg Output: Urine 1000 250 Other: Voiding Method Urinal - Constitutional General appearance: Present: mild distress - EENT Eyes: Present: PERRLA - Respiratory Respiratory: bilateral: CTA - Cardiovascular Rhythm: regular - Gastrointestinal Gastrointestinal Comment(s): Protuberant, mild diffuse tenderness to deep palpation, surgical clips intact, mild erythema about wound with some blistering on the right upper aspect. General gastrointestinal: Present: decreased bowel sounds - Neurologic Neurologic Comment(s): Alert and oriented 3, appropriate affect - Labs CBC & Chem 7: 02/27/23 08:44 02/27/23 08:44 Labs: Abnormal Lab Results - Last 24 Hours (Table) 02/27/23 02/27/23 Range/Units 08:44 08:44 WBC 11.7 H (3.8-10.6) k/uL RBC 3.34 L (4.30-5.90) m/uL Hgb 9.2 L D (13.0-17.5) gm/dL Hct 28.9 L (39.0-53.0) % Neutrophils # (Manual) 9.20 H (1.3-7.7) k/uL Myelocytes # (Manual) 0.12 H (0) k/uL Sodium 136 L (137-145) mmol/L Potassium 3.3 L (3.5-5.1) mmol/L Carbon Dioxide 21 L (22-30) mmol/L Creatinine 0.62 L (0.66-1.25) mg/dL Glucose 113 H (74-99) mg/dL Calcium 7.6 L (8.4-10.2) mg/dL Assessment and Plan Assessment: 62-year-old male postop day 5 ileocolectomy or intussusception causing obstruction Patient demonstrates some return of bowel function, however he remains markedly distended and uncomfortable. Patient is currently on TPN and IV fluids, advised to limit by mouth intake to ice chips until ileus more fully resolves We'll obtain acute abdominal series to assess bowel. Patient encouraged to ambulate, minimize use of opioids as able. We'll recheck CBC and metabolic profile in a.m. Time with Patient: Less than 30
--- NOTE | 2023-02-27 17:46 | XR ---
EXAMINATION TYPE: XR abdomen acute w cxr DATE OF EXAM: 02/27/2023 COMPARISON: None HISTORY: Pain and distention TECHNIQUE: Acute abdominal series with frontal chest upright and supine views of the abdomen. FINDINGS: Heart size is normal. Pulmonary vasculature is normal. Bibasilar infiltrates are present. C orrelate for atelectasis or pneumonia. No free air is under the diaphragm. ABDOMEN: There are air-fluid levels in the upright view. Surgical skin kitty are present anteriorly . Small amount of colonic bowel gas is present. Correlate for ileus. Partial small bowel obstruction remains within the differential. No mass effect is evident. Psoas margins are normal. IMPRESSION: 1. Air-fluid levels within probable small bowel loops. Correlate for postop ileus versus partial sma ll bowel obstruction. Follow-up is recommended 2. Bibasilar infiltrates. Correlate for subsegmental atelectasis
[2023-02-27] MEDS: MELATONIN 5 MG TABLET PO SCH (20:00)
[2023-02-28] MEDS: metroNIDAZOLE-NS PMX 500 MG in SALINE 1 100ML.BAG IVPB SCH ×4 (00:22→23:46)
[2023-02-28] MEDS: HEPARIN SODIUM,PORCINE 5,000 UNIT/ML 1 ML VIAL SQ SCH ×4 (00:22→23:45)
[2023-02-28] MEDS: CEFEPIME 2 GM in SODIUM CHLORIDE 0.9% 100 ML IVPB SCH ×4 (00:23→23:45)
[2023-02-28] MEDS: SODIUM CHLORIDE 0.9% 1,000 ML IV SCH ×2 (02:55→13:58)
[2023-02-28] MEDS: 1: MVI, ADULT NO.4 WITH VIT K 10 ML, TRACE (CONC-1ML/DOSE) 1 ML in AMINO ACID 5%-D20W+LY IV SCH ×3 (05:46)
[2023-02-28] MEDS: ALVIMOPAN 12 MG CAPSULE PO SCH ×2 (08:51→20:31)
[2023-02-28] MEDS: FAMOTIDINE 20 MG/2 ML VIAL IV SCH ×2 (08:57→20:31)
[2023-02-28] MEDS: KETOROLAC 15 MG/ML 1 ML VIAL IVP PRN ×3 (08:58→20:32)
[2023-02-28] MEDS: LORATADINE 10 MG TAB PO SCH (08:58)
[2023-02-28 10:21] LABS: Basophils % (A) 0 %; Eosinophils # (A) 0.2 k/uL (0-0.7); Eosinophils % (A) 1 %; HCT 30.1 % (39.0-53.0); HGB 9.8 gm/dL (13.0-17.5); Hypochromasia Slight; Lymphocytes # (A) 1.6 k/uL (1.0-4.8); Lymphocytes % (A) 10 %; MCH 27.9 pg (25.0-35.0); MCHC 32.6 g/dL (31.0-37.0); MCV 85.7 fL (80.0-100.0); Mean Platelet Volume 7.7; Monocytes # (A) 0.9 k/uL (0-1.0); Monocytes % (A) 6 %; Neutrophils # (A) 13.1 k/uL (1.3-7.7); Neutrophils % (A) 82 %; Platelet Count 450 k/uL (150-450); RBC 3.51 m/uL (4.30-5.90); RDW 13.5 % (11.5-15.5)
--- NOTE | 2023-02-28 10:57 | P.PN ---
Subjective Progress Note Date: 02/28/23 patient is 62-year-old gentleman with past medical history significant for GERD who presented to the ER because of abdominal pain for 2 days. Patient states that he was all right yesterday morning when he started developing abdominal pain which was located in epigastric region, sharp in nature, associated with nausea and vomiting. Initially pain was mild but gradually increased in intensity and became cramping in nature. Denied any altered bowel movements. No complaint of blood in stools. No complaint of prior constipation. There was no complain of any fever or chills. Patient denied any recent eating out in restaurants. No sick contacts in the family. There was no complain of any urinary complaints. Because of these symptoms, patient came to the ER Initial lab work done in the ER showed WBC 13, hemoglobin 13.1, platelet count 385, sodium 1:30, potassium 4, BUN 13, creatinine 0.91, glucose 118, lactate 1.6, AST 18, ALT 20, UA negative for infection CT abdominal pelvis done showed approximately 7-8 cm long segment of small bowel and right colon intussusception there appears to be a 2 cm fat density at the lead point. Patient admitted to general surgery. Medicine team was consulted for medical management 02/20. Patient seen and examined. Still not passing any gas. States he is burping. Still abdominal is distended. Stated the pain has improved. Denies any nausea vomiting 02/21. Patient seen and examined. Still complaining of abdominal distention, is not passing any gas. Repeat computed tomography scan was reviewed by surgery, planning ileoColectomy in the morning 02/22. Patient seen and examined. Currently nothing by mouth, scheduled for surgery today. Still not passing gas and abdominal is distended. 02/23/2023 Patient is seen and evaluated in follow-up this morning status post ileocolectomy secondary to bowel obstruction with intussusception. Patient is continued on antibiotics in the form of Levaquin per surgery and appears to be slightly dry being maintained on normal saline at 125 an hour. Epidural pain pump scheduled to be discontinued and patient will be on IV push Dilaudid as needed. Currently nothing by mouth and reports to having small flat is with no bowel activity as of yet. Recommend small sips of water and ice chips sparingly per surgery recommendations. Patient is tachycardic on exam and reports has been an EKG obtained showing sinus tachycardia with a heart rate of 1 19 bpm. Patient also showing some lowered pulse ox readings with 90% on 2 L and does not normally wear oxygen and obtain chest x-ray which showed basilar atelectasis and strongly encouraged the patient to use incentive spirometer at least 10 times every hour while awake. Recommend PT/OT therapy and getting up out of the bed. White count slightly elevated, possibly reactive at 13.3 and repeat CBC is ordered for a.m. Patient is currently afebrile with no reports of chest pain or shortness of breath. Patient asking if he can have something to eat. Per surgery nothing by mouth except ice chips and sips of water. 02/24/2023 Patient is seen and evaluated in follow-up currently sitting up on a 45 angle in the bed and having increasing abdominal distention. Patient is having no bowel activity and has not passed any gas being started on clear liquids with general surgery as attending. Patient does have abdominal binder noted with se meg tenderness on palpation. Chest x-ray obtained yesterday currently at room air at reporting any shortness of breath with no acute process noted. Patient is also having low-grade temps and mildly elevated white count we'll consult infectious disease and appreciate input recommendations. Patient reports was up and walking and encouraged increased activity as tolerated as well as continued incentive spirometer use at least 10 times every hour while awake. Patient reports does not want an NG tube placed again will discuss further with general surgery as he may possibly benefit from it for decompression. We'll follow-up on a.m. labs and replace electrolytes per protocol 02/25/2023 Patient is seen and evaluated in follow-up today with antibiotics transition to cefepime and continued on Flagyl with infectious disease following along with general surgery. Patient's abdomen continues to be distended and firm and underwent abdominal x-ray with concerns of obstruction versus ileus. Discussed further with general surgery and most likely ileus and will make the patient nothing by mouth and close monitoring. Patient has been instructed to encourage increased activity as tolerated more frequent walking and continued incentive spirometer use. White count is trending down and will follow-up with repeat labs. Patient is currently afebrile with no reported chest pain or shortness of breath. Patient continues to report bloating and has not had any gas or bowel movement activity. Occasional nausea with no vomiting. Encouraged avoiding IV pain medications as much as possible. 02/26/2023 Patient is seen in follow-up today admitted to general surgery services status post ileocolectomy. Patient is reporting to passing large amounts of gas and was able to have a bowel movement today. TPN is being initiated and PICC line ordered per surgery given patient's overall poor oral intake secondary to surgery. patient has been approved for water per surgery as there was concerns of ileus. Patient is currently afebrile and white count is trending down and is maintained on antibiotics with infectious disease following. Patient has been encouraged to get up and walk frequently and reports has been doing so. Encouraged incentive spirometer use at least 10 times every hour while awake. Continue with abdominal binder while out of bed. 02/27/2023 Patient evaluated today resting in bed. He is status post ileocolectomy he did have a small hard BM with loose stool yesterday x1. Today he feels his abdominal pain is in the upper abdomen and achy he states it is worse than yesterday and does feel more bloated although he is passing gas. PICC line is in place for TPN. Remains on IV cefepime and IV flagyl. Potassium 3.3. today. Patient is also on dose 8 of 14 of entereg. He does have positive bowel sounds. 02/28/2023 Patient is evaluated today sitting up in bed. He reports improvement in his abdominal pain and distention he has not had a bowel movement for 2 days now. Midline surgical dressing was removed he is having some serosanguineous drainage from the lower aspect of the wound kitty are intact. He does have positive bowel sounds he is asking for diet. White count is up to 16 today hemoglobin stable at 9.8. His electrolytes have not been resulted yet. REVIEW OF SYSTEMS: CONSTITUTIONAL: No fever, no malaise,. CARDIOVASCULAR: No chest pain, no palpitations, no syncope. PULMONARY: No shortness of breath, no cough, GASTROINTESTINAL: Reports passing gas and having bowel movements. Worsening abdominal distention and bloating today. NEUROLOGICAL: No headaches, reports of generalized weakness PHYSICAL EXAMINATION: GENERAL: The patient is alert and oriented x3, thin built, appears older than stated age, well-developed HEENT: Pupils are round and equally reacting to light. EOMI. No scleral icterus. No conjunctival pallor. Normocephalic, atraumatic. No pharyngeal erythema. No thyromegaly. CARDIOVASCULAR: S1 and S2 present. No murmurs, rubs, or gallops. Tachycardic PULMONARY: Chest is clear to auscultation, no wheezing or crackles. ABDOMEN: Continues to be distended although is improved and much more soft today, bowel sounds are noted. No palpable organomegaly. serosanguineous drainage from the midline abdominal incision MUSCULOSKELETAL: No joint swelling or deformity. EXTREMITIES: No cyanosis, clubbing, or pedal edema. NEUROLOGICAL: Gross neurological examination did not reveal any focal deficits. Diffusely weak SKIN: No rashes. Has area of erythema lower aspect of the abdominal incision which has been outlined. Assessment: Abdominal pain secondary to bowel obstruction with Intussusception of small bowel status post ileocolectomy Leukocytosis, secondary to above, trending down Hypertension Abdominal distention with concerns of possible ileus History of GERD History of hiatal hernia Moderate protein calorie malnutrition with BMI 25.1 GI prophylaxis DVT prophylaxis Full code Plan: Patient is status post ileocolectomy postop day 6 and continues to have elevated white count although trending down and infectious disease following and continued on cefepime and will continue with Flagyl. White count is trending upwards. Patient continues with abdominal distention although much improved and soft with positive bowel sounds noted in his passing gas and was able to have a bowel movement on 02/26. There was concerns of ileus and patient is nothing by mouth except for a few sips of water and is being started on TPN per surgery. PICC line in place. He does have continued abdominal pain and distention. Continue with incentive spirometer use at least 10 times every hour Encouraged increased activity as tolerated and walking frequently is much as tolerated Encouraged non-narcotic pain medications and will continue with as needed Tylenol or Toradol Repeat labs ordered for a.m. and monitor white count closely. Patient is afebrile We will continue to follow with general surgery during hospitalization. Thank you kindly for this consultation. The impression and plan of care has been dictated by Sunita Pizano, Nurse Practitioner as directed. Dr. Kaite MD I have performed a history and physical examination and medical decision making of this patient, discussed the same with the dictator, and agree with the dictators assessment and plan as written, documented as a scribe. Based on total visit time, I have performed more than 50% of this visit. Objective - Vital Signs Vital signs: Vital Signs Temp 97.4 F L 02/28/23 08:36 Pulse 89 02/28/23 08:36 Resp 20 02/28/23 08:36 BP 190/88 02/28/23 08:36 Pulse Ox 93 L 02/28/23 08:36 FiO2 Intake & Output 02/27/23 02/28/23 02/28/23 18:59 06:59 18:59 Intake Total 2021 Output Total 650 Balance -650 2021 Intake: Intake, IV Titration 2021 Amount Mvi, Adult No.4 with Vit 1011 K 10 ml Trace (Conc-1Ml/ Dose) 1 ml In Amino Acid 5%-D20w+Lytes*E* 1,000 ml @ 30 mls/hr IV .Q24H [facility] Rx#:[id number] Mvi, Adult No.4 with Vit 1011 K 10 ml Trace (Conc-1Ml/ Dose) 1 ml In Amino Acid 5%-D20w+Lytes*E* 1,000 ml @ 70 mls/hr IV .BY DURATION [facility] Rx#: [id number] Output: Urine 650 - Labs CBC & Chem 7: 02/28/23 08:53 02/27/23 08:44 Labs: Abnormal Lab Results - Last 24 Hours (Table) 02/27/23 02/27/23 02/28/23 Range/Units 08:44 08:44 08:53 WBC 11.7 H 16.0 H (3.8-10.6) k/uL RBC 3.34 L 3.51 L (4.30-5.90) m/uL Hgb 9.2 L D 9.8 L (13.0-17.5) gm/dL Hct 28.9 L 30.1 L (39.0-53.0) % Neutrophils # 13.1 H (1.3-7.7) k/uL Neutrophils # (Manual) 9.20 H (1.3-7.7) k/uL Myelocytes # (Manual) 0.12 H (0) k/uL Sodium 136 L (137-145) mmol/L Potassium 3.3 L (3.5-5.1) mmol/L Carbon Dioxide 21 L (22-30) mmol/L Creatinine 0.62 L (0.66-1.25) mg/dL Glucose 113 H (74-99) mg/dL Calcium 7.6 L (8.4-10.2) mg/dL Assessment and Plan Time with Patient: Less than 30
[2023-02-28 11:07] LABS: African American GFR (CKD) >90 (>60 ml/min/1.73 sqM); Anion Gap 9 mmol/L; Blood Urea Nitrogen 13 mg/dL (9-20); Calcium 7.7 mg/dL (8.4-10.2); Carbon Dioxide 26 mmol/L (22-30); Chloride 102 mmol/L (98-107); Glucose 114 mg/dL (74-99); Magnesium 2.1 mg/dL (1.6-2.3); Non-African American GFR(CKD) >90 (>60 ml/min/1.73 sqM); Phosphorus 3.1 mg/dL (2.5-4.5); Potassium 3.1 mmol/L (3.5-5.1); Sodium 137 mmol/L (137-145)
[2023-02-28] MEDS: LOSARTAN 25 MG TAB PO SCH (13:01)
[2023-02-28] MEDS ORDERED: Potassium Replacement Protocol 1 EACH MISC MISCELLANE PRN (14:16)
[2023-02-28] MEDS: ONDANSETRON 4 MG/2 ML VIAL IVP PRN (14:53)
--- NOTE | 2023-02-28 14:54 | P.PN ---
Subjective Progress Note Date: 02/27/23 Principal diagnosis: Reason for follow-up is postop fever and leukocytosis Patient is a 62-year-old male with a past medical history significant for reflux psoriasis history of bowel obstruction presenting to the hospital on 02/18/2023 for evaluation of abdominal pain and vomiting patient had been diagnosed with a small bowel obstruction secondary to intussusception and this patient is status post laparotomy and ileocolectomy On today's evaluation that is 02/27/2023 the patient continues to be afebrile, the patient is breathing comfortably on room air and denies any shortness of breath, the patient denies chest pain or cough, patient denies having any nausea or vomiting did have few bowel movements has been complaining of more abdominal distention and wants the Prevana wound VAC to be taken off Patient white count is slightly down to 11.7, creatinine 0.62 Objective - Vital Signs Vital signs: Vital Signs Temp 98.1 F 02/27/23 07:18 Pulse 80 02/27/23 07:18 Resp 20 02/27/23 07:18 BP 146/76 02/27/23 07:18 Pulse Ox 95 02/27/23 07:18 FiO2 Intake & Output 02/26/23 02/27/23 02/27/23 18:59 06:59 18:59 Output Total 1000 250 Balance -1000 -250 Weight 83.915 kg Output: Urine 1000 250 Other: Voiding Method Urinal - Exam GENERAL DESCRIPTION: Middle-age male lying in bed in no distress RESPIRATORY SYSTEM: Unlabored breathing , clear to auscultation anteriorly HEART: S1 S2 regular rate and rhythm , ABDOMEN: Soft , mild distention and tenderness EXTREMITIES: No edema feet - Labs CBC & Chem 7: 02/28/23 08:53 02/28/23 08:53 Labs: Abnormal Lab Results - Last 24 Hours (Table) 02/26/23 02/27/23 02/27/23 Range/Units 06:37 08:44 08:44 WBC 11.7 H (3.8-10.6) k/uL RBC 3.34 L (4.30-5.90) m/uL Hgb 9.2 L D (13.0-17.5) gm/dL Hct 28.9 L (39.0-53.0) % Sodium 136 L (137-145) mmol/L Potassium 3.3 L (3.5-5.1) mmol/L Carbon Dioxide 21 L (22-30) mmol/L Creatinine 0.62 L (0.66-1.25) mg/dL Glucose 113 H (74-99) mg/dL Calcium 7.6 L (8.4-10.2) mg/dL Total Bilirubin <0.2 L (0.3-1.2) mg/dL Total Protein 4.4 L (6.2-8.2) g/dL Albumin 2.3 L (3.8-4.9) g/dL Assessment and Plan (1) SIRS (systemic inflammatory response syndrome) Current Visit: Yes Status: Acute Code(s): R65.10 - SIRS OF NON-INFECTIOUS ORIGIN W/O ACUTE ORGAN DYSFUNCTION SNOMED Code(s): 308912715 Plan: 1patient with a low-grade fever elevated white count in this patient was in the hospital with abdominal pain diagnosed with small bowel obstruction secondary to intussusception s/p laparotomy on 02/22/2023 and did have ileocolectomy possible abdominal source. 2patient fever has resolved and the patient white count is trending down, patient will be reevaluated by surgery and possible removal of his postop wound VAC and need for repeat CT abdominal pelvis 3patient to continue with cefepime 2 g every 8 hours and Flagyl , and monitor clinical course closely Dictation was produced using [employer] dictation software. please excuse any grammatical, word or spelling errors. Time with Patient: Less than 30
--- NOTE | 2023-02-28 14:56 | P.PN ---
Subjective Progress Note Date: 02/28/23 Principal diagnosis: Reason for follow-up is postop fever and leukocytosis Patient is a 62-year-old male with a past medical history significant for reflux psoriasis history of bowel obstruction presenting to the hospital on 02/18/2023 for evaluation of abdominal pain and vomiting patient had been diagnosed with a small bowel obstruction secondary to intussusception and this patient is status post laparotomy and ileocolectomy On today's evaluation that is 02/28/2023 the patient denies any fever or any chills, the patient denies shortness of breath chest pain or cough, the patient did have removal of Prevana wound VAC by surgeon yesterday and mentioned abdominal discomfort and distention has slightly decreased no nausea no vomiting passing gas Patient white count is slightly up to 16,000 today, creatinine 0.65 Objective - Vital Signs Vital signs: Vital Signs Temp 97.4 F L 02/28/23 13:44 Pulse 84 02/28/23 13:44 Resp 20 02/28/23 13:44 BP 183/84 02/28/23 13:44 Pulse Ox 93 L 02/28/23 13:44 FiO2 Intake & Output 02/27/23 02/28/23 02/28/23 18:59 06:59 18:59 Intake Total 2021 Output Total 650 Balance -650 2021 Intake: Intake, IV Titration 2021 Amount Mvi, Adult No.4 with Vit 1011 K 10 ml Trace (Conc-1Ml/ Dose) 1 ml In Amino Acid 5%-D20w+Lytes*E* 1,000 ml @ 30 mls/hr IV .Q24H [facility] Rx#:[id number] Mvi, Adult No.4 with Vit 1011 K 10 ml Trace (Conc-1Ml/ Dose) 1 ml In Amino Acid 5%-D20w+Lytes*E* 1,000 ml @ 70 mls/hr IV .BY DURATION [facility] Rx#: [id number] Output: Urine 650 - Exam GENERAL DESCRIPTION: Middle-age male lying in bed in no distress RESPIRATORY SYSTEM: Unlabored breathing , clear to auscultation anteriorly HEART: S1 S2 regular rate and rhythm , ABDOMEN: Soft , mild distention and tenderness, no significant drainage EXTREMITIES: No edema feet - Labs CBC & Chem 7: 02/28/23 08:53 02/28/23 08:53 Labs: Abnormal Lab Results - Last 24 Hours (Table) 02/28/23 02/28/23 Range/Units 08:53 08:53 WBC 16.0 H (3.8-10.6) k/uL RBC 3.51 L (4.30-5.90) m/uL Hgb 9.8 L (13.0-17.5) gm/dL Hct 30.1 L (39.0-53.0) % Neutrophils # 13.1 H (1.3-7.7) k/uL Potassium 3.1 L (3.5-5.1) mmol/L Creatinine 0.65 L (0.66-1.25) mg/dL Glucose 114 H (74-99) mg/dL Calcium 7.7 L (8.4-10.2) mg/dL Assessment and Plan (1) SIRS (systemic inflammatory response syndrome) Current Visit: Yes Status: Acute Code(s): R65.10 - SIRS OF NON-INFECTIOUS ORIGIN W/O ACUTE ORGAN DYSFUNCTION SNOMED Code(s): 008968577 Plan: 1patient with a low-grade fever elevated white count in this patient was in the hospital with abdominal pain diagnosed with small bowel obstruction secondary to intussusception s/p laparotomy on 02/22/2023 and did have ileocolectomy possible abdominal source. 2patient fever has resolved however the patient was noticed to have slight worsening of the white count with acute abdominal series shows possible ileus may benefit from CTal pelvis for now continue with cefepime and Flagyl Questions and concerns were answered Dictation was produced using [employer] dictation software. please excuse any grammatical, word or spelling errors. Time with Patient: Less than 30
[2023-02-28] MEDS: POTASSIUM CHLORIDE 10 MEQ in WATER FOR INJECTION 1 100ML.BAG IVPB SCH ×4 (15:16→20:30)
--- NOTE | 2023-02-28 16:55 | P.PN ---
Subjective Progress Note Date: 02/28/23 He is passing flatus and having bowel movements. On liquids advance diet to low fiber. Dressing intact. Objective - Vital Signs Vital signs: Vital Signs Temp 97.4 F L 02/28/23 13:44 Pulse 84 02/28/23 13:44 Resp 20 02/28/23 13:44 BP 183/84 02/28/23 13:44 Pulse Ox 93 L 02/28/23 13:44 FiO2 Intake & Output 02/27/23 02/28/23 02/28/23 18:59 06:59 18:59 Intake Total 2021 Output Total 650 Balance -650 2021 Intake: Intake, IV Titration 2021 Amount Mvi, Adult No.4 with Vit 1011 K 10 ml Trace (Conc-1Ml/ Dose) 1 ml In Amino Acid 5%-D20w+Lytes*E* 1,000 ml @ 30 mls/hr IV .Q24H [facility] Rx#:[id number] Mvi, Adult No.4 with Vit 1011 K 10 ml Trace (Conc-1Ml/ Dose) 1 ml In Amino Acid 5%-D20w+Lytes*E* 1,000 ml @ 70 mls/hr IV .BY DURATION [facility] Rx#: [id number] Output: Urine 650 - Labs CBC & Chem 7: 02/28/23 08:53 02/28/23 08:53 Labs: Abnormal Lab Results - Last 24 Hours (Table) 02/28/23 02/28/23 Range/Units 08:53 08:53 WBC 16.0 H (3.8-10.6) k/uL RBC 3.51 L (4.30-5.90) m/uL Hgb 9.8 L (13.0-17.5) gm/dL Hct 30.1 L (39.0-53.0) % Neutrophils # 13.1 H (1.3-7.7) k/uL Potassium 3.1 L (3.5-5.1) mmol/L Creatinine 0.65 L (0.66-1.25) mg/dL Glucose 114 H (74-99) mg/dL Calcium 7.7 L (8.4-10.2) mg/dL
[2023-02-28] MEDS: SIMETHICONE 40 MG/0.6 ML DROPS 2,000 MG/30 ML BOTTLE PO SCH ×2 (18:58→20:46)
[2023-02-28] MEDS: MELATONIN 5 MG TABLET PO SCH (20:31)
[2023-02-28] MEDS: 1: MVI, ADULT NO.4 WITH VIT K 10 ML, TRACE (CONC-1ML/DOSE) 1 ML, POTASSIUM CHLORIDE 10 M IV SCH ×4 (20:31)
[2023-03-01] MEDS: SODIUM CHLORIDE 0.9% 1,000 ML IV SCH (01:06)
[2023-03-01] MEDS: KETOROLAC 15 MG/ML 1 ML VIAL IVP PRN ×3 (03:11→21:26)
[2023-03-01 07:58] LABS: African American GFR (CKD) >90 (>60 ml/min/1.73 sqM); Anion Gap 8 mmol/L; Blood Urea Nitrogen 14 mg/dL (9-20); Calcium 8.1 mg/dL (8.4-10.2); Carbon Dioxide 27 mmol/L (22-30); Chloride 102 mmol/L (98-107); Glucose 113 mg/dL (74-99); Magnesium 2.2 mg/dL (1.6-2.3); Non-African American GFR(CKD) >90 (>60 ml/min/1.73 sqM); Phosphorus 3.5 mg/dL (2.5-4.5); Potassium 3.7 mmol/L (3.5-5.1); Sodium 137 mmol/L (137-145)
[2023-03-01] MEDS: LOSARTAN 25 MG TAB PO SCH (08:33)
[2023-03-01] MEDS: metroNIDAZOLE-NS PMX 500 MG in SALINE 1 100ML.BAG IVPB SCH ×3 (08:33→23:07)
[2023-03-01] MEDS: CEFEPIME 2 GM in SODIUM CHLORIDE 0.9% 100 ML IVPB SCH ×3 (08:33→23:06)
[2023-03-01] MEDS: FAMOTIDINE 20 MG/2 ML VIAL IV SCH ×2 (08:33→21:26)
[2023-03-01] MEDS: HEPARIN SODIUM,PORCINE 5,000 UNIT/ML 1 ML VIAL SQ SCH ×3 (08:33→23:07)
[2023-03-01] MEDS: ALVIMOPAN 12 MG CAPSULE PO SCH ×2 (08:33→21:26)
[2023-03-01] MEDS: LORATADINE 10 MG TAB PO SCH (08:33)
[2023-03-01] MEDS: SIMETHICONE 40 MG/0.6 ML DROPS 2,000 MG/30 ML BOTTLE PO SCH ×4 (08:34→21:27)
[2023-03-01] MEDS ORDERED: POTASSIUM CHLORIDE 10 MEQ in WATER FOR INJECTION 1 100ML.BAG IVPB ONE (11:30)
[2023-03-01] MEDS: BACITRACIN/POLYMYX 500-10,000 UNIT/GM OINT 14 GM TUBE TOPICAL SCH (11:31)
[2023-03-01] MEDS: 1: MVI, ADULT NO.4 WITH VIT K 10 ML, TRACE (CONC-1ML/DOSE) 1 ML, POTASSIUM CHLORIDE 10 M IV SCH ×4 (12:31)
--- NOTE | 2023-03-01 14:43 | P.PN ---
Subjective Progress Note Date: 03/01/23 CHIEF COMPLAINT: Small bowel obstruction HISTORY OF PRESENT ILLNESS: Patient postop day #7 status post ileocolectomy for small bowel obstruction secondary to intussusception. Patient having bowel movements. He is currently on a low fiber diet. Patient was having blistering along the abdominal incision due to the Prevana wound vac. Prevana wound vac was discontinued over the weekend. Patient reports very minimal abdominal pain. He is tolerating a low fiber diet. Denies any nausea or vomiting. Afebrile. WBC up at 16 as of yesterday sodium 137 potassium 3.7 creatinine 0.67 PHYSICAL EXAM: VITAL SIGNS: Reviewed. GENERAL: Well-developed in no acute distress. ABDOMEN: Soft. Nondistended. Incision clean dry and intact. Blisters noted on the sides of the incision. NEUROLOGIC: Alert and oriented. Cranial nerves II through XII grossly intact. ASSESSMENT: 1. Small bowel obstruction secondary to intussusception status post ileocolectomy 2. Leukocytosis 3. Postoperative Ileus, can be expected finding PLAN: -Continue low fiber diet -Wean off TPN -Patient can shower -Discontinue IV fluids -Antibiotics per infectious disease -Encourage patient to ambulate -Encourage patient to use incentive spirometer -Check CBC in a.m. -GI prophylaxis Pepcid and DVT prophylaxis subcu heparin Physician [employer] Architect note has been reviewed by physician. Signing provider agrees with the documented findings, assessment, and plan of care. Objective - Vital Signs Vital signs: Vital Signs Temp 97.6 F 03/01/23 07:26 Pulse 80 03/01/23 08:33 Resp 20 03/01/23 08:33 BP 159/76 03/01/23 07:26 Pulse Ox 96 03/01/23 07:26 FiO2 Intake & Output 02/28/23 03/01/23 03/01/23 18:59 06:59 18:59 Output Total 1550 Balance -1550 Output: Urine 1550 Other: Voiding Method Toilet Urinal - Labs CBC & Chem 7: 02/28/23 08:53 03/01/23 05:53 Labs: Abnormal Lab Results - Last 24 Hours (Table) 03/01/23 Range/Units 05:53 Glucose 113 H (74-99) mg/dL Calcium 8.1 L (8.4-10.2) mg/dL
--- NOTE | 2023-03-01 15:38 | XR ---
EXAMINATION TYPE: XR chest 1V portable DATE OF EXAM: 03/01/2023 COMPARISON: 02/23/2023 HISTORY: Shortness of breath TECHNIQUE: Single frontal view of the chest is obtained. FINDINGS: A left-sided PICC line seen with bilateral consolidation and small left effusion. Mild alhaji tral interstitial prominence. No pneumothorax. Heart size stable. Osseous structures demonstrate hype rtrophic and degenerative change of the spine and AC joint arthropathy. IMPRESSION: 1. Increasing left-sided consolidation with small effusion correlate for pneumonia. 2. Mild interval increase in interstitium may represent mild venous congestion.
[2023-03-01] MEDS: MELATONIN 5 MG TABLET PO SCH (21:27)
[2023-03-02 02:53] VITALS: RESP 18
[2023-03-02] MEDS: KETOROLAC 15 MG/ML 1 ML VIAL IVP PRN ×2 (03:44→09:48)
[2023-03-02] MEDS ORDERED: FUROSEMIDE 10 MG/ML 4 ML VIAL IV STA (04:01)
--- NOTE | 2023-03-02 04:09 | P.PN ---
Subjective Progress Note Date: 03/01/23 patient is 62-year-old gentleman with past medical history significant for GERD who presented to the ER because of abdominal pain for 2 days. Patient states that he was all right yesterday morning when he started developing abdominal pain which was located in epigastric region, sharp in nature, associated with nausea and vomiting. Initially pain was mild but gradually increased in intensity and became cramping in nature. Denied any altered bowel movements. No complaint of blood in stools. No complaint of prior constipation. There was no complain of any fever or chills. Patient denied any recent eating out in restaurants. No sick contacts in the family. There was no complain of any urinary complaints. Because of these symptoms, patient came to the ER Initial lab work done in the ER showed WBC 13, hemoglobin 13.1, platelet count 385, sodium 1:30, potassium 4, BUN 13, creatinine 0.91, glucose 118, lactate 1.6, AST 18, ALT 20, UA negative for infection CT abdominal pelvis done showed approximately 7-8 cm long segment of small bowel and right colon intussusception there appears to be a 2 cm fat density at the lead point. Patient admitted to general surgery. Medicine team was consulted for medical management 02/20. Patient seen and examined. Still not passing any gas. States he is burping. Still abdominal is distended. Stated the pain has improved. Denies any nausea vomiting 02/21. Patient seen and examined. Still complaining of abdominal distention, is not passing any gas. Repeat computed tomography scan was reviewed by surgery, planning ileoColectomy in the morning 02/22. Patient seen and examined. Currently nothing by mouth, scheduled for surgery today. Still not passing gas and abdominal is distended. 02/23/2023 Patient is seen and evaluated in follow-up this morning status post ileocolectomy secondary to bowel obstruction with intussusception. Patient is continued on antibiotics in the form of Levaquin per surgery and appears to be slightly dry being maintained on normal saline at 125 an hour. Epidural pain pump scheduled to be discontinued and patient will be on IV push Dilaudid as needed. Currently nothing by mouth and reports to having small flat is with no bowel activity as of yet. Recommend small sips of water and ice chips sparingly per surgery recommendations. Patient is tachycardic on exam and reports has been an EKG obtained showing sinus tachycardia with a heart rate of 1 19 bpm. Patient also showing some lowered pulse ox readings with 90% on 2 L and does not normally wear oxygen and obtain chest x-ray which showed basilar atelectasis and strongly encouraged the patient to use incentive spirometer at least 10 times every hour while awake. Recommend PT/OT therapy and getting up out of the bed. White count slightly elevated, possibly reactive at 13.3 and repeat CBC is ordered for a.m. Patient is currently afebrile with no reports of chest pain or shortness of breath. Patient asking if he can have something to eat. Per surgery nothing by mouth except ice chips and sips of water. 02/24/2023 Patient is seen and evaluated in follow-up currently sitting up on a 45 angle in the bed and having increasing abdominal distention. Patient is having no bowel activity and has not passed any gas being started on clear liquids with general surgery as attending. Patient does have abdominal binder noted with severe tenderness on palpation. Chest x-ray obtained yesterday currently at room air at reporting any shortness of breath with no acute process noted. Patient is also having low-grade temps and mildly elevated white count we'll consult infectious disease and appreciate input recommendations. Patient reports was up and walking and encouraged increased activity as tolerated as well as continued incentive spirometer use at least 10 times every hour while awake. Patient reports does not want an NG tube placed again will discuss further with general surgery as he may possibly benefit from it for decompression. We'll follow-up on a.m. labs and replace electrolytes per protocol 02/25/2023 Patient is seen and evaluated in follow-up today with antibiotics transition to cefepime and continued on Flagyl with infectious disease following along with general surgery. Patient's abdomen continues to be distended and firm and underwent abdominal x-ray with concerns of obstruction versus ileus. Discussed further with general surgery and most likely ileus and will make the patient nothing by mouth and close monitoring. Patient has been instructed to encourage increased activity as tolerated more frequent walking and continued incentive spirometer use. White count is trending down and will follow-up with repeat labs. Patient is currently afebrile with no reported chest pain or shortness of breath. Patient continues to report bloating and has not had any gas or bowel movement activity. Occasional nausea with no vomiting. Encouraged avoiding IV pain medications as much as possible. 02/26/2023 Patient is seen in follow-up today admitted to general surgery services status post ileocolectomy. Patient is reporting to passing large amounts of gas and was able to have a bowel movement today. TPN is being initiated and PICC line ordered per surgery given patient's overall poor oral intake secondary to surgery. patient has been approved for water per surgery as there was concerns of ileus. Patient is currently afebrile and white count is trending down and is maintained on antibiotics with infectious disease following. Patient has been encouraged to get up and walk frequently and reports has been doing so. Encouraged incentive spirometer use at least 10 times every hour while awake. Continue with abdominal binder while out of bed. 02/27/2023 Patient evaluated today resting in bed. He is status post ileocolectomy he did have a small hard BM with loose stool yesterday x1. Today he feels his abdominal pain is in the upper abdomen and achy he states it is worse than yesterday and does feel more bloated although he is passing gas. PICC line is in place for TPN. Remains on IV cefepime and IV flagyl. Potassium 3.3. today. Patient is also on dose 8 of 14 of entereg. He does have positive bowel sounds. 02/28/2023 Patient is evaluated today sitting up in bed. He reports improvement in his abdominal pain and distention he has not had a bowel movement for 2 days now. Midline surgical dressing was removed he is having some serosanguineous drainage from the lower aspect of the wound kitty are intact. He does have positive bowel sounds he is asking for diet. White count is up to 16 today hemoglobin stable at 9.8. His electrolytes have not been resulted yet. 03/01/2023 Patient is seen in follow-up today with general surgery and infectious disease following closely. Patient does have a PICC line in being weaned off TPN diet is being advanced and tolerating. Patient is eating very little although attempting to increase oral intake slowly. Patient maintained on antibiotics with infectious disease following. Replace electrolytes per protocol. There is concern for volume overload and will obtain a chest x-ray. Patient is currently denying any shortness of breath and is maintained on room air maintaining oxygen saturations above 90%. Encouraged to increase activity as tolerated and continued walking with continued incentive spirometer use at least 10 times every hour while awake. REVIEW OF SYSTEMS: CONSTITUTIONAL: No fever, no malaise,. CARDIOVASCULAR: No chest pain, no palpitations, no syncope. PULMONARY: No shortness of breath, no cough, GASTROINTESTINAL: Reports passing gas and having bowel movements. Continued abdominal distention and tenderness NEUROLOGICAL: No headaches, reports of generalized weakness PHYSICAL EXAMINATION: GENERAL: The patient is alert and oriented x3, thin built, appears older than stated age, well-developed HEENT: Pupils are round and equally reacting to light. EOMI. No scleral icterus. No conjunctival pallor. Normocephalic, atraumatic. No pharyngeal erythema. No thyromegaly. CARDIOVASCULAR: S1 and S2 muffled PULMONARY: Diminished breath sounds bilaterally otherwise chest is clear to au scultation, no wheezing or crackles. ABDOMEN: Continues to be distended although is improved and soft today, bowel sounds are noted. No palpable organomegaly. serosanguineous drainage from the midline abdominal incision MUSCULOSKELETAL: No joint swelling or deformity. EXTREMITIES: No cyanosis, clubbing, or pedal edema. NEUROLOGICAL: Gross neurological examination did not reveal any focal deficits. Diffusely weak SKIN: No rashes. Has area of erythema lower aspect of the abdominal incision wh ich has been outlined. Assessment: Abdominal pain secondary to bowel obstruction with Intussusception of small bowel status post ileocolectomy Leukocytosis, secondary to above Hypertension Abdominal distention with concerns of possible ileus, improving History of GERD History of hiatal hernia Moderate protein calorie malnutrition with BMI 25.1 GI prophylaxis DVT prophylaxis Full code Plan: Patient is status post ileocolectomy postop day 7 and continues to have elevated white count although trending down and infectious disease following and continued on cefepime and will continue with Flagyl. White count is trending upwards. A.m. labs pending. Will order chest x-ray to monitor for any volume overload Patient continues with abdominal distention although much improved and soft with positive bowel sounds noted in his passing gas and was able to have a bowel movement on 02/26. There was concerns of ileus and having multiple bowel movements since and TPN weaned off and diet has been advanced per surgery Continue with incentive spirometer use at least 10 times every hour Encouraged increased activity as tolerated and walking frequently is much as tolerated Encouraged non-narcotic pain medications and will continue with as needed Tylenol or Toradol Repeat labs ordered for a.m. and monitor white count closely. Patient is afebrile We will continue to follow with general surgery during hospitalization. Thank you kindly for this consultation. The impression and plan of care has been dictated by Grace Hardin, Nurse Practitioner as directed. Dr. Willard MD I have performed a history and examination and MDM of this patient, discussed the same with the dictator, and agree with the dictator's assessment and plan as written ,documented as a scribe. Based on total visit time, I have performed more than 50% of the visit. Objective - Vital Signs Vital signs: Vital Signs Temp 98.1 F 03/01/23 12:55 Pulse 97 03/01/23 12:55 Resp 20 03/01/23 12:55 BP 146/76 03/01/23 12:55 Pulse Ox 95 03/01/23 12:55 FiO2 Intake & Output 02/28/23 03/01/23 03/01/23 18:59 06:59 18:59 Output Total 1550 Balance -1550 Weight 83.915 kg Output: Urine 1550 Other: Voiding Method Toilet Urinal - Labs CBC & Chem 7: 02/28/23 08:53 03/01/23 05:53 Labs: Abnormal Lab Results - Last 24 Hours (Table) 03/01/23 Range/Units 05:53 Glucose 113 H (74-99) mg/dL Calcium 8.1 L (8.4-10.2) mg/dL
[2023-03-02 07:48] VITALS: BP 145/74; PULSE 86; TEMP 98
[2023-03-02] MEDS: metroNIDAZOLE-NS PMX 500 MG in SALINE 1 100ML.BAG IVPB SCH (08:47)
[2023-03-02] MEDS: HEPARIN SODIUM,PORCINE 5,000 UNIT/ML 1 ML VIAL SQ SCH (08:48)
[2023-03-02] MEDS: BACITRACIN/POLYMYX 500-10,000 UNIT/GM OINT 14 GM TUBE TOPICAL SCH (08:48)
[2023-03-02] MEDS: LORATADINE 10 MG TAB PO SCH (08:48)
[2023-03-02] MEDS: FAMOTIDINE 20 MG/2 ML VIAL IV SCH (08:48)
[2023-03-02] MEDS: LOSARTAN 25 MG TAB PO SCH (08:48)
[2023-03-02] MEDS: SIMETHICONE 40 MG/0.6 ML DROPS 2,000 MG/30 ML BOTTLE PO SCH ×2 (08:49→12:30)
[2023-03-02] MEDS: CEFEPIME 2 GM in SODIUM CHLORIDE 0.9% 100 ML IVPB SCH (10:10)
[2023-03-02 10:55] LABS: Basophils # (A) 0.08 X 10*3/uL (0.00-0.10); Basophils % (A) 0.6 %; Eosinophils # (A) 0.39 X 10*3/uL (0.04-0.35); Eosinophils % (A) 2.9 %; HCT 32.5 % (39.6-50.0); HGB 10.5 g/dL (13.0-17.0); Lymphocytes # (A) 2.26 X 10*3/uL (0.90-5.00); Lymphocytes % (A) 16.8 %; MCH 26.6 pg (27.0-32.0); MCHC 32.3 g/dL (32.0-37.0); MCV 82.5 FL (80.0-97.0); Mean Platelet Volume 9.3 FL (9.5-12.2); Monocytes # (A) 1.21 X 10*3/uL (0.20-1.00); NRBC Per 100 WBC 0 X 10*3/uL (0.00-0.01); Neutrophils # (A) 9.29 X 10*3/uL (1.80-7.70); Neutrophils % (A) 68.8 %; Platelet Count 528 X 10*3/uL (140-440); RBC 3.94 X 10*6/uL (4.40-5.60); RDW 13.6 % (11.5-14.5); WBC 13.48 X 10*3/uL (4.50-10.00)
[2023-03-02 11:06] LABS: BUN/Creat Ratio 14.75 Ratio (12.00-20.00); Blood Urea Nitrogen 11.8 mg/dL (9.0-27.0); Calcium 8.6 mg/dL (8.7-10.3); Carbon Dioxide 27.5 mmol/L (21.6-31.8); Chloride 100 mmol/L (96-109); Glucose 100 mg/dL (70-110); Potassium 3.9 mmol/L (3.5-5.5); Sodium 136 mmol/L (135-145)
--- NOTE | 2023-03-02 11:34 | P.DS ---
Providers Date of admission: 02/19/23 09:39 Expected date of discharge: 03/02/23 Attending physician: Ebenezer Singer Consults: 02/23/23 09:53 Consult Physician Routine Consulting Provider: Ama Lamar Consult Reason/Comments: medical management Do you want consulting provider notified?: Yes 02/24/23 14:47 Consult Physician Urgent Consulting Provider: Feroz Sanderson Consult Reason/Comments: recent intususseption surg, elevated WBC, low grade temps Do you want consulting provider notified?: Yes [facility] Course: Discharge diagnosis 1. Small bowel obstruction secondary to intussusception status post ileocolectomy 2. Leukocytosis 3. Postoperative Ileus, resolved. Can be expected finding Hospital Course This is a 62-year-old male who presented with abdominal pain and nausea. Patient was found to have small bowel obstruction secondary to intussusception. He is status post ileocolectomy. During his hospitalization he did develop a postoperative ileus. Patient is tolerating diet. He is having bowel movements. His pain is controlled. He has been up ambulating. He is afebrile. He is stable for discharge. Patient will be discharged with antibiotics. Physician Photographer Finish note has been reviewed by physician. Signing provider agrees with the documented findings, assessment, and plan of care. Patient Condition at Discharge: Stable Plan - Discharge Summary Discharge Rx Participant: No New Discharge Prescriptions: New Ibuprofen [Motrin] 600 mg PO Q8HR PRN #30 tab PRN Reason: Pain oxyCODONE HCL [OxyIR] 5 mg PO Q6H PRN 2 Days #8 tab PRN Reason: Pain Acetaminophen Tab [Tylenol] 1,000 mg PO Q6HR PRN #30 tablet PRN Reason: Pain Bacitracin/Polymyx Oint [Polysporin Oint] 1 applic TOPICAL DAILY 7 Days each Continue Omeprazole [PriLOSEC] 20 mg PO DAILY Magnesium 500 mg PO HS Cetirizine HCl [Zyrtec] 10 mg PO DAILY Discharge Medication List Omeprazole [PriLOSEC] 20 mg PO DAILY 01/21/21 [History] Cetirizine HCl [Zyrtec] 10 mg PO DAILY 02/19/23 [History] Magnesium 500 mg PO HS 02/19/23 [History] Acetaminophen Tab [Tylenol] 1,000 mg PO Q6HR PRN #30 tablet 03/02/23 [Rx] Bacitracin/Polymyx Oint [Polysporin Oint] 1 applic TOPICAL DAILY 7 Days each 03/02/23 [Rx] Ibuprofen [Motrin] 600 mg PO Q8HR PRN #30 tab 03/02/23 [Rx] oxyCODONE HCL [OxyIR] 5 mg PO Q6H PRN 2 Days #8 tab 03/02/23 [Rx] Follow up Appointment(s)/Referral(s): Arvind Santamaria DO [Primary Care Provider] - 1-2 days Ebenezer Singer MD [STAFF PHYSICIAN] - 03/11/23 2:00 pm Activity/Diet/Wound Care/Special Instructions: No driving while taking OxyIR No lifting over 10 pounds Shower daily. No soaking or tub baths for 2 weeks Very light activity until you are reevaluated at your follow up appointment with your surgeon Discharge Disposition: HOME SELF-CARE
--- NOTE | 2023-03-02 15:26 | P.PN ---
Subjective Progress Note Date: 03/01/23 Principal diagnosis: Reason for follow-up is postop fever and leukocytosis Patient is a 62-year-old male with a past medical history significant for reflux psoriasis history of bowel obstruction presenting to the hospital on 02/18/2023 for evaluation of abdominal pain and vomiting patient had been diagnosed with a small bowel obstruction secondary to intussusception and this patient is status post laparotomy and ileocolectomy On today's evaluation that is 03/01/2023 the patient remains to be afebrile, the patient is breathing comfortably on room air and no need for supplemental oxygen, the patient denies having any chest pain denies any cough or sputum production, patient denies abdominal discomfort has decreased in intensity and less distention no nausea no vomiting did have a bowel movement Patient white count 16,000 as of 02/29/2020CBC was done today, creatinine 0.67 Objective - Vital Signs Vital signs: Vital Signs Temp 98.1 F 03/01/23 12:55 Pulse 97 03/01/23 12:55 Resp 20 03/01/23 12:55 BP 146/76 03/01/23 12:55 Pulse Ox 95 03/01/23 16:27 FiO2 Intake & Output 03/01/23 03/01/23 03/02/23 06:59 18:59 06:59 Output Total 1550 500 Balance -1550 -500 Weight 83.915 kg Output: Urine 1550 500 Other: Voiding Method Toilet Urinal - Exam GENERAL DESCRIPTION: Middle-age male lying in bed in no distress RESPIRATORY SYSTEM: Unlabored breathing , clear to auscultation anteriorly HEART: S1 S2 regular rate and rhythm , ABDOMEN: Soft , mild distention and tenderness, no significant drainage EXTREMITIES: No edema feet - Labs CBC & Chem 7: 03/02/23 06:33 03/02/23 06:33 Labs: Abnormal Lab Results - Last 24 Hours (Table) 03/01/23 Range/Units 05:53 Glucose 113 H (74-99) mg/dL Calcium 8.1 L (8.4-10.2) mg/dL Assessment and Plan (1) SIRS (systemic inflammatory response syndrome) Current Visit: Yes Status: Acute Code(s): R65.10 - SIRS OF NON-INFECTIOUS ORIGIN W/O ACUTE ORGAN DYSFUNCTION SNOMED Code(s): 709808879 Plan: 1patient with a low-grade fever elevated white count in this patient was in the hospital with abdominal pain diagnosed with small bowel obstruction secondary to intussusception s/p laparotomy on 02/22/2023 and did have ileocolectomy possible abdominal source. 2patient fever has resolved however the patient was noticed to have slight worsening of the white count as of yesterday we will repeat his CBC with a.m. lab, patient to continue with cefepime and Flagyl Questions and concerns were answered Dictation was produced using [employer] dictation software. please excuse any grammatical, word or spelling errors. Time with Patient: Less than 30
--- NOTE | 2023-03-02 15:28 | P.PN ---
Subjective Progress Note Date: 03/02/23 Principal diagnosis: Reason for follow-up is postop fever and leukocytosis Patient is a 62-year-old male with a past medical history significant for reflux psoriasis history of bowel obstruction presenting to the hospital on 02/18/2023 for evaluation of abdominal pain and vomiting patient had been diagnosed with a small bowel obstruction secondary to intussusception and this patient is status post laparotomy and ileocolectomy On today's evaluation that is 03/02/2023, the patient continues to be afebrile and is breathing comfortably on room air, and patient denies any shortness of breath, chest pain, no cough or sputum production, patient denies nausea/vomiting abdominal distention has decreased denies any abdominal pain and mention he did have a few bowel movements Patient white count is down to 13.48, creatinine 0.8 Objective - Vital Signs Vital signs: Vital Signs Temp 98.0 F 03/02/23 07:32 Pulse 86 03/02/23 07:32 Resp 18 03/02/23 07:32 BP 145/74 03/02/23 07:32 Pulse Ox 91 L 03/02/23 07:32 FiO2 Intake & Output 03/01/23 03/02/23 03/02/23 18:59 06:59 18:59 Output Total 500 Balance -500 Weight 83.915 kg Output: Urine 500 Other: Voiding Method Toilet Toilet Urinal Urinal - Exam GENERAL DESCRIPTION: Middle-age male lying in bed in no distress RESPIRATORY SYSTEM: Unlabored breathing , clear to auscultation anteriorly HEART: S1 S2 regular rate and rhythm , ABDOMEN: Soft , mild distention however no significant tenderness EXTREMITIES: No edema feet - Labs CBC & Chem 7: 03/02/23 06:33 03/02/23 06:33 Labs: Abnormal Lab Results - Last 24 Hours (Table) 03/02/23 03/02/23 Range/Units 06:33 06:33 WBC 13.48 H (4.50-10.00) X 10*3/uL RBC 3.94 L (4.40-5.60) X 10*6/uL Hgb 10.5 L (13.0-17.0) g/dL Hct 32.5 L (39.6-50.0) % MCH 26.6 L (27.0-32.0) pg Plt Count 528 H (140-440) X 10*3/uL MPV 9.3 L (9.5-12.2) FL Neutrophils # 9.29 H (1.80-7.70) X 10*3/uL Monocytes # 1.21 H (0.20-1.00) X 10*3/uL Eosinophils # 0.39 H (0.04-0.35) X 10*3/uL Calcium 8.6 L (8.7-10.3) mg/dL Assessment and Plan (1) SIRS (systemic inflammatory response syndrome) Current Visit: Yes Status: Acute Code(s): R65.10 - SIRS OF NON-INFECTIOUS ORIGIN W/O ACUTE ORGAN DYSFUNCTION SNOMED Code(s): 123474850 Plan: 1patient with a low-grade fever elevated white count in this patient was in the hospital with abdominal pain diagnosed with small bowel obstruction secondary to intussusception s/p laparotomy on 02/22/2023 and did have ileocolectomy possible abdominal source. 2patient fever has resolved patient white count is trending down patient is feeling better and anxious to go home patient has been cleared for discharge by surgery we will recommend a short course of oral Ceftin and Flagyl on discharge and close out patient follow-up for multiple questions concerned were answered Dictation was produced using [employer] dictation software. please excuse any grammatical, word or spelling errors. Time with Patient: Less than 30
--- NOTE | 2023-03-03 02:01 | P.PN ---
Subjective Progress Note Date: 03/02/23 patient is 62-year-old gentleman with past medical history significant for GERD who presented to the ER because of abdominal pain for 2 days. Patient states that he was all right yesterday morning when he started developing abdominal pain which was located in epigastric region, sharp in nature, associated with nausea and vomiting. Initially pain was mild but gradually increased in intensity and became cramping in nature. Denied any altered bowel movements. No complaint of blood in stools. No complaint of prior constipation. There was no complain of any fever or chills. Patient denied any recent eating out in restaurants. No sick contacts in the family. There was no complain of any urinary complaints. Because of these symptoms, patient came to the ER Initial lab work done in the ER showed WBC 13, hemoglobin 13.1, platelet count 385, sodium 1:30, potassium 4, BUN 13, creatinine 0.91, glucose 118, lactate 1.6, AST 18, ALT 20, UA negative for infection CT abdominal pelvis done showed approximately 7-8 cm long segment of small bowel and right colon intussusception there appears to be a 2 cm fat density at the lead point. Patient admitted to general surgery. Medicine team was consulted for medical management 02/20. Patient seen and examined. Still not passing any gas. States he is burping. Still abdominal is distended. Stated the pain has improved. Denies any nausea vomiting 02/21. Patient seen and examined. Still complaining of abdominal distention, is not passing any gas. Repeat computed tomography scan was reviewed by surgery, planning ileoColectomy in the morning 02/22. Patient seen and examined. Currently nothing by mouth, scheduled for surgery today. Still not passing gas and abdominal is distended. 02/23/2023 Patient is seen and evaluated in follow-up this morning status post ileocolectomy secondary to bowel obstruction with intussusception. Patient is continued on antibiotics in the form of Levaquin per surgery and appears to be slightly dry being maintained on normal saline at 125 an hour. Epidural pain pump scheduled to be discontinued and patient will be on IV push Dilaudid as needed. Currently nothing by mouth and reports to having small flat is with no bowel activity as of yet. Recommend small sips of water and ice chips sparingly per surgery recommendations. Patient is tachycardic on exam and reports has been an EKG obtained showing sinus tachycardia with a heart rate of 1 19 bpm. Patient also showing some lowered pulse ox readings with 90% on 2 L and does not normally wear oxygen and obtain chest x-ray which showed basilar atelectasis and strongly encouraged the patient to use incentive spirometer at least 10 times every hour while awake. Recommend PT/OT therapy and getting up out of the bed. White count slightly elevated, possibly reactive at 13.3 and repeat CBC is ordered for a.m. Patient is currently afebrile with no reports of chest pain or shortness of breath. Patient asking if he can have something to eat. Per surgery nothing by mouth except ice chips and sips of water. 02/24/2023 Patient is seen and evaluated in follow-up currently sitting up on a 45 angle in the bed and having increasing abdominal distention. Patient is having no bowel activity and has not passed any gas being started on clear liquids with general surgery as attending. Patient does have abdominal binder noted with severe tenderness on palpation. Chest x-ray obtained yesterday currently at room air at reporting any shortness of breath with no acute process noted. Patient is also having low-grade temps and mildly elevated white count we'll consult infectious disease and appreciate input recommendations. Patient reports was up and walking and encouraged increased activity as tolerated as well as continued incentive spirometer use at least 10 times every hour while awake. Patient reports does not want an NG tube placed again will discuss further with general surgery as he may possibly benefit from it for decompression. We'll follow-up on a.m. labs and replace electrolytes per protocol 02/25/2023 Patient is seen and evaluated in follow-up today with antibiotics transition to cefepime and continued on Flagyl with infectious disease following along with general surgery. Patient's abdomen continues to be distended and firm and underwent abdominal x-ray with concerns of obstruction versus ileus. Discussed further with general surgery and most likely ileus and will make the patient nothing by mouth and close monitoring. Patient has been instructed to encourage increased activity as tolerated more frequent walking and continued incentive spirometer use. White count is trending down and will follow-up with repeat labs. Patient is currently afebrile with no reported chest pain or shortness of breath. Patient continues to report bloating and has not had any gas or bowel movement activity. Occasional nausea with no vomiting. Encouraged avoiding IV pain medications as much as possible. 02/26/2023 Patient is seen in follow-up today admitted to general surgery services status post ileocolectomy. Patient is reporting to passing large amounts of gas and was able to have a bowel movement today. TPN is being initiated and PICC line ordered per surgery given patient's overall poor oral intake secondary to surgery. patient has been approved for water per surgery as there was concerns of ileus. Patient is currently afebrile and white count is trending down and is maintained on antibiotics with infectious disease following. Patient has been encouraged to get up and walk frequently and reports has been doing so. Encouraged incentive spirometer use at least 10 times every hour while awake. Continue with abdominal binder while out of bed. 02/27/2023 Patient evaluated today resting in bed. He is status post ileocolectomy he did have a small hard BM with loose stool yesterday x1. Today he feels his abdominal pain is in the upper abdomen and achy he states it is worse than yesterday and does feel more bloated although he is passing gas. PICC line is in place for TPN. Remains on IV cefepime and IV flagyl. Potassium 3.3. today. Patient is also on dose 8 of 14 of entereg. He does have positive bowel sounds. 02/28/2023 Patient is evaluated today sitting up in bed. He reports improvement in his abdominal pain and distention he has not had a bowel movement for 2 days now. Midline surgical dressing was removed he is having some serosanguineous drainage from the lower aspect of the wound kitty are intact. He does have positive bowel sounds he is asking for diet. White count is up to 16 today hemoglobin stable at 9.8. His electrolytes have not been resulted yet. 03/01/2023 Patient is seen in follow-up today with general surgery and infectious disease following closely. Patient does have a PICC line in being weaned off TPN diet is being advanced and tolerating. Patient is eating very little although attempting to increase oral intake slowly. Patient maintained on antibiotics with infectious disease following. Replace electrolytes per protocol. There is concern for volume overload and will obtain a chest x-ray. Patient is currently denying any shortness of breath and is maintained on room air maintaining oxygen saturations above 90%. Encouraged to increase activity as tolerated and continued walking with continued incentive spirometer use at least 10 times every hour while awake. 03/02/2023 Patient is seen in follow-up today currently has been up and walking reports to feeling much improved and would like to go home. Patient is tolerating diet had a bowel movement again today. Patient is afebrile and remains on room air with no reported shortness of breath. Patient was incentive spirometer at bedside encouraged to continue using at least 10 times every hour as well as taking home and continuing to use. White count trending down and patient is maintained on antibiotics with infectious disease following awaiting discharge antibiotic recommendations. Strongly encouraged close outpatient follow-up with surgery as well as primary care provider in the outpatient setting. Patient is currently medically stable and awaiting discharge planning. We will continue to follow with general surgery during hospitalization. REVIEW OF SYSTEMS: CONSTITUTIONAL: No fever, no malaise,. CARDIOVASCULAR: No chest pain, no palpitations, no syncope. PULMONARY: No shortness of breath, no cough, GASTROINTESTINAL: Reports passing gas and having bowel movements. Continued abdominal distention is improving NEUROLOGICAL: No headaches, reports of generalized weakness PHYSICAL EXAMINATION: GENERAL: The patient is alert and oriented x3, thin built, appears older than stated age, well-developed HEENT: Pupils are round and equally reacting to light. EOMI. No scleral icterus. No conjunctival pallor. Normocephalic, atraumatic. No pharyngeal erythema. No thyromegaly. CARDIOVASCULAR: S1 and S2 muffled PULMONARY: Diminished breath sounds bilaterally otherwise chest is clear to auscultation, no wheezing or crackles. ABDOMEN: Continues to be distended although is improved and soft today, bowel sounds are noted. No palpable organomegaly. serosanguineous drainage from the midline abdominal incision , current dressing was changed and dry MUSCULOSKELETAL: No joint swelling or deformity. EXTREMITIES: No cyanosis, clubbing, or pedal edema. NEUROLOGICAL: Gross neurological examination did not reveal any focal deficits. Diffusely weak SKIN: No rashes. Has area of erythema lower aspect of the abdominal incision which has been outlined. Assessment: Abdominal pain secondary to bowel obstruction with Intussusception of small bowel status post ileocolectomy Leukocytosis, secondary to above Hypertension Abdominal distention with concerns of possible ileus, improving History of GERD History of hiatal hernia Moderate protein calorie malnutrition with BMI 25.1 GI prophylaxis DVT prophylaxis Full code Plan: Patient is status post ileocolectomy postop day 8 and continues to have elevated white count although trending down and infectious disease following and continued on cefepime and will continue with Flagyl. Awaiting discharge antibiotic recommendations per ID Patient continues with abdominal distention although much improved and soft with positive bowel sounds noted in his passing gas and was able to have a bowel movement this morning. Tolerating diet Continue with incentive spirometer use at least 10 times every hour and encourage the patient to take home to continue using as well Encouraged increased activity as tolerated and walking frequently is much as tolerated Encouraged non-narcotic pain medications and will continue with as needed Tylenol or Toradol Patient is afebrile Discharge planning in process for today and encourage the patient to closely follow up with surgery as well as primary care provider on discharge. We will continue to follow with general surgery during hospitalization. Thank you kindly for this consultation. The impression and plan of care has been dictated by Grace Hardin, Nurse Practitioner as directed. Dr. Willard MD I have performed a history and examination and MDM of this patient, discussed the same with the dictator, and agree with the dictator's assessment and plan as written ,documented as a scribe. Based on total visit time, I have performed more than 50% of the visit. Objective - Vital Signs Vital signs: Vital Signs Temp 98.0 F 03/02/23 07:32 Pulse 86 03/02/23 07:32 Resp 18 03/02/23 07:32 BP 145/74 03/02/23 07:32 Pulse Ox 91 L 03/02/23 07:32 FiO2 Intake & Output 03/01/23 03/02/23 03/02/23 18:59 06:59 18:59 Output Total 500 Balance -500 Weight 83.915 kg Output: Urine 500 Other: Voiding Method Toilet Toilet Urinal Urinal - Labs CBC & Chem 7: 03/02/23 06:33 03/02/23 06:33 Labs: Abnormal Lab Results - Last 24 Hours (Table) 03/02/23 03/02/23 Range/Units 06:33 06:33 WBC 13.48 H (4.50-10.00) X 10*3/uL RBC 3.94 L (4.40-5.60) X 10*6/uL Hgb 10.5 L (13.0-17.0) g/dL Hct 32.5 L (39.6-50.0) % MCH 26.6 L (27.0-32.0) pg Plt Count 528 H (140-440) X 10*3/uL MPV 9.3 L (9.5-12.2) FL Neutrophils # 9.29 H (1.80-7.70) X 10*3/uL Monocytes # 1.21 H (0.20-1.00) X 10*3/uL Eosinophils # 0.39 H (0.04-0.35) X 10*3/uL Calcium 8.6 L (8.7-10.3) mg/dL
--- NOTE | 2023-03-04 10:26 | CDI ---
Documentation Clarification Form Date: 03/04/2023 From: Janine Peña Admit Date: 02/19/2023 09:39:00 AM Patient Name: Aly Olivera Visit Number: [id number] Discharge Date: 03/02/2023 03:51:00 PM ATTENTION: The Clinical Documentation Specialists (CDI) and [facility] Coding Staff appreciate your assistance in clarifying documentation. Please respond to the clarification below the line at the bottom and electronically sign. The CDI & [facility] Coding staff will review the response and follow-up if needed. Please note: Queries are made part of the Legal Health Record. If you have any questions, please contact the author of this message via ITS. Dr. Ebenezer Singer The final diagnosis of the pathology report states ischemic enteritis Coding guidelines do not allow coding professionals to code based on pathology results; therefore, clarification is requested. History/risk factors: 62yo presented w/ intussusception of the small bowel and leukocytosis. Clinical Indicators: CT A/P 02/18: Approx 7-8cm long segment of small bowel to right colon intussusception. There appears to be a 2cm fat density mass at the lead point. CT A/P 02/20: persistent enterocolonic intussuception w/ dilated proximal small bowel measuring up to 3.4cm essentially unchanged from prior study. Path report 02/22: The proximal terminal ileum has a dusky, dark red discoloration Treatment: Pt underwent ileocolectomy on 02/22 Please clarify the pathology report diagnosis of ischemic enteritis: [ ] Acute ischemic enteritis [ ] Chronic ischemic enteritis [ ] Ischemic enteritis ruled out [ ] Other (please specify) [ ] Unable to determine (Template Last Revised: May 2020) MTDD
== END 2023-03-02 15:51 | disposition home or self-care (01) | DRG 330 ==
LOC: EC 18:47 → 4SSUR 23:45 → OBSVTOIN 02-19 09:39 → 4SSUR 02-19 10:39
PROVIDERS: ADMIT Surgery; ATTEND Surgery
PROC: 0DTJ0ZZ Resection of Appendix, Open Approach (ICD-10-PCS; principal; 2023-02-22 12:15)
PROC: 0DBB0ZZ Excision of Ileum, Open Approach (ICD-10-PCS; principal; 2023-02-22 12:15)
PROC: 0DBH0ZZ Excision of Cecum, Open Approach (ICD-10-PCS; principal; 2023-02-22 12:15)
PROC: 3E0436Z Introduction of Nutritional Substance into Central Vein, Percutaneous Approach (ICD-10-PCS; 2023-02-26)
PROC: B548ZZA Ultrasonography of Superior Vena Cava, Guidance (ICD-10-PCS; 2023-02-26)
PROC: 02HV33Z Insertion of Infusion Device into Superior Vena Cava, Percutaneous Approach (ICD-10-PCS; 2023-02-26)
DX: K56.1 Intussusception (principal); E44.0 Moderate protein-calorie malnutrition; R65.10 Systemic inflammatory response syndrome (SIRS) of non-infectious origin without acute organ dysfunction; J98.11 Atelectasis; E87.6 Hypokalemia; I10 Essential (primary) hypertension; K52.9 Noninfective gastroenteritis and colitis, unspecified; Z68.25 Body mass index [BMI] 25.0-25.9, adult; Z28.21 Immunization not carried out because of patient refusal; Z71.3 Dietary counseling and surveillance; R50.82 Postprocedural fever; K44.9 Diaphragmatic hernia without obstruction or gangrene; L40.9 Psoriasis, unspecified; K56.7 Ileus, unspecified; D72.829 Elevated white blood cell count, unspecified; K21.9 Gastro-esophageal reflux disease without esophagitis; Z86.14 Personal history of Methicillin resistant Staphylococcus aureus infection; Z86.010 Personal history of colon polyps; Z79.899 Other long term (current) drug therapy; Z88.0 Allergy status to penicillin; Z53.20 Procedure and treatment not carried out because of patient's decision for unspecified reasons
CPT/HCPCS: 36415; 36573; 71045; 74018; 74022; 74177; 80048; 80053; 81003; 82040; 82150; 82247; 82330; 83605; 83690; 83735; 84075; 84100; 84155; 84450; 84460; 84478; 84484; 85025; 85027; 86850; 86900; 86901; 88307; 93005; 94760; 96361; 96365; 96366; 96375; 96376; 99285

== ENCOUNTER 2023-03-10 09:42 | Emergency (ER) | payer OTHER ==
--- NOTE | 2023-03-10 10:35 | ED ---
General Adult HPI - General Chief complaint: Recheck/Abnormal Lab/Rx Stated complaint: open wound had stitches removed yesterday Time Seen by Provider: 03/10/23 10:04 Source: patient, RN notes reviewed Mode of arrival: ambulatory Limitations: no limitations - History of Present Illness Initial comments: 62-year-old Male presents to the emergency department for chief complaint of wound problem. She states that he had undergone surgery for small bowel obstruction and intussusception at the end of January performed by Dr. Singer. Patient states that he had the kitty removed yesterday in office and notes that this morning the wound has started to open. He denies fever, chills. He reports that he is on Flagyl currently. - Related Data Home Medications Medication Instructions Recorded Confirmed Omeprazole [PriLOSEC] 20 mg PO DAILY 01/21/21 02/19/23 Cetirizine HCl [Zyrtec] 10 mg PO DAILY 02/19/23 02/19/23 Magnesium 500 mg PO HS 02/19/23 02/19/23 Previous Rx's Medication Instructions Recorded Acetaminophen Tab [Tylenol] 1,000 mg PO Q6HR PRN #30 tablet 03/02/23 Bacitracin/Polymyx Oint 1 applic TOPICAL DAILY 7 Days each 03/02/23 [Polysporin Oint] Ibuprofen [Motrin] 600 mg PO Q8HR PRN #30 tab 03/02/23 Losartan [Cozaar] 25 mg PO DAILY #30 tab 03/02/23 cefUROXime axetiL [Ceftin] 500 mg PO BID 10 Days #20 tab 03/02/23 metroNIDAZOLE [Flagyl] 500 mg PO TID #30 tab 03/02/23 oxyCODONE HCL [OxyIR] 5 mg PO Q6H PRN 2 Days #8 tab 03/02/23 Allergies Allergy/AdvReac Type Severity Reaction Status Date / Time Penicillins Allergy Rash/Hives Verified 03/10/23 09:48 Review of Systems ROS Statement: Those systems with pertinent positive or pertinent negative responses have been documented in the HPI. ROS Other: All systems not noted in ROS Statement are negative. Past Medical History Past Medical History: GERD/Reflux Additional Past Medical History / Comment(s): colon polyps, hiatal hernia, small bowel obstruction/intusseception, psoriasis History of Any Multi-Drug Resistant Organisms: MRSA Date of last positivie culture/infection: 2016 MDRO Source:: rt leg Past Surgical History: Tonsillectomy Additional Past Surgical History / Comment(s): surgery to finger, colonscopies, Past Anesthesia/Blood Transfusion Reactions: Motion Sickness Past Psychological History: No Psychological Hx Reported Smoking Status: Never smoker Past Alcohol Use History: Occasional Past Drug Use History: None Reported - Past Family History Brother(s) Family Medical History: Cancer Additional Family Medical History / Comment(s): melanoma on face General Exam Limitations: no limitations General appearance: alert, in no apparent distress Head exam: Present: atraumatic, normocephalic, normal inspection Eye exam: Present: normal appearance, PERRL, EOMI. Absent: scleral icterus, conjunctival injection, periorbital swelling Respiratory exam: Present: normal lung sounds bilaterally. Absent: respiratory distress, wheezes, rales, rhonchi, stridor Cardiovascular Exam: Present: regular rate, tachycardia GI/Abdominal exam: Present: distended, other Neurological exam: Present: alert, oriented X3 Psychiatric exam: Present: normal affect, normal mood Skin exam: Present: warm, dry, normal color, other (4 cm wound dehiscence). Absent: intact, rash Course Vital Signs 03/10/23 03/10/23 09:46 11:24 Temperature 98.4 F 98.1 F Pulse Rate 104 H 89 Respiratory 20 18 Rate Blood Pressure 134/77 129/76 O2 Sat by Pulse 99 98 Oximetry Medical Decision Making - Medical Decision Making Was pt. sent in by a medical professional or institution (, PA, SPORTING GOODS SALESPERSON, urgent care, hospital, or retirement...) When possible be specific @ -No Did you speak to anyone other than the patient for history (EMS, parent, family, police, friend...)? What history was obtained from this source @ -No Did you review nursing and triage notes (agree or disagree)? Why? @ -I reviewed and agree with nursing and triage notes Were old charts reviewed (outside hosp., previous admission, EMS record, old EKG, old radiological studies, urgent care reports/EKG's, retirement records)? Report findings @ -No old charts were reviewed Differential Diagnosis (chest pain, altered mental status, abdominal pain women, abdominal pain men, vaginal bleeding, weakness, fever, dyspnea, syncope, headache, dizziness, GI bleed, back pain, seizure, CVA, palpatations, mental health, musculoskeletal)? @ -not applicable EKG interpreted by me (3pts min.). @ -none X-rays interpreted by me (1pt min.). @ -None done CT interpreted by me (1pt min.). @ -None done U/S interpreted by me (1pt. min.). @ -None done What testing was considered but not performed or refused? (CT, X-rays, U/S, labs)? Why? @ -None What meds were considered but not given or refused? Why? @ -None Did you discuss the management of the patient with other professionals (professionals i.e. , PA, SPORTING GOODS SALESPERSON, lab, RT, psych nurse, licensed clinical social worker, production planning supervisor, teacher, ordnance officer, child welfare caseworker)? Give summary @ -Case discussed with Dr. Singer who came down to the emergency department to evaluate the patient. He recommends an abdominal binder Was smoking cessation discussed for >3mins.? @ -No Was critical care preformed (if so, how long)? @ -No Were there social determinants of health that impacted care today? How? (Homelessness, low income, unemployed, alcoholism, drug addiction, transportation, low edu. Level, literacy, decrease access to med. care, penitentiary, rehab)? @ -No Was there de-escalation of care discussed even if they declined (Discuss DNR or withdrawal of care, Hospice)? DNR status @ -No What co-morbidities impacted this encounter? (DM, HTN, Smoking, COPD, CAD, Cancer, CVA, ARF, Chemo, Hep., AIDS, mental health diagnosis, sleep apnea, morbid obesity)? @ -None Was patient admitted / discharged? Hospital course, mention meds given and route, prescriptions, significant lab abnormalities, going to OR and other pertinent info. @ -Discharged. Patient presented to the emergency department for chief complaint of wound dehiscence. [place] removed yesterday. His surgeon Dr. Singer came down to the emergency department to evaluate the patient. Patient provided an abdominal binder in is going to follow-up with him tomorrow in the office. Patient understands we will discharge him. Patient stable at discharge. Case discussed with Dr. Meyer Undiagnosed new problem with uncertain prognosis? @ -No Drug Therapy requiring intensive monitoring for toxicity (Heparin, Nitro, Insulin, Cardizem)? @ -No Were any procedures done? @ -No Diagnosis/symptom? @ -wound dehiscence Acute, or Chronic, or Acute on Chronic? @ -acute Uncomplicated (without systemic symptoms) or Complicated (systemic symptoms)? @ -uncomplicated Side effects of treatment? @ -No Exacerbation, Progression, or Severe Exacerbation? @ -No Poses a threat to life or bodily function? How? (Chest pain, [place], [place], pneumonia, PE, COPD, DKA, ARF, appy, cholecystitis, CVA, Diverticulitis, Homicidal, Suicidal, threat to staff... and all critical care pts) @ -No Disposition Clinical Impression: Surgical wound dehiscence Disposition: HOME SELF-CARE Condition: Stable Instructions (If sedation given, give patient instructions): Wound Dehiscence (ED) Additional Instructions: Please utilize the abdominal binder. Follow up with Dr. Singer tomorrow. Return to the emergency department for new or worsening symptoms. Is patient prescribed a controlled substance at d/c from ED?: No Referrals: Arvind Santamaria DO [Primary Care Provider] - 1-2 days
--- NOTE | 2023-03-10 10:55 | P.GSCN ---
History of Present Illness Consult date: 03/10/23 Reason for Consult: Skin dehiscence History of present illness: This is a 62-year-old male with previous history of exploratory laparotomy and ileocolectomy for small bowel obstruction. Patient was seen in the office yesterday. Patient had been doing well. Patient had his kitty removed in the office. The patient stated this morning he bent over and noticed some serous fluid draining near the umbilicus. The skin had dehisced approximately 3 cm in this area. Patient denies any purulent drainage. The patient had had some previous serous drainage from the area. He denies any significant abdominal pain. Past Medical History Past Medical History: GERD/Reflux Additional Past Medical History / Comment(s): colon polyps, hiatal hernia, small bowel obstruction/intusseception, psoriasis History of Any Multi-Drug Resistant Organisms: MRSA Year Discovered:: 2015 MDRO Source:: rt leg Past Surgical History: Tonsillectomy Additional Past Surgical History / Comment(s): surgery to finger, colonscopies, Past Anesthesia/Blood Transfusion Reactions: Motion Sickness Past Psychological History: No Psychological Hx Reported Smoking Status: Never smoker Past Alcohol Use History: Occasional Past Drug Use History: None Reported - Past Family History Brother(s) Family Medical History: Cancer Additional Family Medical History / Comment(s): melanoma on face Medications and Allergies Home Medications Medication Instructions Recorded Confirmed Type Omeprazole [PriLOSEC] 20 mg PO DAILY 01/21/21 02/19/23 History Cetirizine HCl [Zyrtec] 10 mg PO DAILY 02/19/23 02/19/23 History Magnesium 500 mg PO HS 02/19/23 02/19/23 History Acetaminophen Tab [Tylenol] 1,000 mg PO Q6HR PRN #30 tablet 03/02/23 Rx Bacitracin/Polymyx Oint 1 applic TOPICAL DAILY 7 Days each 03/02/23 Rx [Polysporin Oint] Ibuprofen [Motrin] 600 mg PO Q8HR PRN #30 tab 03/02/23 Rx Losartan [Cozaar] 25 mg PO DAILY #30 tab 03/02/23 Rx cefUROXime axetiL [Ceftin] 500 mg PO BID 10 Days #20 tab 03/02/23 Rx metroNIDAZOLE [Flagyl] 500 mg PO TID #30 tab 03/02/23 Rx oxyCODONE HCL [OxyIR] 5 mg PO Q6H PRN 2 Days #8 tab 03/02/23 Rx Allergies Allergy/AdvReac Type Severity Reaction Status Date / Time Penicillins Allergy Rash/Hives Verified 03/10/23 09:48 Surgical - Exam Vital Signs Temp Pulse Resp BP Pulse Ox 98.4 F 104 H 20 134/77 99 03/10/23 09:46 03/10/23 09:46 03/10/23 09:46 03/10/23 09:46 03/10/23 09:46 - General well developed, well nourished, no distress - Eyes PERRL - ENT normal pinna - Neck no masses - Respiratory normal expansion - Cardiovascular Rhythm: regular - Abdomen The patient is a recent laparotomy scar. There is an area of prostate 3 cm was skin was dehisced near the umbilicus. There is a seroma cavity. The fascia appears to be intact below this. It appears that a seroma has spontaneous a drain. There is no sign of infection. Abdomen: soft, non tender Assessment and Plan Assessment: Abdominal wound seroma with skin dehiscence. Patient will continue local wound care. The patient will have a dressing applied and abdominal binder. He'll follow-up in my office tomorrow.
[2023-03-10 11:31] VITALS: BP 129/76; PULSE 89; RESP 18; TEMP 98.1
== END 2023-03-10 11:30 | disposition home or self-care (01) ==
LOC: EC 09:42
DX: T81.30XA Disruption of wound, unspecified, initial encounter (principal); K21.9 Gastro-esophageal reflux disease without esophagitis; Z79.899 Other long term (current) drug therapy; Z88.0 Allergy status to penicillin
CPT/HCPCS: 99283

== ENCOUNTER 2023-06-02 05:48 | Observation (INO) | payer OTHER ==
[~2023-06-02 05:48] MED LIST changes: +HEPARIN SODIUM,PORCINE 5,000 UNIT/ML 1 ML VIAL SQ PRN; -LACTATED RINGERS 1,000 ML IV SCH
[2023-06-02] MEDS: LACTATED RINGERS 1,000 ML IV SCH (06:20)
[2023-06-02] MEDS: MIDAZOLAM 2 MG/2 ML VIAL IVP ONE (06:53)
--- NOTE | 2023-06-02 07:11 | P.ANPRN ---
Procedure Note - Anesthesia - Nerve Block Performed Bilateral Erector Spinae Single Time Out Performed: Yes Date of Procedure: 06/02/23 Procedure Start Time: 06:50 Procedure Stop Time: 06:59 Location of Patient: PreOp Indication: Acute Post-Operative Pain, Analgesia, Requested by Surgeon Sedation Type: Sedate with meaningful contact maintained Preparation: Sterile Prep Position: Prone Catheter: None Needle Types: Pajunk Needle Gauge: 21 Ultrasound used to visualize needle placement: Yes Ultrasound used to observe medication spread: Yes Injectate: 0.5% Ropivacaine (see comment for volume) (Ropiv 20ml+decadron 4mg--on each side) Blood Aspirated: No Pain Paresthesia on Injection Noted: No Resistance on Injection: Normal Image Stored and Saved: Yes Events: Uneventful and Well Tolerated
[2023-06-02] MEDS: FAMOTIDINE 20 MG/2 ML VIAL IVP ONE (07:15)
[2023-06-02] MEDS: DEXAMETHASONE SOD PHOSPHATE 4 MG/ML 1 ML VIAL IV ONE (07:15)
[2023-06-02] MEDS: ONDANSETRON 4 MG/2 ML VIAL IVP ONE (07:15)
[2023-06-02] MEDS: HEPARIN SODIUM,PORCINE 5,000 UNIT/ML 1 ML VIAL SQ ONE (07:15)
[2023-06-02] MEDS: BUPIVACAINE (PF) 0.25% 30 ML VIAL SQ ONE (07:18)
[2023-06-02] MEDS ORDERED: GLYCOPYRROLATE 0.2 MG/ML 2 ML VIAL ONE (07:25)
[2023-06-02] MEDS ORDERED: NEOSTIGMINE 1 MG/ML 10 ML VIAL ONE (07:25)
[2023-06-02] MEDS: ACETAMINOPHEN TAB 500 MG TAB PO PRN (07:25)
[2023-06-02] MEDS ORDERED: ROCURONIUM 10 MG/ML (5 ML VIAL) IV ONE (07:25)
[2023-06-02] MEDS ORDERED: KETAMINE HCL IN 0.9 % NACL 50 MG/5 ML SYRINGE ONE (07:25)
[2023-06-02] MEDS ORDERED: SUCCINYLCHOLINE CHLORIDE 200 MG/10 ML VIAL IV ONE (07:25)
[2023-06-02] MEDS ORDERED: LIDOCAINE 1% INJ 10MG/ML (20 ML MDV) ONE (07:25)
[2023-06-02] MEDS ORDERED: KETOROLAC 15 MG/ML 1 ML VIAL ONE (07:25)
[2023-06-02] MEDS ORDERED: DEXAMETHASONE SOD PHOSPHATE 10 MG/ML 1 ML VIAL ONE (07:25)
[2023-06-02] MEDS ORDERED: PROPOFOL 10 MG/ML 20 ML VIAL IV ONE (07:25)
[2023-06-02] MEDS ORDERED: ROPIVACAINE 5 MG/ML 30 ML VIAL ONE (07:25)
[2023-06-02] MEDS ORDERED: DEXAMETHASONE SOD PHOSPHATE 4 MG/ML 1 ML VIAL ONE (07:25)
[2023-06-02] MEDS ORDERED: ePHEDrine 50 MG/ML 1 ML VIAL ONE (07:25)
[2023-06-02] MEDS ORDERED: fentaNYL (PF) 50 MCG/ML 2 ML AMP ONE (07:25)
[2023-06-02 08:10] LABS: Basophils # (A) 0.1 k/uL (0-0.2); Basophils % (A) 1 %; Eosinophils # (A) 0.2 k/uL (0-0.7); Eosinophils % (A) 3 %; HCT 40.3 % (39.0-53.0); HGB 13.3 gm/dL (13.0-17.5); Lymphocytes # (A) 2.4 k/uL (1.0-4.8); Lymphocytes % (A) 29 %; MCV 81.9 fL (80.0-100.0); Mean Platelet Volume 7.5; Monocytes # (A) 0.6 k/uL (0-1.0); Monocytes % (A) 7 %; Neutrophils # (A) 4.8 k/uL (1.3-7.7); Neutrophils % (A) 58 %; Platelet Count 371 k/uL (150-450); RBC 4.92 m/uL (4.30-5.90); RDW 15.4 % (11.5-15.5); WBC 8.3 k/uL (3.8-10.6)
[2023-06-02] MEDS ORDERED: ACETAMINOPHEN TAB 325 MG TAB PO PRN (09:38)
[2023-06-02] MEDS ORDERED: NALOXONE 0.4 MG/ML 1 ML VIAL IV PRN (09:38)
--- NOTE | 2023-06-02 09:38 | P.OP ---
Date of Procedure: 06/02/23 Preoperative Diagnosis: incisional hernia Postoperative Diagnosis: incisional hernia Procedure(s) Performed: open repair of incisional hernia with onlay Prolene mesh Anesthesia: CASSANDRA Surgeon: Ebenezer Singer Estimated Blood Loss (ml): 25 Pathology: none sent Condition: stable Disposition: PACU Description of Procedure: the patient's placed on the operative table in the supine position. He received general endotracheal tube anesthesia. His abdomen was prepped and draped usual fashion. The patient had a midline incisional hernia. The skin was incised from the scar. The skin was excised and sent for disposal. Then using electrocautery the abdominal wall was divided. The patient had small bowel adherent to the hernia sac. This was lysed with sharp dissection. The hernia defect measured approximately 15 x 8 cm. Once the adhesions were lysed. The fascia was reapproximated using 0 Ethibond suture. This was repaired. Fashion. And then a #1 Armond fix suture was used to buttress the repair. The Prolene mesh was then cut to appropriate size and placed over top of the hernia repair. The mesh measured approximately 8 x 6". This was secured with a secure strap tacker. A MARIBELL drains placed over top apparent brought through separate stab incision left upper quadrant. Finn's fascia with 0 Vicryl. Skin was closed kitty. Patient top she will. He was sent to recovery in stable condition.
[2023-06-02] MEDS: HYDROmorphone 0.5 MG/0.5 ML SYRINGE IVP PRN (09:50)
[2023-06-02] MEDS: ACETAMINOPHEN IV (For NPO) 1,000 MG/100 ML VIAL IVPB ONE (11:28)
[2023-06-02] MEDS: METOPROLOL TARTRATE 5 MG/5 ML VIAL IVP ONE (11:29)
[2023-06-02] MEDS: KETOROLAC 15 MG/ML 1 ML VIAL IVP SCH (13:13)
[2023-06-02] MEDS: HYDROmorphone 1 MG/ML 1 ML SYRINGE IVP PRN (16:07)
--- NOTE | 2023-06-02 19:20 | CONS ---
CONSULTATION REASON FOR CONSULTATION: Advice regarding GERD and other medical issues requested by Surgery. HISTORY OF PRESENT ILLNESS: This is a 62-year-old gentleman with a past medical history of multiple medical issues including GERD, MRSA, underwent open repair of incisional hernia with Prolene mesh. The patient had a MARIBELL drain. The patient is being closely monitored. The patient has severe pain. There is no history of any fever, rigors, or chills at this time. PAST MEDICAL HISTORY: Reviewed include GERD, colonic polyps, and MRSA. Rest of the history and rest of the chart is also reviewed. HOME MEDICATIONS: Reviewed include Tylenol. ALLERGIES: Penicillin. FAMILY HISTORY: History of melanoma of the face. SOCIAL HISTORY: Occasional alcohol. REVIEW OF SYSTEMS: Fourteen-point review is negative except as mentioned earlier. PHYSICAL EXAMINATION: VITAL SIGNS: Pulse is 112, blood pressure 140/80, respirations 16. CHEST: Clear to auscultation. CARDIOVASCULAR: S1, S2 muffled. ABDOMEN: Soft, status post surgery. NERVOUS SYSTEM: Nonfocal. LABORATORY DATA: Noted. ASSESSMENT: 1. Status post open repair of incisional hernia with Prolene mesh. 2. Gastroesophageal reflux disease. 3. History of sleep apnea. 4. History of bowel resection. RECOMMENDATIONS AND DISCUSSION: This is a 62-year-old gentleman presented after surgery. At this time, I recommend to continue the current medications, continue symptomatic treatment. I would recommend to resume the home medications and DVT prophylaxis. Incentive spirometry. We will follow the patient closely with you. The patient is on Lovenox. Pain management per Surgery and further recommendations to follow. Recommended close followup with primary physician after discharge. MMODL / IJN: [id number] /
[2023-06-02] MEDS: HYDROcodone/APAP 5-325MG 1 EACH TAB PO PRN (19:38)
[2023-06-02] MEDS: LACTATED RINGERS 1,000 ML IV ONE (20:29)
[2023-06-02] MEDS: MAGNESIUM OXIDE 400 MG TAB PO SCH (20:29)
[2023-06-03] MEDS: PANTOPRAZOLE 40 MG TABLET PO SCH (06:26)
[2023-06-03 08:27] VITALS: RESP 17
[2023-06-03] MEDS: ENOXAPARIN 40 MG/0.4 ML SYRINGE SQ SCH (09:03)
[2023-06-03] MEDS: LORATADINE 10 MG TAB PO SCH (09:03)
[2023-06-03] MEDS: ONDANSETRON 4 MG/2 ML VIAL IVP PRN (12:20)
--- NOTE | 2023-06-03 13:03 | P.DS ---
Providers Expected date of discharge: 06/03/23 Attending physician: Ebenezer Singer Consults: 06/02/23 09:38 Consult Physician Routine Consulting Provider: Ama Lamar Consult Reason/Comments: medical management Do you want consulting provider notified?: Yes [facility] care [facility] Course: Discharge diagnosis 1. Incisional hernia Hospital course This is a 62-year-old male with incisional hernia. He is status post open repair of incisional hernia with onlay Prolene mesh. Patient's pain is controlled. He is tolerating diet. He has been up and ambulating. He is afebrile. He has Prevana wound vac intact. Patient seen and examined by Dr. Singer. Patient is stable for discharge. Please refer to chart for any further details. 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 Signing provider agrees with the documented findings, assessment, and plan of care. Patient Condition at Discharge: Stable Plan - Discharge Summary Discharge Rx Participant: No New Discharge Prescriptions: New Cephalexin [Keflex] 500 mg PO Q8HR 10 Days #30 cap Acetaminophen Tab [Tylenol] 1,000 mg PO Q6HR PRN #30 tablet PRN Reason: Pain Ibuprofen [Motrin] 600 mg PO Q8HR PRN #30 tab PRN Reason: Pain oxyCODONE HCL [OxyIR] 5 mg PO Q6H PRN 3 Days #12 tab PRN Reason: Pain Continue Omeprazole [PriLOSEC] 20 mg PO DAILY Magnesium 500 mg PO HS Acetaminophen Tab [Tylenol] 500 mg PO DIRECTED PRN PRN Reason: Pain Cetirizine HCl [Zyrtec] 10 mg PO DAILY Discharge Medication List Omeprazole [PriLOSEC] 20 mg PO DAILY 01/21/21 [History] Cetirizine HCl [Zyrtec] 10 mg PO DAILY 02/19/23 [History] Magnesium 500 mg PO HS 02/19/23 [History] Acetaminophen Tab [Tylenol] 500 mg PO DIRECTED PRN 05/28/23 [History] Acetaminophen Tab [Tylenol] 1,000 mg PO Q6HR PRN #30 tablet 06/03/23 [Rx] Cephalexin [Keflex] 500 mg PO Q8HR 10 Days #30 cap 06/03/23 [Rx] Ibuprofen [Motrin] 600 mg PO Q8HR PRN #30 tab 06/03/23 [Rx] oxyCODONE HCL [OxyIR] 5 mg PO Q6H PRN 3 Days #12 tab 06/03/23 [Rx] Follow up Appointment(s)/Referral(s): Ebenezer Singer MD [STAFF PHYSICIAN] - 06/08/23 2:50 pm Activity/Diet/Wound Care/Special Instructions: No driving while taking OxyIR No lifting over 10 pounds You may shower. No soaking or tub baths for 2 weeks Very light activity until you are reevaluated at your follow up appointment with your surgeon Keep a log of MARIBELL drain output and bring with you to your follow-up appointment Milk/strip drains 2-3 times a day Discharge Disposition: HOME SELF-CARE
[2023-06-03 15:13] VITALS: BP 127/72; PULSE 114; TEMP 98.1
--- NOTE | 2023-06-06 20:36 | P.PN ---
Subjective Progress Note Date: 06/03/23 This is a pleasant 62-year-old male who was admitted under surgery services status post open repair of incisional hernia with Prolene mesh postop day 1. Patient with some abdominal distention with reports of some gas with no bowel movement as of yet. Patient has been up and walking and feels generally weak but improving. Patient with incentive spirometer at bedside continued encouraged use at least 10 times every hour while awake. Patient has been advancing diet and discussion of possible discharge planning in place. Recommend abdominal binder while up and out of bed. Review of systems: Constitutional: No reports of fatigue, fever, or chills Cardiovascular: No reports of chest pain or palpitations Respiratory: No reports of shortness of breath or cough GI: reports of occasional nausea and burping, no reports of vomiting, no diarrhea but reports to passing : No reports of dysuria or retention Neurovascular: reports of generalized weakness All medications have been reviewed PHYSICAL EXAMINATION: GENERAL: The patient is alert and oriented x4, Well developed, well nourished. HEENT: Pupils are round and equally reacting to light. EOMI. no scleral icterus. No conjunctival pallor. Normocephalic, atraumatic. No pharyngeal erythema. No thyromegaly. CARDIOVASCULAR: S1 and S2 muffled PULMONARY: diminished breath sounds bilaterally with no wheezing or rhonchi noted. ABDOMEN: soft. Tender on exam and mildly distended, normoactive bowel sounds. No palpable organomegaly. MUSCULOSKELETAL: No joint swelling or deformity. EXTREMITIES: No cyanosis, clubbing, or pedal edema. NEUROLOGICAL: Gross neurological examination did not reveal any focal deficits. Diffuse weakness SKIN: No rashes. Assessment: Status post open repair of incisional hernia with Prolene mesh History of gastroesophageal reflux disease History of sleep apnea History of bowel resection GI prophylaxis DVT prophylaxis Full code Plan: Recommend to continue with current medications and management per general surgery services. Patient is postop day 1 of open repair with incisional hernia including Prolene mesh. Prevana wound VAC in place and will likely be continuing and will need continued home care and close follow-up in the outpatient setting Patient reports he has been up and walking the halls and will be going home on discharge Encouraged incentive spirometer use at least 10 times every hour while awake Patient to be continued on clear liquid diet and advance per surgery Patient medically stable for discharge when cleared by surgery Thank you kindly for this consultation. We will continue to follow during hospitalization. The impression and plan of care has been dictated by Grace Hardin, nurse practitioner as directed. Dr. Katie ENCINAS I have performed a history and examination and MDM of this patient, discussed the same with the dictator, and agree with the dictator's assessment and plan as written ,documented as a scribe. Based on total visit time, I have performed more than 50% of the visit. Any additional findings or plans will be noted. Objective - Vital Signs Vital signs: Vital Signs Temp 98.1 F 06/03/23 13:09 Pulse 114 H 06/03/23 13:09 Resp 17 06/03/23 13:09 BP 127/72 06/03/23 13:09 Pulse Ox 93 L 06/03/23 13:09 FiO2 Intake & Output 06/02/23 06/03/23 06/03/23 18:59 06:59 18:59 Intake Total 1550 Output Total 55 1230 Balance 1495 -1230 Weight 86.2 kg Intake: IV 1550 Output: Drainage 30 30 Left Anterior Abdomen 30 30 Urine 1200 Estimated Blood Loss 25 - Labs CBC & Chem 7: 06/02/23 06:35
== END 2023-06-03 16:43 | disposition home or self-care (01) ==
LOC: OR 05:48 → 4SSUR 12:32 → OR 06-03 12:31
PROVIDERS: ADMIT Surgery; ATTEND Surgery
DX: K43.2 Incisional hernia without obstruction or gangrene (principal); K21.9 Gastro-esophageal reflux disease without esophagitis; G47.33 Obstructive sleep apnea (adult) (pediatric); H93.19 Tinnitus, unspecified ear; Z86.14 Personal history of Methicillin resistant Staphylococcus aureus infection; Z86.010 Personal history of colon polyps; Z90.49 Acquired absence of other specified parts of digestive tract; Z88.0 Allergy status to penicillin; Z98.890 Other specified postprocedural states
CPT/HCPCS: 96372; 64999; 85025; 49595; G0378; C1781; J2250; J0330; J1644; J1100 ×2; J2710; J0690; J2405 ×2; J2001; J1650; J3010; J3490; J1170 ×3; J2795; J0131; J1885 ×2; J2704